=== PATIENT | female | born 1970 | race Caucasian/White ===

== ENCOUNTER 2020-01-12 15:40 | Emergency (ER) | payer OTHER, SELFPAY ==
[2020-01-12 16:07] VITALS: BP 153/89; PULSE 74; RESP 18; TEMP 36.3; O2SAT 100
[2020-01-12 16:27] LABS: Basophils Absolute Auto 0.1 K/mm3 (0.0-0.1); Basophils Percent Auto 1.4 % (0.2-1.2); Eosinophils Absolute Auto 0.5 K/mm3 (0-0.3); Eosinophils Percent Auto 4.9 % (0-4.4); Hematocrit 37.2 % (37.0-47.0); Hemoglobin 12.1 g/dL (12.0-15.0); Immature Granulocyte Absolute 0.04 K/mm3 (0.00-0.031); Immature Granulocyte Percent A 0.4 % (0-0.5); Lymphocytes Absolute Auto 3.27 K/mm3 (0.9-3.2); Lymphocytes Percent Auto 34.7 % (18.3-44.2); Mean Corpuscular HGB Conc 32.5 g/dl (32-36); Mean Corpuscular Hemoglobin 27.5 pg (26-34); Mean Corpuscular Volume 84.5 fl (80-100); Mean Platelet Volume 10.9 fl (7.4-10.4); Monocytes Absolute Auto 0.6 K/mm3 (0.1-0.6); Monocytes Percent Auto 6.3 % (2.6-8.5); Neutrophils Absolute Auto 4.9 K/mm3 (1.3-6.7); Neutrophils Percent Auto 52.3 % (45.5-73.1); Platelet Count Result 289 k/mm3 (150-375); Red Cell Distribution Width 15.3 % (11.5-14.5); White Blood Count 9.4 K/mm3 (4.5-10.0)
[2020-01-12 16:36] LABS: Add Urine Microscopic? YES; Appearance Urine Clear (Clear); Bacteria Urine Trace /hpf; Bilirubin Urine Negative (Negative); Blood Urine 1+ (Negative); Color Urine Yellow (Yellow); Glucose Urine UA Negative (Negative); Ketones Urine Negative (Negative); Leukocyte Esterase Ur 1+ LEU/UL (Negative); Mucus Urine Rare /lpf; Nitrate Urine Negative (Negative); Protein Urine Negative (Negative); RBC Urine 0-2 /hpf (0-2); Specific Grav Ur 1.027 (1.001-1.035); Squamous Epithelial Cell Urine Many /hpf (Few)
[2020-01-12 16:42] LABS: Alanine Aminotransferase 47 U/L (4-35); Alkaline Phosphatase 129 U/L (38-126); Anion Gap 11.8 mmol/L (7-16); Aspartate Amino Transferase 33 U/L (14-36); Bilirubin,Total 0.3 mg/dL (0.2-1.3); Blood Urea Nitrogen 20 mg/dL (7-17); Calcium 9.1 mg/dL (8.4-10.2); Carbon Dioxide 26 mmol/L (22-30); Chloride 105 mmol/L (98-107); Estimated CRCL calculation 125 ml/min; Estimated Glomerular Filt Rate > 60; Glucose 109 mg/dL (65-105); Lipase 78 U/L (23-300); Potassium 3.8 mmol/L (3.4-5.0); Sodium 139 mmol/L (137-145)
--- NOTE | 2020-01-12 17:42 | ED.ABDPAIN ---
HPI - Abdominal Pain General Chief Complaint: Abdominal Pain Stated Complaint: ABD Pain x 1 month Time Seen by Provider: 01/12/20 17:00 Source: patient Mode of arrival: ambulatory Limitations: no limitations History of Present Illness HPI narrative: 49-year-old female Complains of upper abdominal pain for little over a month For about 2 weeks it has been a little bit worse She feels like she can feel a swelling inside in her left upper quadrant She has some nausea and one episode of diarrhea today but those have not been present for most of the time No urinary symptoms She has an appointment for an ultrasound of something in her abdomen here next week she is not sure exactly what the study entails She previously had a cholecystectomy MD elicited complaint: abdominal pain Onset (ago): week(s) Pain Consistency: intermittent Quality: fullness Radiation: LUQ and epigastric Exacerbating factors: nothing Relieving factors: nothing Related Data Home Medications Medication Instructions Recorded Confirmed duloxetine 60 mg PO BID 05/13/19 05/13/19 ergocalciferol (vitamin D2) 50,000 unit PO WEEKLY 05/13/19 05/13/19 [Vitamin D2] famotidine 20 mg PO BID 05/13/19 05/13/19 hydroxyzine HCl 50 mg BYMOUTH TID PRN 05/13/19 05/13/19 metformin 500 mg BYMOUTH BID 05/13/19 05/13/19 Allergies Allergy/AdvReac Type Severity Reaction Status Date / Time No Known Allergies Allergy Verified 01/12/20 16:58 Review of Systems Review of Systems: All systems reviewed & are unremarkable except as noted in HPI and below Constitutional: Constitutional: Denies chills and Denies fever(s) ENT: Denies dysphagia and Denies epistaxis Cardiovascular: Cardiovascular: Denies chest pain Respiratory: Respiratory: Denies cough Gastrointestinal: Gastrointestinal: Reports abdominal pain, Reports diarrhea, Reports nausea and Reports vomiting Musculoskeletal: Musculoskeletal: Reports no additional musculoskeletal complaints Integumentary/Breasts: Skin/Breast: Reports system reviewed and no additional complaints, except as docu PMFSH Past Medical History Medical History Anxiety Back pain Depression Diabetes Diabetic neuropathy DM2 (diabetes mellitus, type 2) Endometriosis GERD (gastroesophageal reflux disease) Hip pain, left History of HPV infection HLD (hyperlipidemia) HTN (hypertension) Kidney stone Knee pain, left Numbness in both hands Ovarian cyst Bilateral Surgical History Surgical History History of cholecystectomy History of loop electrical excision procedure (LEEP) Family History Family History Mother Family history of kidney disease Family history of diabetes mellitus in first degree relative Sibling Family history of diabetes mellitus in first degree relative Patient's brother is in good health Other Cerebrovascular accident Family history of allergic disorder Family history of cardiovascular disease Hypertension Social History Social History (Updated 05/13/19 @ 18:14 by Eva Vásquez NP) Social History: The patient is single. She does not have a durable power food processor. She does need to have to be a full code. She has no children. She works in the bakery at [employer] Smoking status: Never smoker Alcohol intake: never Substance use: never Additional occupation/education comments: Bakery at [employer] Gender identity (if verbalized by the patient): Female Spiritual care concerns: No Agree to blood products: Yes Exam Const: General: no acute distress and well developed Nutritional Appearance: obese Orientation/consciousness: patient oriented x3 (alert) and Other orientation findings (Alert) HENMT: Head: normocephalic and atraumatic General nose exam: No nasal discharge present and no epistaxis F
[2020-01-12] MEDS: BELLADONNA ALK/PHENOB ELIX 10 ML, MAG HYDROX/ALUMINUM HYD/SIMETH 30 ML, LIDOCAINE HCL 2... PO (17:54)
--- NOTE | 2020-01-12 18:48 | PC.NURSE ---
pt reports no change in abd pain after gi cocktail
[2020-01-12 19:17] VITALS: BP 148/83; PULSE 71; RESP 16; O2SAT 100
== END 2020-01-12 19:19 | disposition home or self-care (01) ==
PROVIDERS: Emergency Medicine; Emergency Provider Emergency Medicine; PCP Family Medicine
DX: R10.13 Epigastric pain (principal); G89.29 Other chronic pain; K21.9 Gastro-esophageal reflux disease without esophagitis; E11.40 Type 2 diabetes mellitus with diabetic neuropathy, unspecified; Z79.84 Long term (current) use of oral hypoglycemic drugs; E78.5 Hyperlipidemia, unspecified; I10 Essential (primary) hypertension; Z87.442 Personal history of urinary calculi; F41.9 Anxiety disorder, unspecified; F32.9 Major depressive disorder, single episode, unspecified; N80.9 Endometriosis, unspecified
CPT/HCPCS: 36415; 80053; 81001; 81025; 83690; 85025; 99283; A9270

== ENCOUNTER 2020-01-18 08:57 | Outpatient (CLI) | payer OTHER, SELFPAY ==
--- NOTE | ~2020-01-18 | US_ITS ---
EXAMINATION: US abdomen complete EXAM DATE: 01/18/2020 09:52 INDICATION: Abdominal pain. TECHNIQUE: Multiple grayscale and Doppler images of the complete abdomen were obtained (by a technolo gist who performed the scan) and subsequently reviewed. Comparison is made to prior examination from 04/20/2014. FINDINGS: The abdominal aorta is normal in caliber. Visualized portion IVC is patent. The pancreatic head a nd body are normal in appearance. The pancreatic tail is not visualized. There is echogenic liver parenchyma, hepatic steatosis. There are no focal liver lesions identified. There is no evidence of intrahepatic biliary duct dilation. Portal venous flow was seen in the he patopedal, normal direction and has normal Doppler waveform. Common bile duct measures 5 mm, which is normal. The gallbladder fossa is unremarkable. Right kidney: There is normal contour and echogenicity. It measures 10.1 x 4.6 x 5.2 centimeters. There are no focal renal lesions identified. There is no hydronephrosis. Left kidney: There is normal contour and echogenicity. It measures 10.8 x 4.5 x 6.0 centimeters. T here are no focal renal lesions identified. There is no hydronephrosis. The spleen measures 10.5 x 5.4 centimeters and is morphologically normal. IMPRESSION: 1. Hepatic steatosis. Reviewed, dictated and finalized at location A. IMPRESSION: 1. Hepatic steatosis.
== END 2020-01-18 08:58 | disposition home or self-care (01) ==
LOC: ANHIMG 09:01
PROVIDERS: PCP Family Medicine; Visit Provider Family Medicine
DX: K76.0 Fatty (change of) liver, not elsewhere classified (principal)
CPT/HCPCS: 76700

== ENCOUNTER 2021-09-13 09:28 | Emergency (ER) | payer BC, MEDICAID, SELFPAY ==
[2021-09-13] VITALS (14 sets, daily range): BP systolic 112–147; BP diastolic 71–114; PULSE 72–167; RESP 13–33; TEMP 36.6; O2SAT 96–100
--- NOTE | 2021-09-13 09:35 | ECG_ITS ---
Measurements Intervals [place] Rate: 169 P: WV: 0 QRS: -9 QRSD: 96 T: 31 QT: 269 QTc: 452 Interpretive Statements SUPRAVENTRICULAR TACHYCARDIA CANNOT RULE OUT SEPTAL MYOCARDIAL INFARCTION , OLD [40+ ms Q WAVE IN V1/V2] COMPARED TO ECG 05/13/2019 12:45:31 SVT REPLACES SINUS RHYTHM Electronically Signed On 09-16-2021 16:59:04 CDT by Eric Parks M.D.
--- NOTE | 2021-09-13 09:45 | PC.NURSE ---
Pt given 6mg adenosine per verbal order by Dr. Car who was at bedside. Pt tolerated well and hr converted to SR 90s and is resting comfortably at this time. Normal saline 1L bolus started per verbal order as well.
[2021-09-13 09:53] LABS: Basophils Absolute Auto 0.2 K/mm3 (0.0-0.1); Basophils Percent Auto 1.5 % (0.2-1.2); Eosinophils Absolute Auto 0.8 K/mm3 (0-0.3); Eosinophils Percent Auto 6.3 % (0-4.4); Hematocrit 46.3 % (37.0-47.0); Immature Granulocyte Absolute 0.03 K/mm3 (0.00-0.031); Immature Granulocyte Percent A 0.2 % (0-0.5); Lymphocytes Absolute Auto 5.06 K/mm3 (0.9-3.2); Lymphocytes Percent Auto 39.1 % (18.3-44.2); Mean Corpuscular HGB Conc 32.4 g/dl (32-36); Mean Corpuscular Hemoglobin 27.4 pg (26-34); Mean Corpuscular Volume 84.6 fl (80-100); Mean Platelet Volume 11.1 fl (7.4-10.4); Monocytes Absolute Auto 0.7 K/mm3 (0.1-0.6); Neutrophils Absolute Auto 6.2 K/mm3 (1.3-6.7); Neutrophils Percent Auto 47.9 % (45.5-73.1); Platelet Count Result 341 k/mm3 (150-375); Red Blood Count 5.47 M/mm3 (4.2-5.4); Red Cell Distribution Width 14.3 % (11.5-14.5); White Blood Count 12.9 K/mm3 (4.5-10.0)
--- NOTE | 2021-09-13 09:55 | ED.ARRPALP ---
HPI - Arrhythmia/Palpitations General Chief Complaint: Arrhythmia/Palpitations Stated Complaint: arrhythmia, SOB Time Seen by Provider: 09/13/21 09:34 Source: patient History of Present Illness HPI narrative: 50-year-old female history of paroxysmal SVT presents to the emergency department for evaluation of tachycardia that started at approximately 9 AM today. Patient states she has previously have paroxysmal SVT and has required cardioversion with Adenocard previously. Patient was supposed to be on daily metoprolol but states that she has stopped this due to her prescription not being refilled. Patient states she was unable to get a refill from her primary care physician and has been off of the medication Related Data Home Medications Medication Instructions Recorded Confirmed duloxetine 60 mg PO BID 05/13/19 05/13/19 ergocalciferol (vitamin D2) 50,000 unit PO WEEKLY 05/13/19 05/13/19 [Vitamin D2] famotidine 20 mg PO BID 05/13/19 05/13/19 hydroxyzine HCl 50 mg BYMOUTH TID PRN 05/13/19 05/13/19 metformin 500 mg BYMOUTH BID 05/13/19 05/13/19 Allergies Allergy/AdvReac Type Severity Reaction Status Date / Time No Known Allergies Allergy Verified 01/12/20 16:58 Review of Systems Review of Systems: CONSTITUTIONAL: Denies fever, chills, or sweats. EYES: Denies visual changes, redness, or discharge. ENT: Denies rhinorrhea, congestion, sore throat, or otalgia. CARDIOVASCULAR: Heart palpitations with some chest pain RESPIRATORY: Denies cough or dyspnea. GASTROINTESTINAL: Denies abdominal pain, nausea, vomiting, or diarrhea. GENITOURINARY: Denies dysuria or hematuria. SKIN: Denies rash or itching. MUSCULOSKELETAL: Denies back pain, joint pain, or myalgia. NEUROLOGIC: Denies headache, numbness, or weakness. All systems reviewed & are unremarkable except as noted in HPI and below PMFSH Past Medical History Medical History (Updated 09/13/21 @ 12:04 by Weston Car MD) Anxiety Back pain Depression Diabetes Diabetic neuropathy DM2 (diabetes mellitus, type 2) Endometriosis GERD (gastroesophageal reflux disease) Hip pain, left History of HPV infection HLD (hyperlipidemia) HTN (hypertension) Kidney stone Knee pain, left Numbness in both hands Ovarian cyst Bilateral Surgical History Surgical History History of cholecystectomy History of loop electrical excision procedure (LEEP) Family History Family History Mother Family history of kidney disease Family history of diabetes mellitus in first degree relative Sibling Family history of diabetes mellitus in first degree relative Patient's brother is in good health Other Cerebrovascular accident Family history of allergic disorder Family history of cardiovascular disease Hypertension Social History Social History (Updated 05/13/19 @ 18:14 by Eva Vásquez NP) Social History: The patient is single. She does not have a durable power research attorney. She does need to have to be a full code. She has no children. 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 HEAD: normocephalic, atraumatic. EYES: PERRLA/EOMI, conjunctivae clear. NOSE: Normal no drainage EARS:TMS clear with good light reflex. THROAT: Pharynx clear, no exudate. NECK: Supple. No adenopathy, no masses. RESPIRATORY: Airway patent, respirations nonlabored. Clear to auscultation bilaterally, no rales, rhonchi, wheezing. CARDIOVASCULAR: Patient was in SVT but after Adenocard did convert back to normal sinus rhythm. ABDOMINAL: Soft, n
[2021-09-13 10:03] LABS: Alanine Aminotransferase 40 U/L (4-35); Albumin Level 4.7 g/dL (3.5-5.1); Alkaline Phosphatase 145 U/L (38-126); Anion Gap 9 mmol/L (8-16); Aspartate Amino Transferase 42 U/L (14-36); Bilirubin,Total 0.3 mg/dL (0.2-1.3); Blood Urea Nitrogen 21 mg/dL (7-17); Calcium 8.8 mg/dL (8.4-10.2); Carbon Dioxide 27 mmol/L (22-30); Chloride 104 mmol/L (98-107); Estimated CRCL calculation 73 ml/min; Estimated Glomerular Filt Rate > 60; Glucose 196 mg/dL (65-110); Potassium 3.6 mmol/L (3.4-5.0); Sodium 140 mmol/L (137-145)
[2021-09-13] MEDS: METOPROLOL SUCCINATE EXT REL 25 MG TABCR PO (10:12)
== END 2021-09-13 12:20 | disposition home or self-care (01) ==
PROVIDERS: Emergency Provider Emergency Medicine; PCP Family Medicine
DX: I47.1 Supraventricular tachycardia (principal); E11.40 Type 2 diabetes mellitus with diabetic neuropathy, unspecified; E78.5 Hyperlipidemia, unspecified; I10 Essential (primary) hypertension; K21.9 Gastro-esophageal reflux disease without esophagitis; Z87.442 Personal history of urinary calculi; Z79.84 Long term (current) use of oral hypoglycemic drugs; Z79.82 Long term (current) use of aspirin; R94.31 Abnormal electrocardiogram [ECG] [EKG]
CPT/HCPCS: 36415; 80053; 85025; 93005; 96374; 99283; 99284; A9270; J0153; J7030

== ENCOUNTER 2021-09-19 09:24 | Outpatient (CLI) | payer BC, MEDICAID, SELFPAY ==
--- NOTE | ~2021-09-19 | MR_ITS ---
EXAMINATION: MR lumbar spine wo con DATE: 09/19/2021 10:11 INDICATION: Low back pain, unspecified. TECHNIQUE: Magnetic resonance imaging (MRI) of the lumbar spine was performed without intravenous con trast. Sequences included sagittal T2-weighted FSE, sagittal T2-weighted FS FSE, sagittal T1-weighted FSE, and axial T2-weighted FSE. COMPARISON: None FINDINGS: There is 5 degrees dextrocurvature of thoracolumbar spine. L5 is sacralized. Vertebral body heights are normal. There is a hemangioma in L1 vertebral body. Intervertebral disc heights are norm al. The distal spinal cord signal intensity is normal. The conus medullaris is at T12. The following disc levels are specifically discussed: L1-L2: The disc does not extend beyond the endplate margin. There is mild bilateral facet joint osteo arthritis. There is no neural foraminal stenosis. There is no central canal stenosis. L2-L3: The disc does not extend beyond the endplate margin. There is mild bilateral facet joint osteo arthritis. There is no neural foraminal stenosis. There is no central canal stenosis. L3-L4: There is a left foraminal protrusion. There is mild bilateral facet joint osteoarthritis. Ther e is mild left neural foraminal stenosis. There is no central canal stenosis. L4-L5: There is a central protrusion. There is severe right and moderate left facet joint osteoarthri tis. There is mild bilateral neural foraminal stenosis. There is mild central canal stenosis. L5-S1: The disc does not extend beyond the endplate margin. There is no facet joint osteoarthritis. T here is no neural foraminal stenosis. There is no central canal stenosis. IMPRESSION: 1. Mild lumbar spondylosis. Reviewed, dictated and finalized at location A. IMPRESSION: 1. Mild lumbar spondylosis.
== END 2021-09-19 09:25 | disposition home or self-care (01) ==
PROVIDERS: PCP Family Medicine; Visit Provider Nurse Practitioner Adult Health
DX: M47.896 Other spondylosis, lumbar region (principal)
CPT/HCPCS: 72148

== ENCOUNTER 2021-11-14 13:25 | Outpatient (CLI) | payer BC, MEDICAID, SELFPAY ==
--- NOTE | ~2021-11-14 | MR_ITS ---
EXAMINATION: MR thoracic spine wo con DATE: 11/14/2021 14:17 INDICATION: Thoracic back pain. TECHNIQUE: Magnetic resonance imaging (MRI) of the thoracic spine was performed without intravenous c ontrast. Sagittal localizer T1-weighted FSE of the cervical spine was obtained. Thoracic spine sequen eliot included sagittal T2-weighted FSE, sagittal T1-weighted FSE, sagittal STIR FSE, and axial T2-weig hted FSE. COMPARISON: None FINDINGS: There is 4 degrees dextrocurvature of thoracic spine. There is mild chronic height loss of T8 vertebral body. There is mildly decreased disc height at T8-T9 with endplate remodeling. At T8-T9, there is a central extrusion with mild central canal stenosis. There is multilevel mild facet joint osteoarthritis. No neural foraminal stenosis. There is indentation of the posterior aspect of the spi nal cord at T5, consistent with an arachnoid cyst. The conus medullaris is at T12. IMPRESSION: 1. Mild thoracic spondylosis. 2. Indentation of the posterior aspect of the spinal cord at T5, consistent with an arachnoid cyst. Reviewed, dictated and finalized at location A. IMPRESSION: 1. Mild thoracic spondylosis. 2. Indentation of the posterior aspect of the spinal cord at T5, consistent wit h an arachnoid cyst.
== END 2021-11-14 13:26 | disposition home or self-care (01) ==
LOC: ANHIMG 13:27
PROVIDERS: PCP Family Medicine; Visit Provider Nurse Practitioner Adult Health
DX: M54.6 Pain in thoracic spine (principal); M47.814 Spondylosis without myelopathy or radiculopathy, thoracic region
CPT/HCPCS: 72146

== ENCOUNTER 2022-04-09 09:16 | Outpatient (CLI) | payer BC, MEDICAID, SELFPAY ==
--- NOTE | ~2022-04-09 | XR_ITS ---
EXAMINATION: XR chest 2V DATE: 04/09/2022 09:48 INDICATION: Type 2 diabetes TECHNIQUE: PA and lateral views of the chest are obtained. COMPARISON: 05/13/2019 FINDINGS: The lungs are free of acute opacities. No pleural effusion or pneumothorax. The cardiomedia stinal silhouette is normal. There is mild thoracic spondylosis. Surgical clips in the right upper qu adrant are likely from prior cholecystectomy. IMPRESSION: 1. No acute cardiopulmonary abnormality. Reviewed, dictated and finalized at location B.
--- NOTE | 2022-04-09 09:25 | ECG_ITS ---
Measurements Intervals [place] Rate: 74 P: -7 VA: 149 QRS: 5 QRSD: 88 T: 4 QT: 409 QTc: 455 Interpretive Statements SINUS RHYTHM NONSPECIFIC T-WAVE ABNORMALITY ABNORMAL ECG COMPARED TO ECG 09/13/2021 09:35:34 SINUS RHYTHM NOW PRESENT Electronically Signed On 04-09-2022 14:56:46 CDT by Juliocesar Corral M.D.
[2022-04-09 09:49] LABS: Basophils Absolute Auto 0.1 K/mm3 (0.0-0.1); Basophils Percent Auto 1.4 % (0.2-1.2); Eosinophils Absolute Auto 0.2 K/mm3 (0-0.3); Eosinophils Percent Auto 3.1 % (0-4.4); Hematocrit 42.4 % (37.0-47.0); Hemoglobin 13.6 g/dL (12.0-15.0); Immature Granulocyte Absolute 0.03 K/mm3 (0.00-0.031); Immature Granulocyte Percent A 0.4 % (0-0.5); Lymphocytes Absolute Auto 2.63 K/mm3 (0.9-3.2); Lymphocytes Percent Auto 33.9 % (18.3-44.2); Mean Corpuscular HGB Conc 32.1 g/dl (32-36); Mean Corpuscular Hemoglobin 27.5 pg (26-34); Mean Corpuscular Volume 85.8 fl (80-100); Mean Platelet Volume 10.9 fl (7.4-10.4); Monocytes Absolute Auto 0.3 K/mm3 (0.1-0.6); Monocytes Percent Auto 3.9 % (2.6-8.5); Neutrophils Absolute Auto 4.5 K/mm3 (1.3-6.7); Neutrophils Percent Auto 57.3 % (45.5-73.1); Platelet Count Result 298 k/mm3 (150-375); Red Blood Count 4.94 M/mm3 (4.2-5.4); Red Cell Distribution Width 13.9 % (11.5-14.5); White Blood Count 7.8 K/mm3 (4.5-10.0)
[2022-04-09 09:53] LABS: Add Urine Microscopic? YES; Appearance Urine Cloudy (Clear); Bilirubin Urine Negative (Negative); Blood Urine Negative (Negative); Color Urine Yellow (Yellow); Glucose Urine UA Negative (Negative); Ketones Urine Negative (Negative); Leukocyte Esterase Ur Negative LEU/UL (NEGATIVE); Mucus Urine Rare /lpf; Nitrate Urine Negative (Negative); Protein Urine Negative (Negative); Specific Grav Ur 1.018 (1.001-1.035); Squamous Epithelial Cell Urine Occasional /hpf (Few); Urobilinogen Urine Negative mg/dL (<2.0); WBC Urine 0-3 /hpf (0-3)
[2022-04-09 10:00] LABS: Anion Gap 10 mmol/L (8-16); Blood Urea Nitrogen 13 mg/dL (7-17); Calcium 8.9 mg/dL (8.4-10.2); Carbon Dioxide 29 mmol/L (22-30); Chloride 102 mmol/L (98-107); Estimated Glomerular Filt Rate > 60; Glucose 212 mg/dL (65-110); Potassium 4.2 mmol/L (3.4-5.0); Sodium 141 mmol/L (137-145)
[2022-04-09 10:03] LABS: Prothrombin Time 13.2 Seconds (11.1-14.7)
[2022-04-09 10:04] LABS: Partial Thromboplastin Time 30.7 SECONDS (22.3-36.8)
== END 2022-04-09 09:17 | disposition home or self-care (01) ==
LOC: ANHSURGERY 09:20
PROVIDERS: PCP Family Medicine; Visit Provider Neurological Surgery
DX: E11.40 Type 2 diabetes mellitus with diabetic neuropathy, unspecified (principal); Z01.818 Encounter for other preprocedural examination; R94.31 Abnormal electrocardiogram [ECG] [EKG]
CPT/HCPCS: 36415; 71046; 80048; 81001; 85025; 85610; 85730; 86850; 86900; 86901; 87086; 87088; 93005

== ENCOUNTER 2022-04-14 01:39 | Day surgery (SDC) | payer BC, MEDICAID, SELFPAY ==
[2022-04-07 11:09] VITALS: BMI 40.4
--- NOTE | 2022-04-07 11:17 | PC.NURSE ---
Report to the Outpatient Waiting Room, entrance under the green pavilion located off [facility], at time 6:00 on date 04/14/22. Planned Procedure Time: 7:30. Time changes happen often and if your time is changed the preop area will call you the afternoon before. - You and your visitor will be asked to self-screen and do not enter if you have any COVID symptoms. - We encourage only one visitor and NO visitors under age 16 are allowed at this time. Your visitor will receive communication by the phone number that is given day of service. - The patient visitor is requested to social distance or may leave the building when not with patient due to restrictions. - A mask is required within the hospital. Patients may have clear liquids (water, carbonated beverages, clear teas, apple juice) until 3 hours prior to surgery (4:30) with a maximum of 20 ounces. - No food from midnight until time of surgery Take the following medications with a SIP of water the morning of surgery: BUSPIRONE, DULOXETINE, HYDROXYZINE IF NEEDED, METOPROLOL, PREGABALIN Medications to discontinue per physician: VITAMINS/SUPPLEMENTS Date to take last dose: 04/10/22 Please no make-up, nail austrian, hairspray, perfume, deodorant, or body powder the day of surgery. No jewelry (including any body piercings) or valuables the day of surgery, leave them at home. Please take a shower or bath the night before, or the morning of, surgery with an antibacterial soap. Wear comfortable, loose fitting clothing. - Jewelry must be removed prior to entering the operating room. Rings and piercings that are not removed may be cut off. - The hospital will not accept responsibility for valuables. - Please leave all valuables, including medications, at home the day of surgery. If you are going home after surgery, a licensed motor pool driver must drive you home. - NO public transportation without another adult. - We recommend that an adult stay with you for 24 hours following discharge. - We also recommend that you do not drive, make important decision, drink alcoholic beverages, or take any drugs that were not prescribed by your health care provider for at least 24 hours after your discharge time. Follow any additional instructions given to you from your surgeon. If you or anyone in your household have experienced Covid symptoms in the past week, please notify your surgeon or the nurse liaison at the phone number below for possible testing. Telephone instructions given to AGUSTÍN MILLER and asked if any additional questions and then verbalized understanding. Patient advised to call surgeon office or pre surgery nurse liaison [phone] if any additional questions.
--- NOTE | 2022-04-13 14:53 | WPDANESEPPF ---
Anes - Initial Pre Proc Eval Procedure: Operation Date: 04/14/22 07:30 Proposed Procedures p Thoracic Laminotomy For Implantation of Spinal Cord Stimulator and Pulse Generator - Boni Bethea MD Date/Time: 04/13/22 14:53 Surgeon: Boni Bethea MD Pre Op Diagnosis: Diabetic Neuropathy Patient Data Age: 51 Gender: F Height: 1.71 m Weight: 118.84 kg Allergies Allergy/AdvReac Type Severity Reaction Status Date / Time No Known Allergies Allergy Verified 04/14/22 07:19 Home Medications Medication Instructions Recorded Confirmed Type duloxetine 60 mg capsule,delayed 60 mg PO BID 05/13/19 04/14/22 History release sprinkle ergocalciferol (vitamin D2) 1,250 50,000 unit PO WEEKLY 05/13/19 04/14/22 History mcg (50,000 unit) capsule (Vitamin D2) famotidine 20 mg tablet 20 mg PO BID PRN Acid Reflux 05/13/19 04/14/22 History hydroxyzine HCl 50 mg BYMOUTH TID PRN Anxiety 05/13/19 04/14/22 History metformin 500 mg BYMOUTH BID 05/13/19 04/14/22 History metoprolol succinate 25 mg 25 mg PO DAILY #14 tabs 09/13/21 04/14/22 Rx tablet,extended release 24 hr buspirone 15 mg tablet 15 mg PO BID 04/07/22 04/14/22 History magnesium 250 mg tablet 250 mg PO DAILY 04/07/22 04/14/22 History pregabalin 150 mg capsule 150 mg PO BID 04/07/22 04/14/22 History Patient hx anesthesia problems: none Family hx anesthesia problems: none Results Review: All pre-operative results and documents have been reviewed as part of the pre-operative evaluation. [facility] Past Medical History Medical History (Updated 01/16/22 @ 14:08 by Nayla Dow MD) Anxiety Back pain Depression Diabetes Diabetic neuropathy DM2 (diabetes mellitus, type 2) Endometriosis GERD (gastroesophageal reflux disease) Hip pain, left History of HPV infection HLD (hyperlipidemia) HTN (hypertension) Kidney stone Knee pain, left Numbness in both hands Ovarian cyst Bilateral Surgical History Surgical History History of cholecystectomy History of loop electrical excision procedure (LEEP) Family History Family History Mother Family history of kidney disease Family history of diabetes mellitus in first degree relative Sibling Family history of diabetes mellitus in first degree relative Patient's brother is in good health Other Cerebrovascular accident Family history of allergic disorder Family history of cardiovascular disease Hypertension Social History Social History Social History: The patient is single. She does not have a durable power ip technology transactions attorney. She does need to have to be a full code. She has no children. She works in the [employer] at [employer] Smoking status: Never smoker Alcohol intake: never Substance use: never Substance use type: does not use Living arrangements: alone Additional occupation/education comments: [employer] Gender identity (if verbalized by the patient): Female Spiritual care concerns: No Agree to blood products: Yes Anes - Eval Final PreProcedure Day of Procedure 04/13/22 14:53 Patient weight: morbidly obese Heart: regular rate and rhythm Lungs: clear to auscultation Airway: Mallampati scale class III Neurological: alert and oriented Last oral intake: >/= 8 hours ASA classification: III Emergent: no Anesthetic plan: proceed Anesthesia type and monitoring: general ETT and standard monitoring Results Review: All pre-operative results and documents have been reviewed as part of the pre-operative evaluation. Informed Consent: The patient's anesthetic plan and its attendant risks and benefits were discussed with the patient/family/POA. Questions were solicited and answers provided to the satisfaction of the patient/family/POA.
[2022-04-14] VITALS (12 sets, daily range): BP systolic 120–153; BP diastolic 62–83; PULSE 67–80; RESP 12–22; TEMP 35.9–36.3; O2SAT 95–100
--- NOTE | ~2022-04-14 | XR_ITS ---
XR fluoroscopy no charge Procedure: Thoracic laminotomy for spinal cord stimulator implantation TECHNIQUE: Fluoroscopy used during thoracic laminotomy for spinal cord stimulator implantation perfo rmed by [Boni Bethea MD] on 04/14/2022. 17 seconds of fluoroscopy with 6 fluoroscopic images captured. ] FINDINGS: Correlate with procedure note. IMPRESSION: Fluoroscopy used during thoracic laminotomy procedure. Reviewed, dictated and finalized at location B.
[2022-04-14] MEDS: LACTATED RINGERS 1,000 ML 30 ML IV CONT ×2 (07:00→10:54)
--- NOTE | 2022-04-14 07:05 | P.HP_ITS ---
H&P: HPI History of Present Illness Date/Time: 04/14/22 07:05 Chief Complaint: painful diabetic neuropathy Narrative: neuropathy in feet. had for a few years getting worse more recently. had Nevro trial with 65% improvement. [facility] Past Medical History Medical History (Updated 01/16/22 @ 14:08 by Nayla Dow MD) Anxiety Back pain Depression Diabetes Diabetic neuropathy DM2 (diabetes mellitus, type 2) Endometriosis GERD (gastroesophageal reflux disease) Hip pain, left History of HPV infection HLD (hyperlipidemia) HTN (hypertension) Kidney stone Knee pain, left Numbness in both hands Ovarian cyst Bilateral Surgical History Surgical History History of cholecystectomy History of loop electrical excision procedure (LEEP) Family History Family History Mother Family history of kidney disease Family history of diabetes mellitus in first degree relative Sibling Family history of diabetes mellitus in first degree relative Patient's brother is in good health Other Cerebrovascular accident Family history of allergic disorder Family history of cardiovascular disease Hypertension Social History Social History Social History: The patient is single. She does not have a durable power oncology rep specialist. She does need to have to be a full code. She has no children. 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 status: Never smoker Alcohol intake: never Substance use: never Substance use type: does not use Living arrangements: alone Additional occupation/education comments: Bakery at [employer] Gender identity (if verbalized by the patient): Female Spiritual care concerns: No Agree to blood products: Yes Meds Home Medications and Allergies Home Medications Medication Instructions Recorded Confirmed Type duloxetine 60 mg capsule,delayed 60 mg PO BID 05/13/19 04/07/22 History release sprinkle ergocalciferol (vitamin D2) 1,250 50,000 unit PO WEEKLY 05/13/19 04/07/22 History mcg (50,000 unit) capsule (Vitamin D2) famotidine 20 mg tablet 20 mg PO BID PRN Acid Reflux 05/13/19 04/07/22 History hydroxyzine HCl 50 mg BYMOUTH TID PRN Anxiety 05/13/19 04/07/22 History metformin 500 mg BYMOUTH BID 05/13/19 04/07/22 History metoprolol succinate 25 mg 25 mg PO DAILY #14 tabs 09/13/21 04/07/22 Rx tablet,extended release 24 hr buspirone 15 mg tablet 15 mg PO BID 04/07/22 04/07/22 History magnesium 250 mg tablet 250 mg PO DAILY 04/07/22 04/07/22 History pregabalin 150 mg capsule 150 mg PO BID 04/07/22 04/07/22 History Allergies Allergy/AdvReac Type Severity Reaction Status Date / Time No Known Allergies Allergy Verified 04/07/22 11:06 Assessment and Plan Assessment and plan (1) Diabetic neuropathy: Code(s): E11.40 - Type 2 diabetes mellitus with diabetic neuropathy, unspecified Status: Chronic Plan for Nevro thoracic paddle spinal cord stimulator implantation
[2022-04-14 07:08] LABS: Glucose Point of Care 147 mg/dl (65-105)
--- NOTE | 2022-04-14 07:13 | WPDHPUPDATE1 ---
History and Physical Update Update Date/Time: 04/14/22 07:13 History and Physical has been reviewed, including an updated exam of the patient. There are NO changes in the patient's condition. Risks, benefits, and alternatives have been discussed and questions answered. Patient agrees to proceed with procedure.
--- NOTE | 2022-04-14 07:28 | WPDHPUPDATE1 ---
History and Physical Update Update Date/Time: 04/14/22 07:28 History and Physical has been reviewed, including an updated exam of the patient. There are NO changes in the patient's condition. Risks, benefits, and alternatives have been discussed and questions answered. Patient agrees to proceed with procedure.
--- NOTE | 2022-04-14 07:30 | WPDHPUPDATE1 ---
History and Physical Update Update Date/Time: 04/14/22 07:30 History and Physical has been reviewed, including an updated exam of the patient. There are NO changes in the patient's condition. Plan is for thoracic laminotomy for implantation of Nevro paddle spinal cord stimulator electrode with implantation of the implantable pulse generator to the right subcutaneous buttock. Risks, benefits, and alternatives have been discussed and questions answered. Patient agrees to proceed with procedure.
[2022-04-14] MEDS: ceFAZolin 2 GM/D5W 50 ML 2 GM/50 ML BAG IVPB (07:34)
[2022-04-14] MEDS: ceFAZolin SODIUM 1 GM VIAL (08:24)
[2022-04-14] MEDS: BUPIVACAINE/EPINEPHRINE 0.25% 50 ML VIAL INFILTRATE (08:25)
--- NOTE | 2022-04-14 10:31 | W.PM.PROC2 ---
Procedure Note - Detailed Date of Procedure 04/14/22 Pre-op Diagnosis Diabetic Neuropathy Post-op Diagnosis Same Procedure Performed Thoracic laminotomy for implantation of spinal cord stimulator lead (Nevro) Implantation of IPG in right subcutaneous buttock (Nevro, rechargeable multiple-array) Surgeon Boni Bethea MD [employer] Oper[employer] Supervisor MINNIE Pettit Anesthesia General Indications This is a 51-year-old morbidly obese woman with painful diabetic neuropathy characterized by pain in the feet the Certas numbness became painful over the last few years. She had a successful Nevro trial performed 2 months ago. Review here for the permanent implantation with the paddle lead. The nature of the procedure as well as risks and postoperative expectations were discussed with the patient prior to proceeding. Description of Procedure Patient was identified in preop and marked and consent was obtained. She was then transferred to the operating room and placed under general anesthetic and intubated transferred in prone onto a Noel frame. X-ray was used to mike levels and planned incisions. She was then prepped and draped in sterile fashion. IV antibiotic as well as local anesthetic was applied prior to starting. A time-out was performed. Skin knife to open the midline thoracic incision. We did have to make a long incision as she was very large. Dissected through of very thick layer of subcutaneous fat and identified the spinous process. A Otf was used to confirm level which was identified just below the T10 pedicle. We then dissected and exposed the lamina. After placing Chahal retractors and maintaining hemostasis a laminotomy was performed. There was a generous layer of epidural fat. As well as some scarring from percutaneous implant I presume. With laminotomy performed we were able to place the 2 x 8 paddle without resistance into the epidural space. An x-ray was taken. I did feel it was a little high with only the lower electrodes spanning T9-T10. For this reason I exposed lower down and performed along the laminotomy level below while leaving a bridge of bone. once this laminotomy was performed I passed the paddle without resistance into the epidural space. An x-ray was performed and demonstrated adequate positioning. The leads were then anchored down to the spinous process of the level below. We then fashioned a subcutaneous pocket in the right buttock for the battery. We then tunneled the leads to the pocket. An attached it to the IPG. Impedance check was performed and was adequate. The leads were torqued down tight. And the battery was placed and sutured into the pocket. We decided to close. Thorough irrigation followed by hemostasis. The fascia was closed with 0 Vicryl as followed by 2-0 Vicryl skin subcutaneous fat and 2-0 inverted Vicryl in the dermal layer. The pocket was closed with 2-0 Vicryl in the deep layers followed by 3-0 Vicryl dermal and 4-0 Monocryl subcuticular was used to close both skin incisions. All counts were correct. No complications were encountered. Implants Nevro 2x8 paddle lead, Nevro Senza IPG Estimated Blood Loss 150 (150cc) Drains No Packing No Pathology None sent Complications No immediate complications Condition Stable Disposition Same day
[2022-04-14 11:15] LABS: Glucose Point of Care 158 mg/dl (65-105)
[2022-04-14] MEDS: fentaNYL CITRATE INJ (*CRX) 100 MCG/2 ML VIAL 25 MCG IV PUSH ×6 (11:19→11:42)
[2022-04-14] MEDS: HYDROmorphone HCL INJ (*CRX) 1 MG/ML SYR 0.5 MG IV PUSH ×4 (11:59→12:21)
[2022-04-14] MEDS: oxyCODONE HCL (*CRX) 5 MG TAB IR PO (13:03)
== END 2022-04-14 13:34 | disposition home or self-care (01) ==
PROVIDERS: PCP Family Medicine; Visit Provider Neurological Surgery
PROC: (CPT 63685; principal; 2022-04-14 07:30)
DX: E11.42 Type 2 diabetes mellitus with diabetic polyneuropathy (principal); I10 Essential (primary) hypertension; E78.5 Hyperlipidemia, unspecified; K21.9 Gastro-esophageal reflux disease without esophagitis; F32.A Depression, unspecified; F41.9 Anxiety disorder, unspecified; E66.01 Morbid (severe) obesity due to excess calories; Z68.39 Body mass index [BMI] 39.0-39.9, adult; Z79.84 Long term (current) use of oral hypoglycemic drugs
CPT/HCPCS: 63685; 63655; 36415; 71046; 80048; 81001; 82948; 85025; 85610; 85730; 86850; 86900; 86901; 87086; 87088; 93005; 99199; A9270; J0690; J1100; J1170; J2250; J2405; J2704; J3010; J3370; J7120

== ENCOUNTER 2022-10-29 08:36 | Outpatient (CLI) | payer BC, MEDICAID, SELFPAY ==
--- NOTE | ~2022-10-29 | US_ITS ---
US arterial ankle brachial ind INDICATION: Polyneuropathy TECHNIQUE: Segmental pressures and plethysmographic and Doppler waveforms of the brachial and lower e xtremity arteries were obtained. COMPARISON: 09/29/2015 FINDINGS: Right and left brachial artery pressures of 141 mm Hg and 128 mm Hg, respectively, are concordant (no rmal difference <= 30 mmHg). The right ankle-brachial index (ARABELLA) is 1.13 (normal >= 0.9-1.0). The right great toe-brachial index (TBI) is 0.51 (normal >= 0.60). The left ARABELLA is 1.03. The left TBI is 0.59. IMPRESSION: 1. Diminished bilateral toe brachial indices, consistent with mild peripheral arterial disease. Reviewed, dictated and finalized at location L. IMPRESSION: 1. Diminished bilateral toe brachial indices, consistent with mild peripheral a rterial disease.
== END 2022-10-29 08:37 | disposition home or self-care (01) ==
PROVIDERS: PCP Family Medicine; Visit Provider Nurse Practitioner Adult Health
DX: I73.9 Peripheral vascular disease, unspecified (principal)
CPT/HCPCS: 93922

== ENCOUNTER 2022-12-29 09:22 | Outpatient (CLI) | payer BC, MEDICAID, SELFPAY ==
--- NOTE | ~2022-12-29 | MM_ITS ---
EXAMINATION: MM screening jeni BI w guillermo HISTORY: Screening mammogram TECHNIQUE: Craniocaudal and mediolateral oblique 3-D tomosynthesis images were obtained and synthetic 2-D images were generated. CAD analysis was submitted and interpreted. COMPARISON: 02/07/2018 bilateral screening mammogram BREAST PARENCHYMAL COMPOSITION: There are scattered areas of fibroglandular density. FINDINGS: There is no evidence of suspicious mass, calcification, or architectural distortion to sugg est malignancy in either breast. There has been no suspicious interval change. IMPRESSION: 1. No mammographic evidence of malignancy. 2. Recommend routine screening mammography in one year. BI-RADS Category 1: Negative Reviewed, dictated and finalized at location A.
== END 2022-12-29 09:23 | disposition home or self-care (01) ==
PROVIDERS: PCP Family Medicine; Visit Provider Obstetrics & Gynecology Gynecology
DX: Z12.31 Encounter for screening mammogram for malignant neoplasm of breast (principal)
CPT/HCPCS: 77063; 77067

== ENCOUNTER 2023-03-31 09:31 | Outpatient (CLI) | payer BC, MEDICAID, SELFPAY | END 2023-03-31 09:32 | disposition home or self-care (01) | PROVIDERS: PCP Family Medicine; Visit Provider Nurse Practitioner Adult Health | DX: M71.22 Synovial cyst of popliteal space [Baker], left knee (principal) | CPT/HCPCS: 73564 ==

== ENCOUNTER 2023-06-16 00:32 | Day surgery (SDC) | payer BC, MEDICAID, SELFPAY ==
[2023-05-26 09:45] VITALS: BMI 34.5
--- NOTE | 2023-06-15 11:21 | SUR.PREOP ---
Patient called regarding upcoming procedure. Reviewed preop instructions, appointment times, and procedure prep.
--- NOTE | 2023-06-15 13:15 | PM.HPGS ---
History of Present Illness History of Present Illness Consent: Risks, benefits, and alternatives have been discussed and questions answered. Patient agrees to proceed with procedure. Chief complaint: neoplasm screening Narrative: Apryl Pham is a 52 year old female was referred for colon cancer screening. Review of Systems Review of Systems: All systems reviewed & are unremarkable except as noted in HPI and below PMFSH Past Medical History Medical History Anxiety Back pain Depression Diabetes Diabetic neuropathy DM2 (diabetes mellitus, type 2) Endometriosis GERD (gastroesophageal reflux disease) Hip pain, left History of HPV infection HLD (hyperlipidemia) HTN (hypertension) Kidney stone Knee pain, left Numbness in both hands Ovarian cyst Bilateral Surgical History Surgical History History of cholecystectomy History of loop electrical excision procedure (LEEP) Family History Family History Mother Family history of kidney disease Family history of diabetes mellitus in first degree relative Sibling Family history of diabetes mellitus in first degree relative Patient's brother is in good health Other Cerebrovascular accident Family history of allergic disorder Family history of cardiovascular disease Hypertension Social History Social History Social History: The patient is single. She does not have a durable power environmental attorney. She does need to have to be a full code. She has no children. She works in the bakery at [employer] Smoking status: Never smoker Alcohol intake: never Substance use: never Substance use type: does not use Living arrangements: alone Occupation/Education: occupation Additional occupation/education comments: Bakery at [employer] Gender identity (if verbalized by the patient): Female Spiritual care concerns: No Agree to blood products: Yes Meds Home Medications and Allergies Home Medications Medication Instructions Recorded Confirmed Type duloxetine 60 mg capsule,delayed 60 mg PO BID 05/13/19 06/16/23 History release sprinkle ergocalciferol (vitamin D2) 1,250 50,000 unit PO WEEKLY 05/13/19 06/16/23 History mcg (50,000 unit) capsule (Vitamin D2) famotidine 20 mg tablet 20 mg PO BID PRN Acid Reflux 05/13/19 06/16/23 History hydroxyzine HCl 50 mg BYMOUTH TID PRN Anxiety 05/13/19 06/16/23 History metoprolol succinate 25 mg 25 mg PO DAILY #14 tabs 09/13/21 06/16/23 Rx tablet,extended release 24 hr buspirone 15 mg tablet 15 mg PO BID 04/07/22 06/16/23 History pregabalin 150 mg capsule 150 mg PO BID 04/07/22 06/16/23 History cilostazol 100 mg tablet 100 mg PO BID 05/26/23 06/16/23 History dulaglutide 1.5 mg/0.5 mL 1.5 mg subcut WEEKLY 05/26/23 06/16/23 History subcutaneous pen injector (Trulicity) hydrochlorothiazide 25 mg tablet 25 mg PO DAILY 05/26/23 06/16/23 History ibuprofen 400 mg tablet 400 mg PO Q6H PRN Pain 05/26/23 06/16/23 History metformin 500 mg tablet 500 mg PO BID 05/26/23 06/16/23 History rosuvastatin 5 mg tablet 5 mg PO DAILY 05/26/23 06/16/23 History Allergies Allergy/AdvReac Type Severity Reaction Status Date / Time No Known Allergies Allergy Verified 06/16/23 07:42 Exam Const: General: alert Orientation/consciousness: patient oriented x3 Resp: Auscultation: clear to auscultation bilaterally Cardio: Rhythm: regular rhythm GI: GI Palp: Yes Soft to palpation and No Tenderness to palpation present (GI) Neuro: General: patient oriented x3 Assessment and Plan Assessment and plan (1) Colon cancer screening: Code(s): Z12.11 - Encounter for screening for malignant neoplasm of colon Status: Acute Assessment and Plan: Colonoscopy with possible biopsy o
[2023-06-16 07:43] VITALS: BP 135/77; PULSE 62; RESP 18; TEMP 36.3; O2SAT 99; BMI 35.2
[2023-06-16] MEDS: LACTATED RINGERS 1,000 ML 150 ML IV CONT (07:52)
[2023-06-16 07:57] LABS: Glucose Point of Care 83 mg/dl (65-105)
--- NOTE | 2023-06-16 07:59 | WPDANESEPPF ---
Anes - Initial Pre Proc Eval Procedure: Operation Date: 06/16/23 09:00 Proposed Procedures p Screening Colonoscopy - Colton Viramontes MD Date/Time: 06/16/23 07:59 Surgeon: Colton Viramontes MD Pre Op Diagnosis: neoplasm screening Patient Data Age: 52 Gender: F Height: 1.7 m Weight: 102.1 kg Last Vital Signs Temp 97.3 F L 06/16/23 07:43 Pulse 62 06/16/23 07:43 Resp 18 06/16/23 07:43 BP 135/77 06/16/23 07:43 Pulse Ox 99 06/16/23 07:43 O2 Del Method Room Air 06/16/23 07:43 Allergies Allergy/AdvReac Type Severity Reaction Status Date / Time No Known Allergies Allergy Verified 06/16/23 07:42 Home Medications Medication Instructions Recorded Confirmed Type duloxetine 60 mg capsule,delayed 60 mg PO BID 05/13/19 06/16/23 History release sprinkle ergocalciferol (vitamin D2) 1,250 50,000 unit PO WEEKLY 05/13/19 06/16/23 History mcg (50,000 unit) capsule (Vitamin D2) famotidine 20 mg tablet 20 mg PO BID PRN Acid Reflux 05/13/19 06/16/23 History hydroxyzine HCl 50 mg BYMOUTH TID PRN Anxiety 05/13/19 06/16/23 History metoprolol succinate 25 mg 25 mg PO DAILY #14 tabs 09/13/21 06/16/23 Rx tablet,extended release 24 hr buspirone 15 mg tablet 15 mg PO BID 04/07/22 06/16/23 History pregabalin 150 mg capsule 150 mg PO BID 04/07/22 06/16/23 History cilostazol 100 mg tablet 100 mg PO BID 05/26/23 06/16/23 History dulaglutide 1.5 mg/0.5 mL 1.5 mg subcut WEEKLY 05/26/23 06/16/23 History subcutaneous pen injector (Trulicity) hydrochlorothiazide 25 mg tablet 25 mg PO DAILY 05/26/23 06/16/23 History ibuprofen 400 mg tablet 400 mg PO Q6H PRN Pain 05/26/23 06/16/23 History metformin 500 mg tablet 500 mg PO BID 05/26/23 06/16/23 History rosuvastatin 5 mg tablet 5 mg PO DAILY 05/26/23 06/16/23 History Laboratory Tests 06/16/23 07:54 POC Capillary Glucose 83 mg/dl (65-105) Patient hx anesthesia problems: none Family hx anesthesia problems: none Results Review: All pre-operative results and documents have been reviewed as part of the pre-operative evaluation. [facility], [facility] Past Medical History Medical History (Updated 06/15/23 @ 13:15 by Colton Viramontes MD) Anxiety Back pain Depression Diabetes Diabetic neuropathy DM2 (diabetes mellitus, type 2) Endometriosis GERD (gastroesophageal reflux disease) Hip pain, left History of HPV infection HLD (hyperlipidemia) HTN (hypertension) Kidney stone Knee pain, left Numbness in both hands Ovarian cyst Bilateral Surgical History Surgical History History of cholecystectomy History of loop electrical excision procedure (LEEP) Family History Family History Mother Family history of kidney disease Family history of diabetes mellitus in first degree relative Sibling Family history of diabetes mellitus in first degree relative Patient's brother is in good health Other Cerebrovascular accident Family history of allergic disorder Family history of cardiovascular disease Hypertension Social History Social History Social History: The patient is single. She does not have a durable power senior attorney. She does need to have to be a full code. She has no children. 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
[2023-06-16 09:10] VITALS: BP 134/87; PULSE 93; RESP 20; O2SAT 90
[2023-06-16 09:20] VITALS: BP 133/74; PULSE 66; RESP 18; O2SAT 95
[2023-06-16 09:30] VITALS: BP 135/75; PULSE 60; RESP 22; O2SAT 98
== END 2023-06-16 09:37 | disposition home or self-care (01) ==
PROVIDERS: PCP Family Medicine; Visit Provider Internal Medicine Gastroenterology
PROC: 0DJD8ZZ Inspection of Lower Intestinal Tract, Via Natural or Artificial Opening Endoscopic (ICD-10-PCS; CPT 45378; principal; 2023-06-16 09:00)
DX: Z12.11 Encounter for screening for malignant neoplasm of colon (principal); I10 Essential (primary) hypertension; E78.5 Hyperlipidemia, unspecified; F41.9 Anxiety disorder, unspecified; F32.A Depression, unspecified; E11.40 Type 2 diabetes mellitus with diabetic neuropathy, unspecified; N80.9 Endometriosis, unspecified; K21.9 Gastro-esophageal reflux disease without esophagitis; E66.9 Obesity, unspecified; Z68.35 Body mass index [BMI] 35.0-35.9, adult; Z79.85 Long-term (current) use of injectable non-insulin antidiabetic drugs; Z79.84 Long term (current) use of oral hypoglycemic drugs; Z98.890 Other specified postprocedural states; Z90.49 Acquired absence of other specified parts of digestive tract; Z82.49 Family history of ischemic heart disease and other diseases of the circulatory system
CPT/HCPCS: 45378; 82948; J2704; J7120

== ENCOUNTER 2023-11-19 07:02 | Outpatient (CLI) | payer BC, SELFPAY ==
--- NOTE | ~2023-11-19 | CT_ITS ---
Non-contrast CT scan of the Abdomen and Pelvis Clinical indication: Abdominal pain Technique: 2.5 mm axial scans were obtained through the abdomen and pelvis without intravenous or or al contrast. Dose reduction technique was used on this scan by utilizing automated exposure control a nd iterative reconstruction technique. The dose-length product (DLP) was 1400.77 mGy-cm. Findings: Images through the lung bases reveal no abnormalities. There is no evidence of renal or ureteral calculi. The kidneys and the ureters are nondilated. The liver, spleen, pancreas, and adrenals appear normal. Cholecystectomy clips are present. There is no aortic aneurysm. There is no evidence of bowel obstruction. Moderate fat-containing umbilical hernia present. Images through the pelvis were performed. There is no evidence of ascites or lymphadenopathy. Urinary bladder unremarkable. No adnexal mass seen. Impression: Moderate fat-containing umbilical hernia. No other significant findings. Reviewed, dictated and finalized at [facility]. Impression: Moderate fat-containing umbilical hernia. No other significant findings.
== END 2023-11-19 07:03 | disposition home or self-care (01) ==
PROVIDERS: PCP Family Medicine
DX: K42.9 Umbilical hernia without obstruction or gangrene (principal); R10.9 Unspecified abdominal pain
CPT/HCPCS: 74176

== ENCOUNTER 2023-12-14 12:11 | Outpatient (CLI) | payer BC, SELFPAY ==
--- NOTE | 2023-12-14 12:27 | ECG_ITS ---
Test Date: 2023-12-14 12:40:35 Measurements Intervals [place] Rate: 78 P: 7 ND: 156 QRS: -8 QRSD: 93 T: -5 QT: 391 QTc: 447 Interpretive Statements SINUS RHYTHM WARNING: DATA QUALITY MAY AFFECT INTERPRETATION No previous ECG available for comparison Electronically Signed On 12-14-2023 13:41:26 CDT by Jakob Rivera M.D.
[2023-12-14 13:04] LABS: Anion Gap 9 mmol/L (4-12); Blood Urea Nitrogen 15 mg/dL (7-17); Calcium 9.2 mg/dL (8.4-10.2); Carbon Dioxide 32 mmol/L (22-30); Chloride 101 mmol/L (98-107); Estimated Glomerular Filt Rate > 60; Glucose 169 mg/dL (65-110); Potassium 2.9 mmol/L (3.4-5.0); Sodium 142 mmol/L (137-145)
== END 2023-12-14 12:12 | disposition home or self-care (01) ==
LOC: ANHSURGERY 12:16
PROVIDERS: Anesthesiology; PCP Family Medicine; Visit Provider Surgery
DX: E11.9 Type 2 diabetes mellitus without complications (principal)
CPT/HCPCS: 36415; 80048; 93005

== ENCOUNTER 2023-12-20 02:46 | Day surgery (SDC) | payer BC, SELFPAY ==
[2023-12-10 12:27] VITALS: BMI 34.5
--- NOTE | 2023-12-10 12:36 | PC.NURSE ---
Report to the Outpatient Waiting Room, entrance under the green pavilion located off [facility], at time _0930_ on date _12/20/23_. Planned Procedure Time: _1130_. Time changes happen often and if your time is changed the preop area will call you the afternoon before. - You and your visitor will be asked to self-screen and do not enter if you have any COVID symptoms. - A mask is optional within the hospital at this time. Patients may have clear liquids (water, carbonated beverages, clear teas, apple juice) until 3 hours prior to surgery with a maximum of 20 ounces. - No food from midnight until time of surgery - Infants may have breast milk until 4 hours before surgery, infant formula 6 hours prior to surgery. - Children will be allowed to drink immediately following surgery. If applicable, please bring a bottle or sippy cup to assist with drinking. Juice, water, soda, and popsicles are readily available. For infants on formula, please bring formula the day of surgery. Pacifiers are allowed. Take the following medications with a SIP of water the morning of surgery: BUSPIRONE, DULOXETINE, PREGABALINE DO NOT STOP ANY OF YOUR OTHER PRESCRIPTION MEDICATIONS PRIOR TO SURGERY ?EXCEPT THE FOLLOWING Medications to discontinue per physician PT TO ASK PHYSICIAN ABOUT STOPPING CILOSTAZOL, STATES WAS TOLD ASPISRIN 81MG WAS OK TO CONTINUE. STOP IBUPROFEN 12/17/23 Date to take last dose Please no make-up, nail sao tomean, hairspray, perfume, deodorant, or body powder the day of surgery. No jewelry (including any body piercings) or valuables the day of surgery, leave them at home. Please take a shower or bath the night before, or the morning of, surgery with HIBICLENS antibacterial soap. Wear comfortable, loose fitting clothing. Children are encouraged to wear pajamas. - Jewelry must be removed prior to entering the operating room. Rings and piercings that are not removed may be cut off. - The hospital will not accept responsibility for valuables. - Please leave all valuables, including medications, at home the day of surgery. If you are going home after surgery, a licensed belly dump driver must drive you home. - NO public transportation without another adult if you receive anesthesia. - We recommend that an adult stay with you for 24 hours following discharge. - We also recommend that you do not drive, make important decision, drink alcoholic beverages, or take any drugs that were not prescribed by your health care provider for at least 24 hours after your discharge time. For Pediatric surgeries, we recommend two adults accompany the child home. Follow any additional instructions given to you from your surgeon. If you or anyone in your household have experienced Covid symptoms in the past week, please notify your surgeon or the nurse liaison at the phone number below for possible testing. Telephone instructions given to _CARLYN _and asked if any additional questions and then verbalized understanding. Patient advised to call surgeon office or pre surgery nurse liaison [phone] if any additional questions.
[2023-12-20 10:31] VITALS: BP 128/68; PULSE 61; RESP 16; TEMP 36.3; O2SAT 100
[2023-12-20 10:35] VITALS: BMI 33.6
[2023-12-20] MEDS: KETOROLAC 15 MG/ML VIAL (*BKC) IV PUSH (12:02)
[2023-12-20 12:10] LABS: Potassium 2.9 mmol/L (3.4-5.0)
[2023-12-20 12:11] LABS: Glucose Point of Care 77 mg/dl (65-105)
--- NOTE | 2023-12-20 12:15 | SUR.PREOP ---
1215- Notified Dr. Hardy patient's potassium 2.9 [address] lab draw[address] Dr. Hardy aware and in to bedside to speak with patient.
--- NOTE | 2023-12-20 12:55 | SUR.PREOP ---
1225- Dr. Hardy notified Dr. Matos of patient's 2.[address] Hardy and Dr. Matos patient's surgery canceled due to low potassium level. 1230- Patient aware surgery canceled, need to follow up with PCP and to reschedule surgery with Dr. Matos's office. 1255- Patient discharged home with discharge instructions. All questions and concerns answered.
== END 2023-12-20 12:55 | disposition home or self-care (01) ==
PROVIDERS: Anesthesiology; PCP Family Medicine; Visit Provider Surgery
DX: K42.9 Umbilical hernia without obstruction or gangrene (principal); E87.6 Hypokalemia; Z53.09 Procedure and treatment not carried out because of other contraindication
CPT/HCPCS: 36415; 82948; 84132; 99214; G0463; J1885

== ENCOUNTER 2024-01-03 00:46 | Day surgery (SDC) | payer BC, SELFPAY ==
[2023-12-24 11:48] VITALS: BMI 35.1
--- NOTE | 2023-12-24 11:53 | PC.NURSE ---
Report to the Outpatient Waiting Room, entrance under the green pavilion located off [facility], at time _0830_ on date _[id number]_. Planned Procedure Time: _1030_. Time changes happen often and if your time is changed the preop area will call you the afternoon before. - You and your visitor will be asked to self-screen and do not enter if you have any COVID symptoms. - A mask is optional within the hospital at this time. Patients may have clear liquids (water, carbonated beverages, clear teas, apple juice) until 3 hours prior to surgery with a maximum of 20 ounces. - No food from midnight until time of surgery Take the following medications with a SIP of water the morning of surgery: ___Buspirone and Duloxetine DO NOT STOP ANY OF YOUR OTHER PRESCRIPTION MEDICATIONS PRIOR TO SURGERY ?EXCEPT THE FOLLOWING Medications to discontinue per physician Patient is planning to stop Cilostazol and Ibuprofen 4 days before surgery. Please no make-up, nail cambodian, hairspray, perfume, deodorant, or body powder the day of surgery. No jewelry (including any body piercings) or valuables the day of surgery, leave them at home. Please take a shower or bath the night before, or the morning of, surgery with an antibacterial soap. Wear comfortable, loose fitting clothing. - Jewelry must be removed prior to entering the operating room. Rings and piercings that are not removed may be cut off. - The hospital will not accept responsibility for valuables. - Please leave all valuables, including medications, at home the day of surgery. If you are going home after surgery, a licensed medical delivery driver must drive you home. - NO public transportation without another adult if you receive anesthesia. - We recommend that an adult stay with you for 24 hours following discharge. - We also recommend that you do not drive, make important decision, drink alcoholic beverages, or take any drugs that were not prescribed by your health care provider for at least 24 hours after your discharge time. Follow any additional instructions given to you from your surgeon. If you or anyone in your household have experienced Covid symptoms in the past week, please notify your surgeon or the nurse liaison at the phone number below for possible testing. Telephone instructions given to __Apryl___and asked if any additional questions and then verbalized understanding. Patient advised to call surgeon office or pre surgery nurse liaison [phone] if any additional questions.
[2024-01-03] VITALS (10 sets, daily range): BP systolic 122–151; BP diastolic 59–70; PULSE 71–86; RESP 14–20; TEMP 36.2–36.3; O2SAT 92–100; BMI 35.2
[2024-01-03] MEDS: LACTATED RINGERS 1,000 ML 30 ML IV CONT ×2 (08:51→14:43)
[2024-01-03] MEDS: KETOROLAC 15 MG/ML VIAL (*BKC) IV PUSH ×2 (08:57→13:09)
[2024-01-03 09:14] LABS: Glucose Point of Care 98 mg/dl (65-105)
--- NOTE | 2024-01-03 11:15 | WPDANESEPPF ---
Anes - Initial Pre Proc Eval Procedure: Operation Date: 01/03/24 10:30 Proposed Procedures p Open Umbilical Hernia Repair - Shaun Matos MD Date/Time: 01/03/24 11:15 Surgeon: Shaun Matso MD Pre Op Diagnosis: umbilical hernia Patient Data Age: 53 Gender: F Height: 1.7 m Weight: 102.2 kg Last Vital Signs Temp 97.2 F L 01/03/24 09:20 Pulse 72 01/03/24 09:20 Resp 16 01/03/24 09:20 BP 127/68 01/03/24 09:20 Pulse Ox 100 01/03/24 09:20 O2 Del Method Room Air 01/03/24 09:20 Allergies Allergy/AdvReac Type Severity Reaction Status Date / Time mold Allergy Itching, Verified 12/24/23 11:45 WATERY EYES pollen extracts Allergy Itching, Verified 12/24/23 11:45 WATERY EYES Home Medications Medication Instructions Recorded Confirmed Type duloxetine 60 mg capsule,delayed 60 mg PO BID 05/13/19 12/24/23 History release sprinkle ergocalciferol (vitamin D2) 1,250 50,000 unit PO WEEKLY 05/13/19 01/03/24 History mcg (50,000 unit) capsule (Vitamin D2) famotidine 20 mg tablet 20 mg PO BID PRN Acid Reflux 05/13/19 12/24/23 History hydroxyzine HCl 50 mg BYMOUTH TID PRN Anxiety 05/13/19 12/24/23 History buspirone 15 mg tablet 15 mg PO BID 04/07/22 12/24/23 History pregabalin 150 mg capsule 200 mg PO TID 04/07/22 12/24/23 History cilostazol 100 mg tablet 100 mg PO BID 05/26/23 12/24/23 History dulaglutide 1.5 mg/0.5 mL 1.5 mg subcut WEEKLY 05/26/23 01/03/24 History subcutaneous pen injector (Trulicity) hydrochlorothiazide 25 mg tablet 25 mg PO DAILY 05/26/23 12/24/23 History ibuprofen 400 mg tablet 400 mg PO Q6H PRN Pain 05/26/23 12/24/23 History metformin 500 mg tablet 500 mg PO BID 05/26/23 12/24/23 History rosuvastatin 5 mg tablet 5 mg PO DAILY 05/26/23 12/24/23 History potassium chloride 20 mEq 20 meq PO DAILY 12/24/23 12/24/23 History tablet,extended release Laboratory Tests 01/03/24 09:11 POC Capillary Glucose 98 mg/dl (65-105) Patient hx anesthesia problems: none Family hx anesthesia problems: none Results Review: All pre-operative results and documents have been reviewed as part of the pre-operative evaluation. [facility] Past Medical History Medical History Anxiety Back pain Depression Diabetes Diabetic neuropathy DM2 (diabetes mellitus, type 2) Endometriosis GERD (gastroesophageal reflux disease) Hip pain, left History of HPV infection HLD (hyperlipidemia) HTN (hypertension) Kidney stone Knee pain, left Numbness in both hands Ovarian cyst Bilateral Surgical History Surgical History History of cholecystectomy History of loop electrical excision procedure (LEEP) Family History Family History Mother Family history of kidney disease Family history of diabetes mellitus in first degree relative Sibling Family history of diabetes mellitus in first degree relative Patient's brother is in good health Other Cerebrovascular accident Family history of allergic disorder Family history of cardiovascular disease Hypertension Social History Social History Social History: The patient is single. She does not have a durable power criminal attorney. She does need to have to be a full code. She has no children. She works in the bakery at [employer] Smoking status: Never smoker Alcohol intake: former Alcohol use details: DOES NOT DRINK NOW Substance use: former Substance use type: marijuana Other substance usage details: LAST USE 2 YRS AGO Do You Feel Safe in your Home?: Yes Lack of Transportation: No Lack of Food: Sometimes True Current Housing: I Have Housing Concerned About Future Housing: No Difficulty Paying Gas/Electric Bills: No Difficulty Paying for Meds
--- NOTE | 2024-01-03 12:02 | WPDHPUPDATE1 ---
History and Physical Update Update Date/Time: 01/03/24 12:02 History and Physical has been reviewed, including an updated exam of the patient. There are NO changes in the patient's condition. Risks, benefits, and alternatives have been discussed and questions answered. Patient agrees to proceed with procedure.
[2024-01-03] MEDS: ACETAMINOPHEN ELIXIR 325 MG/10.15 ML UDC 1000 MG PO (12:13)
[2024-01-03] MEDS: ceFAZolin 2 GM/D5W 50 ML 2 GM/50 ML BAG IVPB (12:20)
[2024-01-03] MEDS: BUPivacaine HCL 0.5% 10 ML AMP 30 ML INFILTRATE (12:41)
[2024-01-03] MEDS: LIDO 1%/EPINEPHRINE 1:100,000 50 ML VIAL 30 ML INFILTRATE (12:43)
--- NOTE | 2024-01-03 13:40 | W.PM.PROC2 ---
Procedure Note - Detailed Date of Procedure 01/03/24 Pre-op Diagnosis Umbilical hernia Post-op Diagnosis Other (Reducible periumbilical incisional hernia) Procedure Performed Open periumbilical reducible incisional hernia repair (defect 2 cm) with Bard Ventralex ST mesh (6.4cm lower [place]). Surgeon Shaun Matos MD Anesthesia General Indications Patient is a 53-year-old female who previously had a laparoscopic cholecystectomy the port site in the periumbilical region. With the port site was located in the periumbilical region she has developed a Girard enlarging periumbilical reducible incisional hernia. Imaging shows only fatty tissue within the hernia sac which is likely omentum. She presents now for elective open periumbilical incisional hernia repair with mesh. Findings The defect was actually about 2 to 3 cm cephalad of the umbilicus. The defect measured 2 x 1.5 cm. Within the hernia sac was viable omentum which was easily reducible. This was repaired with a piece of Bard Ventralex ST mesh measuring 6.4cm in diameter and circular configuration. Description of Procedure After informed consent was obtained patient brought to the operating room she was placed supine position and general endotracheal anesthesia was administered. The abdomen is then prepped and draped usual sterile fashion. A time-out was then performed correctly identifying the patient as well as procedure to be performed. She was given perioperative IV antibiotics. I started by making a small transverse incision just above the umbilicus with a scalpel dissecting down through the dermis skin of the scalp. Once into the subcutaneous tissues I dissected down to the hernia sac which was from the surrounding subcutaneous tissue electrocautery. I then opened the hernia sac to identify viable omentum within the hernia sac. It was reducible. I then resected the hernia sac down to the fascial level and sent this hernia sac to pathology for examination. I then placed my finger through the defect which measured 2x1.5cm. I swept underneath the anterior abdominal wall and there were no adhesions of the bowel or omentum for several cm around the defect. I then chose to repair the hernia with placement of a piece of Bard Ventralex ST mesh measuring 6.4cm in diameter and circular configuration. With the omentum reduced I then placed the mesh through the defect into the abdomen and then pulled it up underneath the anterior abdominal wall flush with traction on the mesh straps. I then placed my finger into the pocket of the mesh to make sure that did not appear to be any incarcerated intra-abdominal contents between the mesh and the undersurface of the anterior abdominal wall. I then circumferentially fixated the mesh to the anterior abdominal wall placement of transfascial 0 Ethibond sutures to approximate the prosthetic surface of the mesh to the undersurface of the anterior abdominal wall. The barrier surface the mesh was placed in the intra-abdominal viscera. The mesh laid very nicely with centered on the defect. I then irrigated out the mesh and incision with sterile saline solution hemostasis was good. I then placed a pursestring suture in the superficial tissues just above the fascial level. The mesh was then covered with this generous layer of subcutaneous tissue. I then further closed subcutaneous tissue with interrupted layers with 2-0 Vicryl suture and 3-0 Vicryl sutures. The skin edges were then approximated utilizing a running subcuticular 4 Monocryl suture. The incision was then cleaned and then skin glue was used to dress the incision. Abdominal binder was placed as well. The patient tolerated the procedure well no complications. All sponges, needles, and instrument counts were correct at the end procedure. EBL was _10__cc. The patient was awakened and taken to recovery in stable and satisfactory condition. Implants Bard Ventralex ST mesh 6.4cm diameter lower [place]. Mesh was christian
[2024-01-03 13:54] LABS: Glucose Point of Care 120 mg/dl (65-105)
[2024-01-03] MEDS: fentaNYL CITRATE INJ (*CRX) 100 MCG/2 ML VIAL 25 MCG IV PUSH ×4 (14:19→14:50)
[2024-01-03] MEDS: oxyCODONE HCL (*CRX) 5 MG TAB IR PO (15:18)
== END 2024-01-03 16:24 | disposition home or self-care (01) ==
PROVIDERS: PCP Family Medicine; Visit Provider Surgery
PROC: (CPT 49591; principal; 2024-01-03 10:30)
DX: K43.2 Incisional hernia without obstruction or gangrene (principal); E11.40 Type 2 diabetes mellitus with diabetic neuropathy, unspecified; I10 Essential (primary) hypertension; E78.5 Hyperlipidemia, unspecified; K21.9 Gastro-esophageal reflux disease without esophagitis; F41.9 Anxiety disorder, unspecified; F32.A Depression, unspecified; Z79.85 Long-term (current) use of injectable non-insulin antidiabetic drugs; Z79.84 Long term (current) use of oral hypoglycemic drugs; E66.9 Obesity, unspecified; Z68.35 Body mass index [BMI] 35.0-35.9, adult
CPT/HCPCS: 49591; 82948; 88302; A9270; C1781; J0330; J0690; J1100; J1885; J2250; J2405; J2704; J3010; J7120

== ENCOUNTER 2024-08-17 02:56 | Day surgery (SDC) | payer BC, SELFPAY ==
[2024-08-09 15:04] VITALS: BMI 36.3
--- NOTE | 2024-08-09 15:20 | PC.NURSE ---
Spoke with PATIENT regarding medication CILOSTAZOL. PATIENT verbalizes understanding that the last dose is to be taken on 08/12/2024 and the Endoscopist will instruct them when to restart after the procedure.
--- OUTSIDE RECORDS SUMMARY | 2024-08-17 02:59 | XMS_ITS | Referral Summary ---
Author Organization [facility] Address [address] [place] [address] Care Team Providers Care Label Stitcher Name Role Phone Cassie Larson PA-C Primary Care Provider [phone]- [phone] Source Comments [facility],non-owned Affiliates and Associated Physician Practices is amultiple site organization consisting of ambulatory clinics and hospital sitesin [place], [place], [place] and [place]. This disclosure is being madepursuant to the Care Everywhere program and may not contain all information available regarding this patient. Last updated 18.[facility] Allergies No known active allergies Medications * Be aware that medications may not be up to date on this document. Alwaysverify current medications with the patient. Medication Sig Dispensed Refills Start Date End Date Status atorvastatin (LIPITOR) 10 MG tablet 02/16/2017 Active norethindrone-ethin yl estradiol (MICROGESTIN) 1.5-30 MG-MCG tablet 02/24/2017 Active QUEtiapine (SEROQUEL) 100 MG tablet 03/10/2017 Active hydrOXYzine pamoate (VISTARIL) 25 MG capsule 02/17/2017 Active gabapentin (NEURONTIN) 300 MG capsule 02/16/2017 Active citalopram (CELEXA) 40 MG tablet 03/04/2017 Active blood glucose (TRUE METRIX BLOOD GLUCOSE TEST) test strip 02/18/2017 Active meloxicam (MOBIC) 15 MG tablet Take 15 mg by mouth DAILY. 30 tablet 3 03/12/2017 Active lancets 02/18/2017 Active GNP ALCOHOL SWABS 70 % 01/20/2017 Active traZODone (DESYREL) 100 MG tablet 02/17/2017 Active venlafaxine XR 24hr (EFFEXOR XR) 150 MG capsule 02/17/2017 Active metFORMIN (GLUCOPHAGE) 500 MG tablet 02/16/2017 Active furosemide (LASIX) 40 MG tablet 02/22/2017 Active lisinopril (PRINIVIL; ZESTRIL) 10 MG tablet 02/16/2017 Active diclofenac sodium EC (VOLTAREN) 75 MG tablet diclofenac sodium 75 mg tablet,delayed release Active DULoxetine (CYMBALTA) 60 MG capsule duloxetine 60 mg capsule,delayed release Active Social History Tobacco Use Types Packs/Day Years Used Date Smoking Tobacco: Never Smokeless Tobacco: Never Sex and Gender Information Value Date Recorded Sex Assigned at Not on file Gender Identity Not on file Sexual Orientation Not on file Last Filed Vital Signs Vital Sign Reading Time Taken Comments Blood Pressure - - Pulse - - Temperature - - Respiratory Rate - - Oxygen Saturation - - Inhaled Oxygen Concentration - - Weight 116.6 kg (257 lb) 2018 1:32 PM CDT Height 170.2 cm (5' 7 ) 2018 1:32 PM CDT Body Mass Index 40.25 2018 1:32 PM CDT Plan of Treatment Not on file Care Teams Label Stitcher Relationship Specialty Start Date End Date Cassie Larson PA-C PCP - General 02/16/17
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
--- OUTSIDE RECORDS SUMMARY | 2024-08-17 02:59 | XMS_ITS | Clinical Summary ---
Author Organization [facility] Address [address] [place] [address] Care Team Providers Care Strategy Consultant Name Role Phone Cassie Larson PA-C Primary Care Provider [phone] Source Comments [facility],non-owned Affiliates and Associated Physician Practices is amultiple site organization consisting of ambulatory clinics and hospital sitesin [place], [place], [place] and [place]. This disclosure is being madepursuant to the Care Everywhere program and may not contain all information available regarding this patient. Last updated 18.[facility] Allergies No known active allergies Medications * [...] 2018 1:32 PM CDT Plan of Treatment Health Maintenance Due Date Last Done Comments COLOGUARD (AGES 45-75) - COL ON CA SCREENING 1972 COLON MONITORING 1972 COLONOSCOPY - COLON CA SCREENING 1972 CT COLONOGRAPHY - COLON CA SCREENING 1972 Colorectal Cancer Screening 1972 FIT - COLON CA SCREENING 1972 FLEX SIG - COLON CA SCREENING 1972 MAMMOGRAM 1972 PAP SMEAR 1972 HIV SCREENING 11/12/1987 HEPATITIS C SCREENING 11/07/1990 DTAP/TDAP/TD VACCINES (1 - Tdap) 11/12/1991 HEPATITIS B VACCINE (1 of 3 - 19+ 3-dose series) 11/12/1991 SCREENING FOR DIABETES 2018 PNEUMOCOCCAL VACCINE 50+ (1 of 1 - PCV) 2022 ZOSTER VACCINE (1 of 2) 2022 COVID-19 VACCINE (1 - 2023-2 5 season) 2024 INFLUENZA VACCINE (#1) 2024 04/22/2017 DEPRESSION SCREENING 06/21/2024 HIB VACCINE Aged Out No longer eligi ble based on patient's age to complete this topic HPV VACCINE Aged Out No longer eligi ble based on patient's age to complete this topic MENINGOCOCCAL (Group B) VACCINE Aged Out No longer eligible based on patient's age to complete this topic MENINGOCOCCAL VACCINE Aged Out No ivette luz eligible based on patient's age to complete this topic PNEUMOCOCCAL VACCINE Aged Out No long er eligible based on patient's age to complete this topic Care Teams Strategy Consultant Relationship Specialty Start Date End Date Cassie Larson PA-C PCP - General 02/16/17
--- OUTSIDE RECORDS SUMMARY | 2024-08-17 02:59 | XMS_ITS | Patient Health Summary ---
Author Organization [facility] Address [address] [place] [address] Care Team Providers Care Outside Sales Representative Name Role Phone Cassie Larson PA-C Primary Care Provider [phone]- [phone] Note from [facility],non-owned Affiliates and Associated Physician Practices is amultiple site organization consisting of ambulatory clinics and hospital sitesin [place], [place], [place] and [place]. This disclosure is being madepursuant to the Care Everywhere program and may not contain all information available regarding this patient. Last updated 18.[facility] [employer] Allergies No known active allergies Medications * Be aware that medications may not be up to date on this document. Alwaysverify current medications with the patient. * atorvastatin (LIPITOR) 10 MG tablet(Started 02/16/2017) * norethindrone-ethinyl estradiol (MICROGESTIN) 1.5-30 MG-MCG tablet(Started 02/24/2017) * QUEtiapine (SEROQUEL) 100 MG tablet(Started 03/10/2017) * hydrOXYzine pamoate (VISTARIL) 25 MG capsule(Started 02/17/2017) * gabapentin (NEURONTIN) 300 MG capsule(Started 02/16/2017) * citalopram (CELEXA) 40 MG tablet(Started 03/04/2017) * blood glucose (TRUE METRIX BLOOD GLUCOSE TEST) test strip(Started 02/18/2017) * meloxicam (MOBIC) 15 MG tablet(Started 03/12/2017) Take 15 mg by mouth DAILY. 3 refills left * lancets(Started 02/18/2017) * GNP ALCOHOL SWABS 70 %(Started 01/20/2017) * traZODone (DESYREL) 100 MG tablet(Started 02/17/2017) * venlafaxine XR 24hr (EFFEXOR XR) 150 MG capsule(Started 02/17/2017) * metFORMIN (GLUCOPHAGE) 500 MG tablet(Started 02/16/2017) * furosemide (LASIX) 40 MG tablet(Started 02/22/2017) * lisinopril (PRINIVIL; ZESTRIL) 10 MG tablet(Started 02/16/2017) * diclofenac sodium EC (VOLTAREN) 75 MG tablet diclofenac sodium 75 mg tablet,delayed release * DULoxetine (CYMBALTA) 60 MG capsule duloxetine 60 mg capsule,delayed release Social History Tobacco Use Types Packs/Day Years [...] Mass Index 40.25 2018 1:32 PM CDT Procedures * XR PELVIS W LEFT HIP 2VW(Performed 2018) Performed for Arthralgia of hip, unspecified laterality * XR HIP LEFT 2VW OR MORE(Performed 03/12/2017) * XR PELVIS W LEFT HIP 2VW(Performed 03/12/2017) Results * XR PELVIS W LEFT HIP 2VW (2018 1:17 PM CDT) Only the most recent of2 resultswithin the time period is included. Anatomical Region Laterality Modality Radiographic Clarita ging 2018 1:26 PM CDT Impressions 2018 1:28 PM CDT IMPRESSION: Normal left hip. This report was electronically signed by HARMAN CAMARGO MD on 2018 1:28 PM . Narrative 2018 1:28 PM CDT Exam: XR PELVIS W LEFT HIP 2VW History: left hip pain Comparison: 03/12/2017. Findings: No acute left hip fracture or dislocation is present. The joint space is normal. No erosions are seen. The pelvic radiograph is normal. Procedure Note Harman Camargo MD - 2018 Exam: XR PELVIS W LEFT HIP 2VW History: left hip pain Comparison: 03/12/2017. Findings: No acute left hip fracture or dislocation is present. The joint space is normal. No erosions are seen. The pelvic radiograph is normal. IMPRESSION: Normal left hip. This report was electronically signed by HARMAN CAMARGO MD on2018 1:28 PM . Mirella Meneses MD DIAGNOSTIC IMAGING O RDERABLES * XR HIP LEFT 2VW OR MORE (03/12/2017 12:59 PM CDT) Anatomical Region Laterality Modality Pelvis, Lower Extremity Other Impressions 03/12/2017 2:16 PM CDT IMPRESSION: Normal. This report was electronically signed by HARMAN CAMARGO MD on 03/12/2017 2:16 PM . Narrative 03/12/2017 2:16 PM CDT Left hip 3 views including erect weightbearing, supine 45 degree, and 90 degree Lopes 03/12/2017 at 12:51 PM HISTORY: Pain COMPARISON: Left hip radiographs dated 03/12/2017 at 11:45 AM FINDINGS: No fracture or dislocation is present. The joint space is normal. No erosions are seen. The femoral head is normal in contour. Procedure Note Harman Camargo MD - 09/17/2017 Left hip 3 views including erect weightbearing, supine 45 degree, and 90degree Lopes 03/12/2017 at 12:51 PM HISTORY: Pain COMPARISON: Left hip radiographs dated 03/12/2017 at 11:45 AM FINDINGS: No fracture or dislocation is present. The joint space isnormal. No erosions are seen. The femoral head is normal in contour. IMPRESSION IMPRESSION: Normal. This report was electronically signed by HARMAN CAMARGO MD on 03/12/20172:16 PM . Lata Espinoza PA-C DIAGNOSTIC IMAG ING ORDERABLES Care Teams Outside Sales Representative Relationship Specialty Start Date End Date Cassie Larson PA-C [facility] - General 02/16/17
--- OUTSIDE RECORDS SUMMARY | 2024-08-17 02:59 | XMS_ITS | Data Portability ---
[facility] Address [address] [place] [address] Care Team Providers Care Restaurant Hostess Name Role Phone ENEIDA MOE Head Of Global Strategic Partnerships [phone] MARYCHUY BHATT Orthopedic Surgeon CARLI CHAUDHRY Psychiatrist ANA CRISTINA PEPPER Primary Care Provider Assessment Encounter Date Assessment Date Assessment LastModified by Organization Details LastModified Time 01/03/2020 01/03/2020 LUQ pain, nausea, discomfort, present for 3 weeks. pt has GB out, no periods any more, and no change in symptoms with urination. Slight improvement with defecation. [email or web address] Not available 01/10/2020 23:01:22 07/05/2020 07/05/2020 generalized arthritis, worst in the feet. [email or web address] Not available 07/05/2020 12:33:10 Plan of Treatment Reminders Order Date Submit Date Provider Last Modified By Organization Details Last Modified Time Details Appointments None recorded. Lab HbA1c (hemoglobi n A1c), blood 2021 022 [facility], [address], [place], [address], 08:21:37 lipid panel, serum 2021 022 [facility], [address], [place], [address], 08:21:37 CBC w/ auto diff 2020 021 [facility], [address], [place], [address], 1 08:25:08 CMP, serum or plasma 2020 [facility], [address], [place], [address], 1 08:25:09 lipid panel, serum 2020 021 [facility], [address], [place], [address], 1 08:25:11 TSH + free T4, serum 2020 [facility], [address], [place], [address], 1 08:25:07 HbA1c (hemoglobi n A1c), blood 2020 021 [facility], [address], [place], [address], 1 08:25:12 inflammati on panel, serum or plasma 2020 021 [facility], [address], [place], [address], 1 12:41:19 uric acid, serum or plasma 2020 021 [facility], [address], [place], [address], 1 12:41:19 CBC 2019 020 ED [facility], [address], [address], [place], [address], 0 14:11:12 CMP, serum or plasma 2019 020 ED [facility], [address] [facility], [address], [place], [address], 0 14:11:11 amylase + lipase, serum 2019 020 [facility], [address] [facility], [address], [place], [address], 0 14:11:13 ca 125, serum 2019 020 [facility], [address] [facility], [address], [place], [address], 0 14:11:[address] referral 2020 021 [email or web address] Petey Diaz MD, [address] [facility], [facility] [address], [place], [address], 1 15:32:32 roll table operator referral 2020 021 [email or web address] Not available 1 10:50:01 Procedures None recorded. Surgeries None recorded. Imaging US, abdomen, complete 2019 020 [facility] ([facility] [address] [place], [address], 0 11:22:34 Medication Orders metoprolol succinate ER 25 mg tablet,ext ended release 24 hr 2021 022 [facility] [id number] In [facility], [address] [place] [address], [place], [address], 2 14:51:19 duloxetine 60 mg capsule,de layed release 2020 021 [facility] [id number] In [facility], [address] [facility], [place], [address], 1 12:00:13 buspirone 15 mg tablet 2020 021 [email or web address] [id number] In [facility], [address], [place], [address], 16:05:48 tramadol 50 mg tablet 2020 021 [facility] [address], [address] [place], [address], 15:15:05 hydroxyzin e pamoate 50 mg capsule 2020 021 [facility] [address], [address] [place], [address], 12:41:24 Patient TargetsNo targets recorded. 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 Referring Physician: Rula Goff, Family Medicine, Encounter Date: 07/05/2020 Psychiatrist Referral for Mi xed anxiety and depressive disorder Referring Physician: Ana Cristina Pepper Family [facility], Encounter Date: 05/01/2021 Results Created Date Observation Date Name Description Value Unit Range Abnormal Flag Note LastModifiedBy Organization Detail LastModifiedTime 01/08/2001/09/2020 CMP, serum or plasm a glucose 122 mg/dL 65-99 above high normal Not Available [facility] ([facility]) [address] [facility], [place], [address], 01/09/2020 14:11:11 01/08/2001/09/2020 CMP, serum or plasm a BUN 13 mg/dL 6-24 Not Available [facility] ([facility]) [address] [facility], [place], [address], 01/09/2020 14:11:11 01/08/2007 0101/09/2020 CMP, serum or plasm a creatinine 0.76 mg/dL 0.57-1 .00 Not Available [facility] ([facility]) [address] [place], [address], 01/09/2020 14:11:11 01/08/20 20 01/09/2020 CMP, serum or plasm a eGFR if nonafricn AM 94 mL/mi n/1.7 3 >59 Not Available [facility] ([facility]) [address] [place], [address], 01/09/2020 14:11:11 01/08/20 20 01/09/2020 CMP, serum or plasm a eGFR if africn AM 108 mL/mi n/1.7 3 >59 Not Available [facility] ([facility]) [address] [place], [address], 01/09/2020 14:11:11 01/08/20 20 01/09/2020 CMP, serum or plasm a BUN/creatini ne ratio 17 9-23 Not Available [facility] ([facility]) [address] [place], [address], 01/09/2020 14:11:11 01/08/20 20 01/09/2020 CMP, serum or plasm a sodium 141 mmol/ L 134-14 4 Not Available [facility] ([facility]) [address] [place], [address], 01/09/2020 14:11:11 01/08/20 20 01/09/2020 CMP, serum or plasm a potassium 4.4 mmol/ L 3.5-5. 2 Not Available [facility] ([facility]) [address] [place], [address], 01/09/2020 14:11:11 01/08/20 20 01/09/2020 CMP, serum or plasm a chloride 103 mmol/ L 96-106 Not Available [facility] ([facility]) [address] [place], [address], 01/09/2020 14:11:11 01/08/20 20 01/09/2020 CMP, serum or plasm a carbon dioxide, total 24 mmol/ L 20 Not Available [facility] ([facility]) [address] [facility], [place], [address], 01/09/2020 14:11:11 01/08/20 20 01/09/2020 CMP, serum or plasm a calcium 9.0 mg/dL 8.7-10 .2 Not Available [facility] ([facility]) [address] [place], [address], 01/09/2020 14:11:11 01/08/20 20 01/09/2020 CMP, serum or plasm a protein, total 7.1 g/dL 6.0-8. 5 Not Available [facility] ([facility]) [address] [place], [address], 01/09/2020 14:11:11 01/08/20 20 01/09/2020 CMP, serum or plasm a albumin 4.1 g/dL 3.8-4. 8 Not Available [facility] ([facility]) [address] [facility], [place], [address], 01/09/2020 14:11:11 01/08/20 20 01/09/2020 CMP, serum or plasm a globulin, total 3.0 g/dL 1.5-4. 5 Not Available [facility] ([facility]) [address] [place], [address], 01/09/2020 14:11:11 01/08/20 20 01/09/2020 CMP, serum or plasm a A/G ratio 1.4 1.2-2. 2 Not Available [facility] ([facility]) [address] [place], [address], 01/09/2020 14:11:11 01/08/20 20 01/09/2020 CMP, serum or plasm a bilirubin, total 0.2 mg/dL 0.0-1. 2 Not Available [facility] ([facility]) [address] [facility] [place], [address], 01/09/2020 14:11:11 01/08/20 20 01/09/2020 CMP, serum or plasm a alkaline phosphatase 127 IU/L 39-117 above high normal Not Available [facility] ([facility]) [address] [facility] [place], [address], 01/09/2020 14:11:11 01/08/20 20 01/09/2020 CMP, serum or plasm a AST (SGOT) 26 IU/L 0-40 Not Available [facility] ([facility]) [address] [facility] [place], [address], 01/09/2020 14:11:11 01/08/20 20 01/09/2020 CMP, serum or plasm a ALT (SGPT) 43 IU/L 0-32 above high normal Not Available [facility] ([facility]) [address] [facility] [place], [address], 01/09/2020 14:11:11 01/08/20 20 01/09/2020 CBC WBC 11.3 x10e3 /uL 3.4-10 .8 above high normal Not Available [facility] ([facility]) [address] [facility] [place], [address], 01/09/2020 14:11:12 01/08/20 20 01/09/2020 CBC RBC 4.48 x10e6 /uL 3.77-5 .28 Not Available [facility] ([facility]) [address] [facility] [place], [address], 01/09/2020 14:11:12 01/08/20 20 01/09/2020 CBC hemoglobin 12.3 g/dL 11.1-1 5.9 Not Available [facility] ([facility]) [address] [facility] [place], [address], 01/09/2020 14:11:12 01/08/20 20 01/09/2020 CBC hematocrit 38.4 % 34.0-4 6.6 Not Available [facility] ([facility]) [address] [facility], [place], [address], 01/09/2020 14:11:12 01/08/20 20 01/09/2020 CBC MCV 86 fL 79-97 Not Available [facility] ([facility]) [address] [facility], [place], [address], 01/09/2020 14:11:12 01/08/20 20 01/09/2020 CBC MCH 27.5 pg 26.6-3 3.0 Not Available [facility] ([facility]) [address] [facility], [place], [address], 01/09/2020 14:11:12 01/08/20 20 01/09/2020 CBC MCHC 32.0 g/dL 31.5-3 5.7 Not Available [facility] ([facility]) [address] [facility], [place], [address], 01/09/2020 14:11:12 01/08/20 20 01/09/2020 CBC RDW 15.0 % 11.7-1 5.4 Not Available [facility] ([facility]) [address] [facility], [place], [address], 01/09/2020 14:11:12 01/08/20 20 01/09/2020 CBC platelets 336 x10e3 /uL 150-45 0 Not Available [facility] ([facility]) [address] [place], [address], 01/09/2020 14:11:12 01/08/20 20 01/09/2020 CBC NRBC ADOLESCENT SPECIALIST Not Available [facility] ([facility]) [address] [place], [address], 01/09/2020 14:11:12 01/08/20 20 01/09/2020 amyla se + lipas e, serum amylase 73 U/L 31-110 Not Available [facility] ([facility]) [address] [facility], [place], [address], 01/09/2020 14:11:13 01/08/20 20 01/09/2020 amyla se + lipas e, serum lipase 41 U/L 14-72 Not Available [facility] ([facility]) [address] [facility], [place], [address], 01/09/2020 14:11:13 01/08/20 20 01/09/2020 ca 125, serum cancer antigen (Ca) 125 10.7 U/mL 0.0-38 .1 Mariano Diagn ostic s Elect mariano milum inesc ence Immun oassa y (ECLI A) Value s obtai nicolasa with diffe rent assay metho ds or kits canno t be used [facility] . Resul ts canno t be inter prete d as absol [place] evide nce of the prese nce or [facility] o[facility] se. Not Available [facility] ([facility]) [address] [facility], [place], [address], 01/09/2020 14:11:13 01/15/20 20 01/16/2020 amyla se + lipas e, serum amylase 60 U/L 31-110 Not Available [facility] ([facility]) [address] [place], [address], 01/16/2020 09:13:47 01/15/20 20 01/16/2020 amyla se + lipas e, serum lipase 28 U/L 14-72 Not Available [facility] ([facility]) [address] [facility], [place], [address], 01/16/2020 09:13:47 01/15/20 20 01/16/2020 hepat itis C Ab, signa l-to- cutof f, serum or plasm a hep C virus Ab <0.1 s/co_ ratio 0.0-0. 9 Negat heriberto: < 0.8 Indet ermin ate: 0.8 - 0.9 Posit heriberto: > 0.9 The CDC recom mends that a posit heriberto HCV antib allyssa resul t be follo wed up with a HCV Nucle ic Acid Ampli ficat ion test (5507 [id number]). Not Available [facility] ([facility]) [address] [place], [address], 01/16/2020 09:13:48 01/15/2001/16/2020 Hepat itis B virus core Ab, qual immun oassa y, serum or plasm a hep B core Ab, tot NEGATI VE negati ve Not Available [facility] ([facility]) [address] [place], [address], 01/16/2020 09:13:49 05/07/2005/08/2021 TSH+F REE T4 TSH 2.980 uIU/m L 0.450- 4.500 Not Available [facility] ([facility]) [address] [place], [address], 05/08/2021 08:25:07 05/07/2005/08/2021 TSH+F REE T4 T4,free(dire ct) 0.91 NG/dL 0.82-1 .77 Not Available [facility] ([facility]) [address] [place], [address], 05/08/2021 08:25:07 05/07/2005/08/2021 CBC WITH DIFFE RENTI AL/PL ATELE T WBC 13.1 x10e3 /uL 3.4-10 .8 above high normal Not Available [facility] ([facility]) [address] [place], [address], 05/08/2021 08:25:08 05/07/20 21 05/08/2021 CBC WITH DIFFE RENTI AL/PL ATELE T RBC 5.06 x10e6 /uL 3.77-5 .28 Not Available [facility] ([facility]) [address] [facility], [address], 05/08/2021 08:25:08 05/07/20 21 05/08/2021 CBC WITH DIFFE RENTI AL/PL ATELE T hemoglobin 14.1 g/dL 11.1-1 5.9 Not Available [facility] ([facility]) [address] [place], [address], 05/08/2021 08:25:08 05/07/20 21 05/08/2021 CBC WITH DIFFE RENTI AL/PL ATELE T hematocrit 42.4 % 34.0-4 6.6 Not Available [facility] ([facility]) [address] [place], [address], 05/08/2021 08:25:08 05/07/20 21 05/08/2021 CBC WITH DIFFE RENTI AL/PL ATELE T MCV 84 fL 79-97 Not Available [facility] ([facility]) [address] [place], [address], 05/08/2021 08:25:08 05/07/20 21 05/08/2021 CBC WITH DIFFE RENTI AL/PL ATELE T MCH 27.9 pg 26.6-3 3.0 Not Available [facility] ([facility]) [address] [place], [address], 05/08/2021 08:25:08 05/07/20 21 05/08/2021 CBC WITH DIFFE RENTI AL/PL ATELE T MCHC 33.3 g/dL 31.5-3 5.7 Not Available [facility] ([facility]) [address] [place], [address], 05/08/2021 08:25:08 05/07/20 21 05/08/2021 CBC WITH DIFFE RENTI AL/PL ATELE T RDW 14.2 % 11.7-1 5.4 Not Available [facility] ([facility]) [address] [place], [address], 05/08/2021 08:25:08 05/07/20 21 05/08/2021 CBC WITH DIFFE RENTI AL/PL ATELE T platelets 335 x10e3 /uL 150-45 0 Not Available [facility] ([facility]) [address] [facility], [place], [address], 05/08/2021 08:25:08 05/07/20 21 05/08/2021 CBC WITH DIFFE RENTI AL/PL ATELE T neutrophils 56 % not estab. Not Available [facility] ([facility]) [address] [facility], [place], [address], 05/08/2021 08:25:08 05/07/20 21 05/08/2021 CBC WITH DIFFE RENTI AL/PL ATELE T lymphs 35 % not estab. Not Available [facility] ([facility]) [address] [facility], [place], [address], 05/08/2021 08:25:08 05/07/20 21 05/08/2021 CBC WITH DIFFE RENTI AL/PL ATELE T monocytes 5 % not estab. Not Available [facility] ([facility]) [address] [facility], [place], [address], 05/08/2021 08:25:08 05/07/20 21 05/08/2021 CBC WITH DIFFE RENTI AL/PL ATELE T eos 3 % not estab. Not Available [facility] ([facility]) [address] [facility], [place], [address], 05/08/2021 08:25:08 05/07/20 21 05/08/2021 CBC WITH DIFFE RENTI AL/PL ATELE T basos 1 % not estab. Not Available [facility] ([facility]) [address] [facility], [place], [address], 05/08/2021 08:25:08 05/07/20 21 05/08/2021 CBC WITH DIFFE RENTI AL/PL ATELE T immature cells ADOLESCENT SPECIALIST Not Available [facility] ([facility]) [address] [place], [address], 05/08/2021 08:25:08 05/07/20 21 05/08/2021 CBC WITH DIFFE RENTI AL/PL ATELE T neutrophils (absolute) 7.2 x10e3 /uL 1.4-7. 0 above high normal Not Available [facility] ([facility]) [address] [place], [address], 05/08/2021 08:25:08 05/07/2005/08/2021 CBC WITH DIFFE RENTI AL/PL ATELE T lymphs (absolute) 4.6 x10e3 /uL 0.7-3. 1 above high normal Not Available [facility] ([facility]) [address] [place], [address], 05/08/2021 08:25:08 05/07/20 21 05/08/2021 CBC WITH DIFFE RENTI AL/PL ATELE T monocytes(ab solute) 0.7 x10e3 /uL 0.1-0. 9 Not Available [facility] ([facility]) [address] [place], [address], 05/08/2021 08:25:08 05/07/20 21 05/08/2021 CBC WITH DIFFE RENTI AL/PL ATELE T eos (absolute) 0.4 x10e3 /uL 0.0-0. 4 Not Available [facility] ([facility]) [address] [place], [address], 05/08/2021 08:25:08 05/07/20 21 05/08/2021 CBC WITH DIFFE RENTI AL/PL ATELE T baso (absolute) 0.2 x10e3 /uL 0.0-0. 2 Not Available [facility] ([facility]) [address] [place], [address], 05/08/2021 08:25:08 05/07/20 21 05/08/2021 CBC WITH DIFFE RENTI AL/PL ATELE T immature granulocytes 0 % not estab. Not Available [facility] ([facility]) [address] [facility], [place], [address], 05/08/2021 08:25:08 05/07/20 21 05/08/2021 CBC WITH DIFFE RENTI AL/PL ATELE T immature grans (abs) 0.0 x10e3 /uL 0.0-0. 1 Not Available [facility] ([facility]) [address] [facility], [place], [address], 05/08/2021 08:25:08 05/07/20 21 05/08/2021 CBC WITH DIFFE RENTI AL/PL ATELE T NRBC ADOLESCENT SPECIALIST Not Available [facility] ([facility]) [address] [facility], [place], [address], 05/08/2021 08:25:08 05/07/20 21 05/08/2021 CBC WITH DIFFE RENTI AL/PL ATELE T hematology comments: ADOLESCENT SPECIALIST Not Available [facility] ([facility]) [address] [facility], [place], [address], 05/08/2021 08:25:08 05/07/20 21 05/08/2021 COMP. METAB OLIC PANEL (14) glucose 97 mg/dL 65-99 Not Available [facility] ([facility]) [address] [facility], [place], [address], 05/08/2021 08:25:09 05/07/20 21 05/08/2021 COMP. METAB OLIC PANEL (14) BUN 18 mg/dL 6-24 Not Available [facility] ([facility]) [address] [place], [address], 05/08/2021 08:25:09 05/07/20 21 05/08/2021 COMP. METAB OLIC PANEL (14) creatinine 1.20 mg/dL 0.57-1 .00 above high normal Not Available [facility] ([facility]) [address] [facility], [place], [address], 05/08/2021 08:25:09 05/07/20 21 05/08/2021 COMP. METAB OLIC PANEL (14) eGFR if nonafricn AM 54 mL/mi n/1.7 3 >59 below low normal Not Available [facility] ([facility]) [address] [facility], [place], [address], 05/08/2021 08:25:09 05/07/20 21 05/08/2021 COMP. METAB OLIC PANEL (14) eGFR if africn AM 62 mL/mi n/1.7 3 >59 In accor dance with recom menda tions from the NKF-A SN Task force , [facility] is in the proce ss of updat ing its eGFR calcu latio n to the 2020 CKD-E PI creat inine equat ion that estim ates kidne y funct ion witho ut a race varia ble. Not Available [facility] ([facility]) [address] [facility], [place], [address], 05/08/2021 08:25:09 05/07/20 21 05/08/2021 COMP. METAB OLIC PANEL (14) BUN/creatini ne ratio 15 9-23 Not Available [facility] ([facility]) [address] [place], [address], 05/08/2021 08:25:09 05/07/20 21 05/08/2021 COMP. METAB OLIC PANEL (14) sodium 139 mmol/ L 134-14 4 Not Available [facility] ([facility]) [address] [place], [address], 05/08/2021 08:25:09 05/07/20 21 05/08/2021 COMP. METAB OLIC PANEL (14) potassium 4.3 mmol/ L 3.5-5. 2 Not Available [facility] ([facility]) [address] [place], [address], 05/08/2021 08:25:09 05/07/20 21 05/08/2021 COMP. METAB OLIC PANEL (14) chloride 100 mmol/ L 96-106 Not Available [facility] ([facility]) [address] [place], [address], 05/08/2021 08:25:09 05/07/20 21 05/08/2021 COMP. METAB OLIC PANEL (14) carbon dioxide, total 23 mmol/ L 20-29 Not Available [facility] ([facility]) [address] [place], [address], 05/08/2021 08:25:09 05/07/20 21 05/08/2021 COMP. METAB OLIC PANEL (14) calcium 9.4 mg/dL 8.7-10 .2 Not Available [facility] ([facility]) [address] [place], [address], 05/08/2021 08:25:09 05/07/20 21 05/08/2021 COMP. METAB OLIC PANEL (14) protein, total 7.4 g/dL 6.0-8. 5 Not Available [facility] ([facility] [address] [place], [address], 05/08/2021 08:25:09 05/07/20 21 05/08/2021 COMP. METAB OLIC PANEL (14) albumin 4.3 g/dL 3.8-4. 8 Not Available [facility] ([facility]) [address] [facility] [place], [address], 05/08/2021 08:25:09 05/07/20 21 05/08/2021 COMP. METAB OLIC PANEL (14) globulin, total 3.1 g/dL 1.5-4. 5 Not Available [facility] ([facility]) [address] [facility], [place], [address], 05/08/2021 08:25:09 05/07/20 21 05/08/2021 COMP. METAB OLIC PANEL (14) A/G ratio 1.4 1.2-2. 2 Not Available [facility] ([facility]) [address] [facility], [place], [address], 05/08/2021 08:25:09 05/07/20 21 05/08/2021 COMP. METAB OLIC PANEL (14) bilirubin, total <0.2 mg/dL 0.0-1. 2 Not Available [facility] ([facility]) [address] [facility] [place], [address], 05/08/2021 08:25:09 05/07/20 21 05/08/2021 COMP. METAB OLIC PANEL (14) alkaline phosphatase 126 IU/L 44-121 above high normal Ple ase note refer ence inter romie gustafson e Not Available [facility] ([facility]) [address] [facility], [place], [address], 05/08/2021 08:25:09 05/07/20 21 05/08/2021 COMP. METAB OLIC PANEL (14) AST (SGOT) 29 IU/L 0-40 Not Available [facility] ([facility]) [address] [facility] [place], [address], 05/08/2021 08:25:09 05/07/20 21 05/08/2021 COMP. METAB OLIC PANEL (14) ALT (SGPT) 37 IU/L 0-32 above high normal Not Available [facility] ([facility]) [address] [facility] [place], [address], 05/08/2021 08:25:09 05/07/20 21 05/08/2021 LIPID PANEL W/ CHOL/ HDL RATIO cholesterol, total 225 mg/dL 100-19 9 above high normal Not Available [facility] ([facility]) [address] [facility], [place], [address], 05/08/2021 08:25:11 05/07/20 21 05/08/2021 LIPID PANEL W/ CHOL/ HDL RATIO triglyceride s 356 mg/dL 0-149 above high normal Not Available [facility] ([facility]) [address] [place], [address], 05/08/2021 08:25:11 05/07/20 21 05/08/2021 LIPID PANEL W/ CHOL/ HDL RATIO HDL cholesterol 43 mg/dL >39 Not Available [facility] ([facility]) [address] [place], [address], 05/08/2021 08:25:11 05/07/20 21 05/08/2021 LIPID PANEL W/ CHOL/ HDL RATIO VLDL cholesterol michelle 62 mg/dL 5-40 above high normal Not Available [facility] ([facility]) [address] [place], [address], 05/08/2021 08:25:11 05/07/20 21 05/08/2021 LIPID PANEL W/ CHOL/ HDL RATIO LDL chol calc ([facility]) 120 mg/dL 0-99 above high normal Not Available [facility] ([facility]) [address] [place], [address], 05/08/2021 08:25:11 05/07/20 21 05/08/2021 LIPID PANEL W/ CHOL/ HDL RATIO comment: ADOLESCENT SPECIALIST Not Available [facility] ([facility]) [address] [place], [address], 05/08/2021 08:25:11 05/07/20 21 05/08/2021 LIPID PANEL W/ CHOL/ HDL RATIO T. chol/HDL ratio 5.2 ratio 0.0-4. 4 above high normal T. Chol/ HDL Ratio Men Women 1/2 Avg.R isk 3.4 3.3 Avg.R isk 5.0 4.4 2X Avg.R isk 9.6 7.1 3X Avg.R isk 23.4 11.0 Not Available [facility] ([facility]) [address] [place], [address], 05/08/2021 08:25:11 05/07/20 21 05/08/2021 HEMOG LOBIN A1C hemoglobin A1C 6.6 % 4.8-5. 6 above high normal Predi abete s: 5.7 - 6.4 Diabe twan: >6.4 Glyce talia contr ol for adult s with diabe twan: <7.0 Not Available [facility] ([facility]) [address] [place], [address], 05/08/2021 08:25:12 10/02/19 22 10/02/2021 LIPID PANEL W/ CHOL/ HDL RATIO cholesterol, total 211 mg/dL 100-19 9 above high normal Not Available [facility] ([facility]) [address] [place], [address], 10/02/2021 08:21:36 10/02/19 22 10/02/2021 LIPID PANEL W/ CHOL/ HDL RATIO triglyceride s 207 mg/dL 0-149 above high normal Not Available [facility] ([facility]) [address] [place], [address], 10/02/2021 08:21:36 10/02/19 22 10/02/2021 LIPID PANEL W/ CHOL/ HDL RATIO HDL cholesterol 41 mg/dL >39 Not Available [facility] ([facility] [address] [place], [address], 10/02/2021 08:21:36 10/02/19 22 10/02/2021 LIPID PANEL W/ CHOL/ HDL RATIO VLDL cholesterol michelle 37 mg/dL 5-40 Not Available [facility] ([facility]) [address] [place], [address], 10/02/2021 08:21:36 10/02/19 22 10/02/2021 LIPID PANEL W/ CHOL/ HDL RATIO LDL chol calc ([facility]) 133 mg/dL 0-99 above high normal Not Available [facility] ([facility]) [address] [facility], [place], [address], 10/02/2021 08:21:36 10/02/19 22 10/02/2021 LIPID PANEL W/ CHOL/ HDL RATIO comment: ADOLESCENT SPECIALIST Not Available [facility] ([facility]) [address] [facility], [place], [address], 10/02/2021 08:21:36 10/02/19 22 10/02/2021 LIPID PANEL W/ CHOL/ HDL RATIO T. chol/HDL ratio 5.1 ratio 0.0-4. 4 above high normal T. Chol/ HDL Ratio Men Women 1/2 Avg.R isk 3.4 3.3 Avg.R isk 5.0 4.4 2X Avg.R isk 9.6 7.1 3X Avg.R isk 23.4 11.0 Not Available [facility] ([facility]) [address] [facility], [place], [address], 10/02/2021 08:21:36 10/02/19 22 10/02/2021 HEMOG LOBIN A1C hemoglobin A1C 6.8 % 4.8-5. 6 above high normal Predi abete s: 5.7 - 6.4 Diabe twan: >6.4 Glyce talia contr ol for adult s with diabe twan: <7.0 Not Available [facility] ([facility]) [address] [facility], [place], [address], 10/02/2021 08:21:37 01/18/20 20 01/18/2020 US, abdom en, compl ete No observ ation record ed. [address] (Imaging) [address], [place], [address], 07/13/2020 22:43:55 09/20/19 22 09/19/2021 MRI, lumba r spine , w/o contr ast No observ ation record ed. [address], [place], [address], 09/22/2021 09:00:38 09/20/19 22 09/19/2021 MRI, lumba r spine , w/o contr ast No observ ation record ed. [place] [id number] [facility] [address], [place], [address], 09/22/2021 09:01:03 11/15/19 22 11/14/2021 MRI, thora cic spine , w/o contr ast No observ ation record ed. [place] [id number] [facility] [address], [place], [address], 11/18/2021 08:58:30 Result Notes None recorded. Problems Name Problem SNOMED Code Status Onset Date Resolution Date Notes Provider Name and Address Organization Details Recorded Time Body mass index 40+ - severely obese 389555460 Active 2017 Cassie Larson PA-C Attn: Accounting ,[address] [place], [address] , [place] - [facility] 8 10:29:42 Atypical squamous cells of undeterm ined signific ance on cervical Papanico laou smear 543196735 Active 2017 [facility] and HPV+ on 11/23/17 - followed by Dr. Eneida Larson PA-C Attn: Accounting ,[address] [place], [address] , [place] [facility] 8 10:39:49 [facility] hyperten kaila 64102306 Active 2020 UMER STUART Attn: Accounting ,[address] [place], [address] , [place] [facility] 1 16:11:17 Neuropat hy 843130571 Active 2020 UMER STUART Attn: Accounting ,[address] [place], [address] , [place] [facility] 1 16:13:07 Supraven tricular tachycar sheila 9145017 Active 2021 UMER STUART Attn: Accounting ,[address] [place], [place], [address] [place] [address] , [place] [facility] 2 14:36:15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
[2024-08-17 08:25] VITALS: BP 131/76; PULSE 69; RESP 16; TEMP 36.2; O2SAT 98
--- NOTE | 2024-08-17 08:29 | WPDANESEPPF ---
Anes - Initial Pre Proc Eval Procedure: Operation Date: 08/17/24 09:30 Proposed Procedures p Esophagogastroduodenoscopy - Tony Robertson MD Date/Time: 08/17/24 08:29 Surgeon: Tony Robertson MD Pre Op Diagnosis: GERD Patient Data Age: 53 Gender: F Height: 1.71 m Weight: 106.7 kg Last Vital Signs Temp 97.1 F L 08/17/24 08:25 Pulse 69 08/17/24 08:25 Resp 16 08/17/24 08:25 BP 131/76 08/17/24 08:25 Pulse Ox 98 08/17/24 08:25 O2 Del Method Room Air 08/17/24 08:25 Allergies Allergy/AdvReac Type Severity Reaction Status Date / Time mold Allergy Itching, Verified 08/17/24 08:24 WATERY EYES pollen extracts Allergy Itching, Verified 08/17/24 08:24 WATERY EYES Home Medications ?Medication ?Instructions ?Recorded ?Confirmed ?Type duloxetine 60 mg capsule,delayed 60 mg PO BID 05/13/19 08/17/24 History release sprinkle ergocalciferol (vitamin D2) 1,250 50,000 unit PO WEEKLY 05/13/19 08/17/24 History mcg (50,000 unit) capsule (Vitamin D2) famotidine 20 mg tablet 20 mg PO BID PRN Acid Reflux 05/13/19 08/17/24 History hydroxyzine HCl 50 mg BYMOUTH TID PRN Anxiety 05/13/19 08/17/24 History buspirone 15 mg tablet 15 mg PO BID 04/07/22 08/17/24 History pregabalin 150 mg capsule 200 mg PO TID 04/07/22 08/09/24 History cilostazol 100 mg tablet 100 mg PO BID 05/26/23 08/17/24 History dulaglutide 1.5 mg/0.5 mL 1.5 mg subcut WEEKLY 05/26/23 08/17/24 History subcutaneous pen injector (Trulicity) hydrochlorothiazide 25 mg tablet 25 mg PO DAILY 05/26/23 08/17/24 History ibuprofen 400 mg tablet 400 mg PO Q6H PRN Pain 05/26/23 08/09/24 History metformin 500 mg tablet 500 mg PO BID 05/26/23 08/17/24 History rosuvastatin 5 mg tablet 5 mg PO HS 05/26/23 08/17/24 History pregabalin 200 mg capsule 200 mg PO Q8H 08/09/24 08/17/24 History Patient hx anesthesia problems: none Family hx anesthesia problems: none Results Review: All pre-operative results and documents have been reviewed as part of the pre-operative evaluation. [facility] Past Medical History Medical History DM2 (diabetes mellitus, type 2) Diabetic neuropathy Depression Numbness in both hands Knee pain, left Hip pain, left Back pain Kidney stone Endometriosis History of HPV infection Ovarian cyst Bilateral GERD (gastroesophageal reflux disease) HTN (hypertension) HLD (hyperlipidemia) Anxiety Diabetes Surgical History Surgical History History of incisional hernia repair Open periumbilical reducible incisional hernia repair (defect 2 cm) with Bard Ventralex ST mesh (6.4cm [place]). on 01/03/24 History of loop electrical excision procedure (LEEP) History of cholecystectomy Family History Family History Mother Family history of kidney disease Family history of diabetes mellitus in first degree relative Sibling Family history of diabetes mellitus in first degree relative Patient's brother is in good health Other Cerebrovascular accident Family history of allergic disorder Family history of cardiovascular disease Hypertension Social History Social History Social History: The patient is single. She does not have a durable power commercial attorney. She does need to have to be a full code. She has no children. She works in the bakery at [employer] Smoking status: Never smoker Alcohol intake: current Alcohol use details: DOES NOT DRINK NOW Substance use: never Substance use type: does not use Other substance usage details: LAST USE 2 YRS AGO Do You Feel Safe in your Home?: Yes Lack of Transportation: No Lack of Food: Sometimes True Current Housing: I Have Housing Concerned About Future Housing: No Difficulty Paying Gas/Electric Bills: No Difficulty Paying for Meds: No Currently Unemployed: No Education: Associate Degree Difficulty w/ Childcare or Family Care: No Living arrangements: with family Occupation/Education: occupation Additional occupation/education comments: Bakery at [employer] Gender identity (if verbalized by the patient): Female Spiritual care concerns: No Agree to blood products: Yes Anes - Eval Final PreProcedure Day of Procedure 08/17/24 08:29 Patient weight: obese Lungs: normal air movement Airway: Mallampati scale and special considerations (Several missing teeth, poor condition, none loose. ) Neurological: alert and oriented Last oral intake: >/= 8 hours ASA classification: III Emergent: no Anesthetic plan: proceed Anesthesia type and monitoring: general GIVS and standard monitoring Results Review: All pre-operative results and documents have been reviewed as part of the pre-operative evaluation. HTN, hyperlipidemia, DM, GERD. Pt can walk 15 steps up, no cp or sob. Informed Consent: The patient's anesthetic plan and its attendant risks and benefits were discussed with the patient/family/POA. Questions were solicited and answers provided to the satisfaction of the patient/family/POA.
[2024-08-17] MEDS: LACTATED RINGERS 1,000 ML 150 ML IV CONT (08:38)
[2024-08-17 08:39] LABS: Glucose Point of Care 109 mg/dl (65-105)
--- NOTE | 2024-08-17 09:13 | PM.HPGS ---
History of Present Illness History of Present Illness Consent: Risks, benefits, and alternatives have been discussed and questions answered. Patient agrees to proceed with procedure. Chief complaint: GERD Narrative: Apryl Pham is a 53 year old female with symptomatic gerd on famotidine and pepto, never had egd Review of Systems Review of Systems: All systems reviewed & are unremarkable except as noted in HPI and below PMFSH Past Medical History Medical History DM2 (diabetes mellitus, type 2) Diabetic neuropathy Depression Numbness in both hands Knee pain, left Hip pain, left Back pain Kidney stone Endometriosis History of HPV infection Ovarian cyst Bilateral GERD (gastroesophageal reflux disease) HTN (hypertension) HLD (hyperlipidemia) Anxiety Diabetes Surgical History Surgical History History of incisional hernia repair Open periumbilical reducible incisional hernia repair (defect 2 cm) with Bard Ventralex ST mesh (6.4cm [place]). on 01/03/24 History of loop electrical excision procedure (LEEP) History of cholecystectomy Family History Family History Mother Family history of kidney disease Family history of diabetes mellitus in first degree relative Sibling Family history of diabetes mellitus in first degree relative Patient's brother is in good health Other Cerebrovascular accident Family history of allergic disorder Family history of cardiovascular disease Hypertension Social History Social History Social History: The patient is single. She does not have a durable power employee benefits attorney. She does need to have to be a full code. She has no children. She works in the bakery at [employer] Smoking status: Never smoker Alcohol intake: current Alcohol use details: DOES NOT DRINK NOW Substance use: never Substance use type: does not use Other substance usage details: LAST USE 2 YRS AGO Do You Feel Safe in your Home?: Yes Lack of Transportation: No Lack of Food: Sometimes True Current Housing: I Have Housing Concerned About Future Housing: No Difficulty Paying Gas/Electric Bills: No Difficulty Paying for Meds: No Currently Unemployed: No Education: Associate Degree Difficulty w/ Childcare or Family Care: No Living arrangements: with family Occupation/Education: occupation 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 Gender identity (if verbalized by the patient): Female Spiritual care concerns: No Agree to blood products: Yes Meds Home Medications and Allergies Home Medications ?Medication ?Instructions ?Recorded ?Confirmed ?Type duloxetine 60 mg capsule,delayed 60 mg PO BID 05/13/19 08/17/24 History release sprinkle ergocalciferol (vitamin D2) 1,250 50,000 unit PO WEEKLY 05/13/19 08/17/24 History mcg (50,000 unit) capsule (Vitamin D2) famotidine 20 mg tablet 20 mg PO BID PRN Acid Reflux 05/13/19 08/17/24 History hydroxyzine HCl 50 mg BYMOUTH TID PRN Anxiety 05/13/19 08/17/24 History buspirone 15 mg tablet 15 mg PO BID 04/07/22 08/17/24 History pregabalin 150 mg capsule 200 mg PO TID 04/07/22 08/09/24 History cilostazol 100 mg tablet 100 mg PO BID 05/26/23 08/17/24 History dulaglutide 1.5 mg/0.5 mL 1.5 mg subcut WEEKLY 05/26/23 08/17/24 History subcutaneous pen injector (Trulicity) hydrochlorothiazide 25 mg tablet 25 mg PO DAILY 05/26/23 08/17/24 History ibuprofen 400 mg tablet 400 mg PO Q6H PRN Pain 05/26/23 08/09/24 History metformin 500 mg tablet 500 mg PO BID 05/26/23 08/17/24 History rosuvastatin 5 mg tablet 5 mg PO HS 05/26/23 08/17/24 History pregabalin 200 mg capsule 200 mg PO Q8H 08/09/24 08/17/24 History Allergies Allergy/AdvReac Type Severity Reaction Status Date / Time mold Allergy Itching, Verified 08/17/24 08:24 WATERY EYES pollen extracts Allergy Itching, Verified 08/17/24 08:24 WATERY EYES Vital Signs Vital Signs - 24 hr 08/17/24 08:25 Temperature 97.1 F L Pulse Rate 69 Respiratory Rate 16 Blood Pressure 131/76 Pulse Oximetry 98 Oxygen Delivery Room Air Exam Const: General: comfortable and no acute distress HENMT: Face/Nose/Sinus: Normal nares present Eyes: General: appearance normal, both eyes and all related structures Neck: Neck: no JVD Resp: Auscultation: clear to auscultation bilaterally Cardio: Rate: regular rate Rhythm: regular rhythm GI: Inspection: non-distended GI Palp: Yes Soft to palpation Skin: General skin exam: normal color Neuro: General: gait normal Speech: normal speech Extrem: General: normal to inspection Psych: Mental Status: mental status grossly normal Assessment and Plan Assessment and plan (1) GERD (gastroesophageal reflux disease): Code(s): K21.9 - Gastro-esophageal reflux disease without esophagitis Status: Chronic Assessment and Plan: egd with bx
[2024-08-17] MEDS: BENZOCAINE (*SP) 60 ML SPRAY CAN (HURRICAINE) 1 SPRAY MUCOUS MEM (09:21)
[2024-08-17 09:29] VITALS: BP 139/83; PULSE 74; RESP 18; O2SAT 95
[2024-08-17 09:39] VITALS: BP 131/68; PULSE 76; RESP 20; O2SAT 96
[2024-08-17 09:49] VITALS: BP 133/69; PULSE 72; RESP 20; O2SAT 98
== END 2024-08-17 10:02 | disposition home or self-care (01) ==
PROVIDERS: PCP Family Medicine; Visit Provider Internal Medicine Gastroenterology
PROC: 0DJ08ZZ Inspection of Upper Intestinal Tract, Via Natural or Artificial Opening Endoscopic (ICD-10-PCS; CPT 43239; principal; 2024-08-17 09:30)
DX: K22.10 Ulcer of esophagus without bleeding (principal); K44.9 Diaphragmatic hernia without obstruction or gangrene; K29.70 Gastritis, unspecified, without bleeding; E11.9 Type 2 diabetes mellitus without complications; E66.9 Obesity, unspecified; Z68.36 Body mass index [BMI] 36.0-36.9, adult
CPT/HCPCS: 43239; 82948; 88305; J2003; J2704; J7120

== ENCOUNTER 2024-11-17 08:00 | Emergency (ER) | payer BC, SELFPAY ==
[2024-11-17 08:03] VITALS: PULSE 82; RESP 14; TEMP 36.9; O2SAT 98
--- OUTSIDE RECORDS SUMMARY | 2024-11-17 08:04 | XMS_ITS | Clinical Summary ---
Author Organization [facility] Address [address] [place] [address] Care Team Providers Care Heat Plant Specialist Name Role Phone Cassie Larson PA-C Primary Care Provider [phone] Source Comments [facility],non-owned Affiliates and Associated Physician Practices is amultiple site organization consisting of ambulatory clinics and hospital sitesin [place], [place], [place] and [place]. This disclosure is being madepursuant to the Care Everywhere program and may not contain all information available regarding this patient. Last updated 18.[facility] Allergies No known active allergies Medications * Be aware that medications may not be up to date on this document. Alwaysverify current medications with the patient. atorvastatin (LIPITOR) 10 MG tablet 7 Active norethindrone-e thinyl estradiol (MICROGESTIN) 1.5-30 MG-MCG tablet 7 Active QUEtiapine (SEROQUEL) 100 MG tablet 7 Active hydrOXYzine pamoate (VISTARIL) 25 MG capsule 7 Active gabapentin (NEURONTIN) 300 MG capsule 7 Active citalopram (CELEXA) 40 MG tablet 7 Active blood glucose (TRUE METRIX BLOOD GLUCOSE TEST) test strip 7 Active meloxicam (MOBIC) 15 MG tablet Take 15 mg by mouth DAILY. 30 tablet 3 7 Active lancets 7 Active GNP ALCOHOL SWABS 70 % 7 Active traZODone (DESYREL) 100 MG tablet 7 Active venlafaxine XR 24hr (EFFEXOR XR) 150 MG capsule 7 Active metFORMIN (GLUCOPHAGE) 500 MG tablet 7 Active furosemide (LASIX) 40 MG tablet 7 Active lisinopril (PRINIVIL; ZESTRIL) 10 MG tablet 7 Active diclofenac sodium EC (VOLTAREN) 75 MG tablet diclofenac sodium 75 mg tablet,delayed release Active DULoxetine (CYMBALTA) 60 MG capsule duloxetine 60 mg capsule,delayed release Active Social History Tobacco Use Types Packs/Day Years Used Date Smoking Tobacco: Never Smokeless Tobacco: Never Comments Unknown Sex and Gender Information Value Date Recorded Sex Assigned at Not on file 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 Gender Identity Not on file Sexual Orientation Not on file Last Filed Vital Signs Vital Sign Reading Time Taken Comments Blood Pressure - - Pulse - - Temperature - - Respiratory Rate - - Oxygen Saturation - - Inhaled Oxygen Concentration - - Weight 116.6 kg (257 lb) 2018 1:32 PM CDT Height 170.2 cm (5' 7) 2018 1:32 PM CDT Body Mass Index [...] VACCINE (1 - 2023-2 5 season) 2024 DEPRESSION SCREENING 06/21/2024 INFLUENZA VACCINE (Season Ended) 2025 04/22/20 17 HIB VACCINE Aged Out No longer eligi ble based on patient's age to complete this topic HPV VACCINE Aged Out No longer eligi ble based on patient's age to complete this topic MENINGOCOCCAL (Group B) VACC INE SHARED DECISION-MAKING Aged Out No longer eligibl e based on patient's age to complete this topic MENINGOCOCCAL GROUPS A/C/Y/W VACCINE Aged Out No longer eligible b ased on patient's age to complete this topic Insurance SELF PAY NO INSURANCE Member Subscriber Plan / Payer (Ef fective for All Dates) Name:Sam Miller Member ID:Not on file Relation to Subscriber:Not on file Name:SAM MILLER Subscriber ID:Not on file (Home) Address: [address] [place] [address] Payer ID:Not on file Group ID:Not on file Type:Self Pay Address: [place], [place] * Guarantor: SAM MILLER Account Type Relation to Patient Date of Phone Billing Address Personal/Family [address] [place] [address] SELF PAY NO INSURANCE Member Subscriber Plan / Payer (Ef fective for All Dates) Name:Sam Miller Member ID:Not on file Relation to Subscriber:Not on file Name:SAM MILLER Subscriber ID:Not on file Address: [address] [place] [address] Payer ID:Not on file Group ID:Not on file Type:Self Pay Address: [place], [place] * Guarantor: SAM MILLER Account Type Relation to Patient Date of Phone Billing Address Personal/Family [address] [place] [address] SELF PAY NO INSURANCE Member Subscriber Plan / Payer (Ef fective for All Dates) Name:Sam Miller Member ID:Not on file Relation to Subscriber:Not on file Name:SAM MILLER Subscriber ID:Not on file Address: [address] [place] [address] Payer ID:Not on file Group ID:Not on file Type:Self Pay Address: [place], [place] * Guarantor: SAM MILLER Account Type Relation to Patient Date of Phone Billing Address Personal/Family [address] [place] [address] SELF PAY NO INSURANCE Member Subscriber Plan / Payer (Ef fective for All Dates) Name:Sam Miller Member ID:Not on file Relation to Subscriber:Not on file Name:SAM MILLER Subscriber ID:Not on file Address: [address] [place] [address] Payer ID:Not on file Group ID:Not on file Type:Self Pay Address: [place], [place] Care Teams Heat Plant Specialist Relationship Specialty Start Date End Date Cassie Larson PA-C PCP - General 02/16/17
[2024-11-17 08:12] VITALS: BP 161/69; PULSE 74; RESP 14; TEMP 36.9; O2SAT 98
[2024-11-17] MEDS: TETANUS,DIPHTHERIA,AC PERTUSSIS ADULT (0.5 ML) BOOSTRIX IM (08:43)
--- OUTSIDE RECORDS SUMMARY | 2024-11-17 08:52 | XMS_ITS | Data Portability ---
Author Organization [place] [facility] OFF[facility] Address [address] [place] [address] Assessment No assessment recorded. Plan of Treatment [...] By Organization Details Last Modified Time 05/30/2019 [id number] Weight loss 20 pounds Exercise advised Low cholesterol diet advised Low sodium diet advised Not available 05/30/2019 14:53:13 Scribed by Angelica Lopez PA-C Not available 05/30/2019 14:53:38 07/11/2019 [id number] Weight loss 20 pounds Exercise advised Low cholesterol diet advised Low sodium diet advised Not available 07/11/2019 16:39:31 Scribed by Angelica Lopez PA-C Not available 07/11/2019 16:39:48 Reason for Referral None Reported. Results Created Date Observation Date Name Description Value Unit Range Abnormal Flag Note LastModifiedBy Organization Detail LastModifiedTime 06/13/20 19 05/30/2019 elect rocar diogr am No observ ation record ed. fhearn Not Available 2018 12:29:10 06/25/19 20 06/23/2019 , echoc paradise gram No observ ation record ed. [facility] [address] [place] [address] Dr Gutiérrez, [place], [address], 07/09/2019 12:54:59 06/26/19 20 06/23/2019 [place], echoc [...] Organization Details Recorded Time Supraventricul ar tachycardia 7998348 Active 2018 Halandre Landeros null, [place] - [facility] 9 04:34:05 Essential hypertension 60535281 Active 2018 Hala Tigre [place] [facility] 9 04:34:19 Gastroesophage al reflux disease 496918232 Active 2018 Hala Tig[place] [facility] 9 04:34:25 Type 2 diabetes mellitus 92638618 Active 2018 Hala [place] [facility] 9 04:34:37 Anxiety 91503603 Active 2018 Hala Tigre [place] [facility] 9 04:34:47 Chronic back pain 843527665 Active 2018 Hala Tig[place] [facility] 9 04:34:58 Hyperlipidemia 70800245 Active 2018 Hala [place] [facility] 9 04:35:07 Kidney stone 35318540 Active 2018 Hala [place] [facility] 9 04:35:19 Cyst of ovary 99762773 Active 2018 Hala Tig[place] [facility] 9 04:35:41 Numbness of hand 109887681 Active 2018 Hala Tigre [place] [facility] 9 04:36:05 Endocarditis 13846251 Active 2018 Yoselin Zhang [place], [place] [facility] 9 13:10:37 Diabetes mellitus 92218024 Active 2018 Yoselin Zhang [place], [place] - [facility] 9 13:11:02 Sleep pattern disturbance 36280249 Active 2019 Yoselin Zhang [facility] 0 15:48:07 Problem Notes None recorded. Medical Equipment None Reported. [...] Updated DateTime 0 170.18 cm 37.9 kg/m2 547089. 35 g 76 /min 98 % 98 % 110 mm[Hg] 70 mm[Hg] [facility] 0 16:16:08 Date Recorded Body height Body mass index (BMI) Body weight Heart rate Oxygen saturation Oxygen saturation in Arterial blood by Pulse oximetry Systolic blood pressure Diastolic blood pressure Provider Name and Address Organization Details Last Updated DateTime 9 170.18 cm 39.2 kg/m2 765636. 09 g 76 /min 99 % 99 % 130 mm[Hg] 82 mm[Hg] [facility] 9 14:14:44 Social History Question Answer Notes LastModified by [employer] Details LastModified Time Tobacco Smoking Status Never Smoker Not Available [facility] 04/23/2020 03:30:40 Which Illicit Or Recreational Drugs Have You Used? None [id number] Information not available 04/23/2020 How Much Tobacco Do You Smoke? No [id number] Information not available 04/23/2020 How Many Years Have You Smoked Tobacco? 0 [id number] Information not available 04/23/2020 Sex: Unknown Functional Status Question Answer Note LastModified by [employer] Details LastModified Time What is your level of alcohol consumption? None [id number] Information not available 04/23/2020 Do you or have you ever used smokeless tobacco? Never used smokeless tobacco [id number] Information not available 04/23/2020 Do you or have you ever used e-cigarettes or vape? Never used electronic cigarettes [id number] Information not available 04/23/2020 Mental Status None recorded. Family History Relationship [...] available 2018 13:13:22 Medical History Condition Response Diabetes Y Hyperlipidemia Y Arrhythmia Y Hypertension Y GERD/Reflux Y Gynecological HistoryNo gynecological history recorded. Obstetrics History GPAL:G 0 P 0 0 0 0 Past Encounters Encounter ID Performer Location Encounter Start Date Encounter Closed Date Diagnosis/Indication Diagnosis SNOMED-CT Code Diagnosis ICD10 Code Diagnosis Note [id number] Lencho Canseco MD [place] OFF[facility] [address] [place] [address] 05/30/2019 14:03:57 06/03/2019 10:11:15 Edema of lower extremity 467243101 R60.0 Cr is 0.88 05/23/19. She may resume Lasix 40mg daily. Will order echo to evaluate for structural disease. Swelling is R>L; will order venous reflux study if echo is normal. Dyspnea on exertion 6084 5006 R06.09 Echo to evaluate for structural disease. Supraventr icular tachycardia 9038358 I47.1 Recent diagnosis, hospital admission 05/13/2019 . Episodes of palpitatio ns over past 2 weeks, last seconds. Symptoms are not limiting, fairly well controlled on Metoprolol . Treadmill Myoview Stress test, to evaluate exercise induced symptoms. Continue Metoprolol . Continue reduced caffeine intake. Consider mobile telemetry, and possible ablation if symptoms persist or worsen. Essential hypertension 21420668 I10 Controlled . Continue medication s. Hyperlipidemia 47975133 E78.5 Needs to keep LDL less than 100, and HDL more than 40 Will get fasting lipids for follow up Acute inju ry of kidney 6020751272 2445200 N17.9 05/23/2019 Cr 0.88. [id number] Lencho Canseco MD [place] OFF[facility] [address] [place] [address] 07/11/2019 15:54:25 07/11/2019 17:28:42 Essential hypertension 09599432 I10 Controlled . Continue medication s. Sleep tyesha obie disturbance 91777470 G47.9 Will order sleep study to evaluate for KEVIN. Supraventr icular tachycardia 2545872 I47.1 Recent diagnosis, hospital admission 05/13/2019 . Now on Metoprolol with fair control, reports 2-3 episodes of palpitatio ns lasting 30 min. She may take extra Metoprolol with symptoms. Also educated pt on vagal maneuvers Continue Metoprolol . Continue reduced caffeine intake. Consider mobile telemetry, and possible ablation if symptoms persist or worsen. Type 2 sheila betes mellitus without complication 509731460 E11.9 Treatment and evaluation by primary care doctor. Discussed importance of adequate glycemic control to minimize cardiovasc ular disease progressio n. A1C goal of < 7% for type 2 DM Health Concerns Section Related Observation LastModified by Organization Detai ls LastModified Time None Recorded Concern Status LastModified by Organization Details LastModified Time None Recorded Advance Directives Directive None Recorded Payers Insurance Date Sequence Insurance Name Policy Number Policy Black Covered Member ID Black Member ID Guarantor Name 05/17/2020 1 [facility] PRIOR TO 12/19/2020 (MEDICAID REPLACEMENT - HMO) Apryl Pham [id number] Apryl Pham Notes Date Note Type Note Provider Name and Address Organization Details Recorded Time 05/30/2019 text/html 05/30/19 CC : palpitations 48 years-old Female with h/o Hypertension, Hyperlipidemia and Type 2 Diabetes mellitus is here for hospital follow up . She was in [facility] in 05/13/19 because of Subraventricular tachycardia . [...] (age 70s) and uncle (age 50s) with NV Results from this visit, or from the [...] , CR 0.88 , Lencho Canseco MD [address] [place], [address], [place] [facility] 06/03/2019 10:11:13 07/11/2019 text/html 07/11/19 CC : palpitations 48 years-old Female with h/o Hypertension, Hyperlipidemia and Type 2 Diabetes mellitus is here for hospital follow up . She was in [facility] in 05/13/19 because of Supraventricular tachycardia . [...] (age 70s) and uncle (age 50s) with NV *Had negative myocardial perfusion study done in [...] Attachment available electrocardiogram 05-30-2019 EKG, 05/30/19: Anteroseptal NV, age undetermined, mu unknownelectrocardiogr am 05-30-2019 Guilherme brunner [place] - [facility] 07/11/2019 17:28:40 OBGyn Episode No OBEpisode recorded.
--- OUTSIDE RECORDS SUMMARY | 2024-11-17 08:52 | XMS_ITS | Data Portability ---
Author Organization [facility] Address [address] [place] [address] Care Team Providers Care Loan Specialist Name Role Phone ENEIDA MOE Documentation Supervisor [phone] MARYCHUY PERRY Orthopedic Surgeon CARLI CHAUDHRY Psychiatrist ANA CRISTINA PEPPER Primary Care Provider Assessment Encounter Date Assessment Date Assessment LastModified by Organization Details LastModified Time 01/03/2020 01/03/2020 LUQ pain, nausea, discomfort, present for 3 weeks. pt has GB out, no periods any more, and no change in symptoms with urination. Slight improvement with defecation. Not available 01/10/2020 23:01:22 07/05/2020 07/05/2020 generalized arthritis, worst in the feet. Not available 07/05/2020 12:33:10 Plan of Treatment Reminders Order Date Submit Date Provider Last Modified By Organization Details Last Modified Time Details Appointments None recorded. Lab HbA1c (hemoglobi n A1c), blood 2021 022 [facility], [address], [place], [address], 08:21:37 lipid panel, serum 2021 022 [facility], [address], [place], [address], 08:21:37 CBC w/ auto diff 2020 021 [facility], [address], [place], [address], 1 08:25:08 CMP, serum or plasma 2020 [facility], [address], [place], [address], 1 08:25:09 lipid panel, serum 2020 021 [facility], [address], [place], [address], 1 08:25:11 TSH + free T4, serum 2020 [facility], [address], [place], [address], 1 08:25:07 HbA1c (hemoglobi n A1c), blood 2020 021 [facility], [address], [place], [address], 1 08:25:12 inflammati on panel, serum or plasma 2020 021 [facility], [address], [place], [address], 1 12:41:19 uric acid, serum or plasma 2020 021 [facility], [address], [place], [address], 1 12:41:19 CBC 2019 020 [facility], [address], [address], [place], [address], 0 14:11:12 CMP, serum or plasma 2019 020 [facility], [address], [address], [place], [address], 0 14:11:11 amylase + lipase, serum 2019 020 [facility], [address], [address], [place], [address], 0 14:11:13 ca 125, serum 2019 020 [facility], [address], [address], [place], [address], 0 14:11:[address] referral 2020 021 [email or web address] Petey Diaz MD, [address] [facility], [facility] [address], [place], [address], 1 15:32:32 sales/marketing referral 2020 021 [email or web address] Not available 1 10:50:01 Procedures None recorded. Surgeries None recorded. Imaging US, abdomen, complete 2019 020 [facility] ([facility]), [address] [place], [address], 0 11:22:34 Medication Orders metoprolol succinate ER 25 mg tablet,ext ended release 24 hr 2021 022 [facility] [id number] [facility], [address] [place] [address], [place], [address], 2 14:51:19 duloxetine 60 mg capsule,de layed release 2020 021 [facility] [address] [facility], [address] [facility], [place], [address], 1 12:00:13 buspirone 15 mg tablet 2020 021 [email or web address] [address] In [facility], [address], [place], [address], 16:05:48 tramadol 50 mg tablet 2020 021 [facility] [address], [address] [place], [address], 15:15:05 hydroxyzin e pamoate 50 mg capsule 2020 021 [facility] [address], [address] [place], [address], 12:41:24 Patient TargetsNo targets recorded. 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 Referring [...] 65-99 above high normal Not Available [facility] ([facility]) [address] [facility], [place], [address], 01/09/2020 14:11:11 01/08/2001/09/2020 CMP, serum or plasm a BUN 13 mg/dL 6-24 Not Available [facility] ([facility]) [address] [facility], [place], [address], 01/09/2020 14:11:11 01/08/2007 0101/09/2020 CMP, serum or plasm a creatinine 0.76 mg/dL 0.57-1 .00 Not Available [facility] ([facility]) [address] [place], [address], 01/09/2020 14:11:11 01/08/20 20 01/09/2020 CMP, serum or plasm a eGFR if nonafricn AM 94 mL/mi n/1.7 3 >59 Not Available [facility] ([facility]) [address] [place], [address], 01/09/2020 14:11:11 01/08/20 20 01/09/2020 CMP, serum or plasm a eGFR if africn AM 108 mL/mi n/1.7 3 >59 Not Available [facility] ([facility]) [address] [place], [address], 01/09/2020 14:11:11 01/08/20 20 01/09/2020 CMP, serum or plasm a BUN/creatini ne ratio 17 9-23 Not Available [facility] ([facility]) [address] [place], [address], 01/09/2020 14:11:11 01/08/20 20 01/09/2020 CMP, serum or plasm a sodium 141 mmol/ L 134-14 4 Not Available [facility] ([facility]) [address] [place], [address], 01/09/2020 14:11:11 01/08/20 20 01/09/2020 CMP, serum or plasm a potassium 4.4 mmol/ L 3.5-5. 2 Not Available [facility] ([facility]) [address] [place], [address], 01/09/2020 14:11:11 01/08/20 20 01/09/2020 CMP, serum or plasm a chloride 103 mmol/ L 96-106 Not Available [facility] ([facility]) [address] [place], [address], 01/09/2020 14:11:11 01/08/20 20 01/09/2020 CMP, serum or plasm a carbon dioxide, total 24 mmol/ L 20 Not Available [facility] ([facility]) [address] [facility], [place], [address], 01/09/2020 14:11:11 01/08/20 20 01/09/2020 CMP, serum or plasm a calcium 9.0 mg/dL 8.7-10 .2 Not Available [facility] ([facility]) [address] [place], [address], 01/09/2020 14:11:11 01/08/20 20 01/09/2020 CMP, serum or plasm a protein, total 7.1 g/dL 6.0-8. 5 Not Available [facility] ([facility]) [address] [place], [address], 01/09/2020 14:11:11 01/08/20 20 01/09/2020 CMP, serum or plasm a albumin 4.1 g/dL 3.8-4. 8 Not Available [facility] ([facility]) [address] [facility], [place], [address], 01/09/2020 14:11:11 01/08/20 20 01/09/2020 CMP, serum or plasm a globulin, total 3.0 g/dL 1.5-4. 5 Not Available [facility] ([facility]) [address] [place], [address], 01/09/2020 14:11:11 01/08/20 20 01/09/2020 CMP, serum or plasm a A/G ratio 1.4 1.2-2. 2 Not Available [facility] ([facility]) [address] [place], [address], 01/09/2020 14:11:11 01/08/20 20 01/09/2020 CMP, serum or plasm a bilirubin, total 0.2 mg/dL 0.0-1. 2 Not Available [facility] ([facility]) [address] [facility] [place], [address], 01/09/2020 14:11:11 01/08/20 20 01/09/2020 CMP, serum or plasm a alkaline phosphatase 127 IU/L 39-117 above high normal Not Available [facility] ([facility]) [address] [facility] [place], [address], 01/09/2020 14:11:11 01/08/20 20 01/09/2020 CMP, serum or plasm a AST (SGOT) 26 IU/L 0-40 Not Available [facility] ([facility]) [address] [facility] [place], [address], 01/09/2020 14:11:11 01/08/20 20 01/09/2020 CMP, serum or plasm a ALT (SGPT) 43 IU/L 0-32 above high normal Not Available [facility] ([facility]) [address] [facility] [place], [address], 01/09/2020 14:11:11 01/08/20 20 01/09/2020 CBC WBC 11.3 x10e3 /uL 3.4-10 .8 above high normal Not Available [facility] ([facility]) [address] [facility] [place], [address], 01/09/2020 14:11:12 01/08/20 20 01/09/2020 CBC RBC 4.48 x10e6 /uL 3.77-5 .28 Not Available [facility] ([facility]) [address] [facility] [place], [address], 01/09/2020 14:11:12 01/08/20 20 01/09/2020 CBC hemoglobin 12.3 g/dL 11.1-1 5.9 Not Available [facility] ([facility]) [address] [facility] [place], [address], 01/09/2020 14:11:12 01/08/20 20 01/09/2020 CBC hematocrit 38.4 % 34.0-4 6.6 Not Available [facility] ([facility]) [address] [facility], [place], [address], 01/09/2020 14:11:12 01/08/20 20 01/09/2020 CBC MCV 86 fL 79-97 Not Available [facility] ([facility]) [address] [facility], [place], [address], 01/09/2020 14:11:12 01/08/20 20 01/09/2020 CBC MCH 27.5 pg 26.6-3 3.0 Not Available [facility] ([facility]) [address] [facility], [place], [address], 01/09/2020 14:11:12 01/08/20 20 01/09/2020 CBC MCHC 32.0 g/dL 31.5-3 5.7 Not Available [facility] ([facility]) [address] [facility], [place], [address], 01/09/2020 14:11:12 01/08/20 20 01/09/2020 CBC RDW 15.0 % 11.7-1 5.4 Not Available [facility] ([facility]) [address] [facility], [place], [address], 01/09/2020 14:11:12 01/08/20 20 01/09/2020 CBC platelets 336 x10e3 /uL 150-45 0 Not Available [facility] ([facility]) [address] [place], [address], 01/09/2020 14:11:12 01/08/20 20 01/09/2020 CBC NRBC USER INTERFACE ENGINEER Not Available [facility] ([facility]) [address] [place], [address], 01/09/2020 14:11:12 01/08/20 20 01/09/2020 amyla se + lipas e, serum amylase 73 U/L 31-110 Not Available [facility] ([facility]) [address] [facility], [place], [address], 01/09/2020 14:11:13 01/08/20 20 01/09/2020 amyla se + lipas e, serum lipase 41 U/L 14-72 Not Available [facility] ([facility]) [address] [facility], [place], [address], 01/09/2020 14:11:13 01/08/20 20 01/09/2020 ca 125, serum cancer antigen (Ca) 125 10.7 U/mL 0.0-38 .1 Mariano Diagn ostic s Elect mariano milum inesc ence Immun oassa y (ECLI A) Value s obtai nicolasa with diffe rent assay metho ds or kits canno t be used [facility] . Resul ts canno t be inter prete d as absol [place] [facility] [place] evide nce of the prese nce or absen [facility] o[facility] se. Not Available [facility] ([facility]) [address] [facility], [place], [address], 01/09/2020 14:11:13 01/15/20 20 01/16/2020 amyla se + lipas e, serum amylase 60 U/L 31-110 Not Available [facility] ([facility]) [address] [place], [address], 01/16/2020 09:13:47 01/15/20 20 01/16/2020 amyla se + lipas e, serum lipase 28 U/L 14-72 Not Available [facility] ([facility]) [address] [facility], [place], [address], 01/16/2020 09:13:47 01/15/20 20 01/16/2020 hepat itis [...] ion test ([id number]). Not Available [facility] ([facility]) [address] [place], [address], 01/16/2020 09:13:48 01/15/2001/16/2020 Hepat itis B virus core Ab, qual immun oassa y, serum or plasm a hep B core Ab, tot NEGATI VE negati ve Not Available [facility] ([facility]) [address] [place], [address], 01/16/2020 09:13:49 05/07/2005/08/2021 TSH+F REE T4 TSH 2.980 uIU/m L 0.450- 4.500 Not Available [facility] ([facility]) [address] [place], [address], 05/08/2021 08:25:07 05/07/2005/08/2021 TSH+F REE T4 T4,free(dire ct) 0.91 NG/dL 0.82-1 .77 Not Available [facility] ([facility]) [address] [place], [address], 05/08/2021 08:25:07 05/07/2005/08/2021 CBC WITH DIFFE RENTI AL/PL ATELE T WBC 13.1 x10e3 /uL 3.4-10 .8 above high normal Not Available [facility] ([facility]) [address] [place], [address], 05/08/2021 08:25:08 05/07/20 21 05/08/2021 CBC WITH DIFFE RENTI AL/PL ATELE T RBC 5.06 x10e6 /uL 3.77-5 .28 Not Available [facility] ([facility]) [address] [place], [address], 05/08/2021 08:25:08 05/07/20 21 05/08/2021 CBC WITH DIFFE RENTI AL/PL ATELE T hemoglobin 14.1 g/dL 11.1-1 5.9 Not Available [facility] ([facility]) [address] [place], [address], 05/08/2021 08:25:08 05/07/20 21 05/08/2021 CBC WITH DIFFE RENTI AL/PL ATELE T hematocrit 42.4 % 34.0-4 6.6 Not Available [facility] ([facility]) [address] [place], [address], 05/08/2021 08:25:08 05/07/20 21 05/08/2021 CBC WITH DIFFE RENTI AL/PL ATELE T MCV 84 fL 79-97 Not Available [facility] ([facility]) [address] [place], [address], 05/08/2021 08:25:08 05/07/20 21 05/08/2021 CBC WITH DIFFE RENTI AL/PL ATELE T MCH 27.9 pg 26.6-3 3.0 Not Available [facility] ([facility]) [address] [place], [address], 05/08/2021 08:25:08 05/07/20 21 05/08/2021 CBC WITH DIFFE RENTI AL/PL ATELE T MCHC 33.3 g/dL 31.5-3 5.7 Not Available [facility] ([facility]) [address] [place], [address], 05/08/2021 08:25:08 05/07/20 21 05/08/2021 CBC WITH DIFFE RENTI AL/PL ATELE T RDW 14.2 % 11.7-1 5.4 Not Available [facility] ([facility]) [address] [place], [address], 05/08/2021 08:25:08 05/07/20 21 05/08/2021 CBC WITH DIFFE RENTI AL/PL ATELE T platelets 335 x10e3 /uL 150-45 0 Not Available [facility] ([facility]) [address] [facility], [place], [address], 05/08/2021 08:25:08 05/07/20 21 05/08/2021 CBC WITH DIFFE RENTI AL/PL ATELE T neutrophils 56 % not estab. Not Available [facility] ([facility]) [address] [facility], [place], [address], 05/08/2021 08:25:08 05/07/20 21 05/08/2021 CBC WITH DIFFE RENTI AL/PL ATELE T lymphs 35 % not estab. Not Available [facility] ([facility]) [address] [facility], [place], [address], 05/08/2021 08:25:08 05/07/20 21 05/08/2021 CBC WITH DIFFE RENTI AL/PL ATELE T monocytes 5 % not estab. Not Available [facility] ([facility]) [address] [facility], [place], [address], 05/08/2021 08:25:08 05/07/20 21 05/08/2021 CBC WITH DIFFE RENTI AL/PL ATELE T eos 3 % not estab. Not Available [facility] ([facility]) [address] [facility], [place], [address], 05/08/2021 08:25:08 05/07/20 21 05/08/2021 CBC WITH DIFFE RENTI AL/PL ATELE T basos 1 % not estab. Not Available [facility] ([facility]) [address] [facility], [place], [address], 05/08/2021 08:25:08 05/07/20 21 05/08/2021 CBC WITH DIFFE RENTI AL/PL ATELE T immature cells USER INTERFACE ENGINEER Not Available [facility] ([facility]) [address] [place], [address], 05/08/2021 08:25:08 05/07/20 21 05/08/2021 CBC WITH DIFFE RENTI AL/PL ATELE T neutrophils (absolute) 7.2 x10e3 /uL 1.4-7. 0 above high normal Not Available [facility] ([facility]) [address] [place], [address], 05/08/2021 08:25:08 05/07/2005/08/2021 CBC WITH DIFFE RENTI AL/PL ATELE T lymphs (absolute) 4.6 x10e3 /uL 0.7-3. 1 above high normal Not Available [facility] ([facility]) [address] [place], [address], 05/08/2021 08:25:08 05/07/20 21 05/08/2021 CBC WITH DIFFE RENTI AL/PL ATELE T monocytes(ab solute) 0.7 x10e3 /uL 0.1-0. 9 Not Available [facility] ([facility]) [address] [place], [address], 05/08/2021 08:25:08 05/07/20 21 05/08/2021 CBC WITH DIFFE RENTI AL/PL ATELE T eos (absolute) 0.4 x10e3 /uL 0.0-0. 4 Not Available [facility] ([facility]) [address] [place], [address], 05/08/2021 08:25:08 05/07/20 21 05/08/2021 CBC WITH DIFFE RENTI AL/PL ATELE T baso (absolute) 0.2 x10e3 /uL 0.0-0. 2 Not Available [facility] ([facility]) [address] [place], [address], 05/08/2021 08:25:08 05/07/20 21 05/08/2021 CBC WITH DIFFE RENTI AL/PL ATELE T immature granulocytes 0 % not estab. Not Available [facility] ([facility]) [address] [facility], [place], [address], 05/08/2021 08:25:08 05/07/20 21 05/08/2021 CBC WITH DIFFE RENTI AL/PL ATELE T immature grans (abs) 0.0 x10e3 /uL 0.0-0. 1 Not Available [facility] ([facility]) [address] [facility], [place], [address], 05/08/2021 08:25:08 05/07/20 21 05/08/2021 CBC WITH DIFFE RENTI AL/PL ATELE T NRBC USER INTERFACE ENGINEER Not Available [facility] ([facility]) [address] [facility], [place], [address], 05/08/2021 08:25:08 05/07/20 21 05/08/2021 CBC WITH DIFFE RENTI AL/PL ATELE T hematology comments: USER INTERFACE ENGINEER Not Available [facility] ([facility]) [address] [facility], [place], [address], 05/08/2021 08:25:08 05/07/20 21 05/08/2021 COMP. METAB OLIC PANEL (14) glucose 97 mg/dL 65-99 Not Available [facility] ([facility]) [address] [facility], [place], [address], 05/08/2021 08:25:09 05/07/20 21 05/08/2021 COMP. METAB OLIC PANEL (14) BUN 18 mg/dL 6-24 Not Available [facility] ([facility]) [address] [place], [address], 05/08/2021 08:25:09 05/07/20 21 05/08/2021 COMP. METAB OLIC PANEL (14) creatinine 1.20 mg/dL 0.57-1 .00 above high normal Not Available [facility] ([facility]) [address] [facility], [place], [address], 05/08/2021 08:25:09 05/07/20 21 05/08/2021 COMP. METAB OLIC PANEL (14) eGFR if nonafricn AM 54 mL/mi n/1.7 3 >59 below low normal Not Available [facility] ([facility]) [address] [facility], [place], [address], 05/08/2021 08:25:09 05/07/20 21 05/08/2021 COMP. METAB [...] a race varia ble. Not Available [facility] ([facility]) [address] [facility], [place], [address], 05/08/2021 08:25:09 05/07/20 21 05/08/2021 COMP. METAB OLIC PANEL (14) BUN/creatini ne ratio 15 9-23 Not Available [facility] ([facility]) [address] [place], [address], 05/08/2021 08:25:09 05/07/20 21 05/08/2021 COMP. METAB OLIC PANEL (14) sodium 139 mmol/ L 134-14 4 Not Available [facility] ([facility]) [address] [place], [address], 05/08/2021 08:25:09 05/07/20 21 05/08/2021 COMP. METAB OLIC PANEL (14) potassium 4.3 mmol/ L 3.5-5. 2 Not Available [facility] ([facility]) [address] [place], [address], 05/08/2021 08:25:09 05/07/20 21 05/08/2021 COMP. METAB OLIC PANEL (14) chloride 100 mmol/ L 96-106 Not Available [facility] ([facility]) [address] [place], [address], 05/08/2021 08:25:09 05/07/20 21 05/08/2021 COMP. METAB OLIC PANEL (14) carbon dioxide, total 23 mmol/ L 20-29 Not Available [facility] ([facility]) [address] [place], [address], 05/08/2021 08:25:09 05/07/20 21 05/08/2021 COMP. METAB OLIC PANEL (14) calcium 9.4 mg/dL 8.7-10 .2 Not Available [facility] ([facility]) [address] [place], [address], 05/08/2021 08:25:09 05/07/20 21 05/08/2021 COMP. METAB OLIC PANEL (14) protein, total 7.4 g/dL 6.0-8. 5 Not Available [facility] [address] [facility] [place], [address], 05/08/2021 08:25:09 05/07/20 21 05/08/2021 COMP. METAB OLIC PANEL (14) albumin 4.3 g/dL 3.8-4. 8 Not Available [facility] ([facility]) [address] [facility] [place], [address], 05/08/2021 08:25:09 05/07/20 21 05/08/2021 COMP. METAB OLIC PANEL (14) globulin, total 3.1 g/dL 1.5-4. 5 Not Available [facility] ([facility]) [address] [facility], [place], [address], 05/08/2021 08:25:09 05/07/20 21 05/08/2021 COMP. METAB OLIC PANEL (14) A/G ratio 1.4 1.2-2. 2 Not Available [facility] ([facility]) [address] [facility], [place], [address], 05/08/2021 08:25:09 05/07/20 21 05/08/2021 COMP. METAB OLIC PANEL (14) bilirubin, total <0.2 mg/dL 0.0-1. 2 Not Available [facility] ([facility]) [address] [facility] [place], [address], 05/08/2021 08:25:09 05/07/20 21 05/08/2021 COMP. METAB OLIC PANEL (14) alkaline phosphatase 126 IU/L 44-121 above high normal Ple ase note refer ence inter romie gustafson e Not Available [facility] ([facility]) [address] [facility], [place], [address], 05/08/2021 08:25:09 05/07/20 21 05/08/2021 COMP. METAB OLIC PANEL (14) AST (SGOT) 29 IU/L 0-40 Not Available [facility] ([facility]) [address] [facility] [place], [address], 05/08/2021 08:25:09 05/07/20 21 05/08/2021 COMP. METAB OLIC PANEL (14) ALT (SGPT) 37 IU/L 0-32 above high normal Not Available [facility] ([facility]) [address] [facility] [place], [address], 05/08/2021 08:25:09 05/07/20 21 05/08/2021 LIPID PANEL W/ CHOL/ HDL RATIO cholesterol, total 225 mg/dL 100-19 9 above high normal Not Available [facility] ([facility]) [address] [facility], [place], [address], 05/08/2021 08:25:11 05/07/20 21 05/08/2021 LIPID PANEL W/ CHOL/ HDL RATIO triglyceride s 356 mg/dL 0-149 above high normal Not Available [facility] ([facility]) [address] [place], [address], 05/08/2021 08:25:11 05/07/20 21 05/08/2021 LIPID PANEL W/ CHOL/ HDL RATIO HDL cholesterol 43 mg/dL >39 Not Available [facility] [address] [place], [address], 05/08/2021 08:25:11 05/07/20 21 05/08/2021 LIPID PANEL W/ CHOL/ HDL RATIO VLDL cholesterol michelle 62 mg/dL 5-40 above high normal Not Available [facility] ([facility]) [address] [place], [address], 05/08/2021 08:25:11 05/07/20 21 05/08/2021 LIPID PANEL W/ CHOL/ HDL RATIO LDL chol calc ([facility]) 120 mg/dL 0-99 above high normal Not Available [facility] ([facility]) [address] [place], [address], 05/08/2021 08:25:11 05/07/20 21 05/08/2021 LIPID PANEL W/ CHOL/ HDL RATIO comment: USER INTERFACE ENGINEER Not Available [facility] ([facility]) [address] [place], [address], 05/08/2021 08:25:11 05/07/20 21 05/08/2021 LIPID PANEL W/ CHOL/ HDL RATIO T. chol/HDL ratio 5.2 ratio 0.0-4. 4 above high normal T. Chol/ HDL Ratio Men Women 1/2 Avg.R isk 3.4 3.3 Avg.R isk 5.0 4.4 2X Avg.R isk 9.6 7.1 3X Avg.R isk 23.4 11.0 Not Available [facility] ([facility]) [address] [place], [address], 05/08/2021 08:25:11 05/07/20 21 05/08/2021 HEMOG LOBIN A1C hemoglobin A1C 6.6 % 4.8-5. 6 above high normal Predi abete s: 5.7 - 6.4 Diabe twan: >6.4 Glyce talia contr ol for adult s with diabe twan: <7.0 Not Available [facility] ([facility]) [address] [place], [address], 05/08/2021 08:25:12 10/02/19 22 10/02/2021 LIPID PANEL W/ CHOL/ HDL RATIO cholesterol, total 211 mg/dL 100-19 9 above high normal Not Available [facility] ([facility]) [address] [place], [address], 10/02/2021 08:21:36 10/02/19 22 10/02/2021 LIPID PANEL W/ CHOL/ HDL RATIO triglyceride s 207 mg/dL 0-149 above high normal Not Available [facility] ([facility]) [address] [place], [address], 10/02/2021 08:21:36 10/02/19 22 10/02/2021 LIPID PANEL W/ CHOL/ HDL RATIO HDL cholesterol 41 mg/dL >39 Not Available [facility] [address] [place], [address], 10/02/2021 08:21:36 10/02/19 22 10/02/2021 LIPID PANEL W/ CHOL/ HDL RATIO VLDL cholesterol michelle 37 mg/dL 5-40 Not Available [facility] [address] [place], [address], 10/02/2021 08:21:36 10/02/19 22 10/02/2021 LIPID PANEL W/ CHOL/ HDL RATIO LDL chol calc ([facility]) 133 mg/dL 0-99 above high normal Not Available [facility] ([facility]) [address] [facility], [place], [address], 10/02/2021 08:21:36 10/02/19 22 10/02/2021 LIPID PANEL W/ CHOL/ HDL RATIO comment: USER INTERFACE ENGINEER Not Available [facility] ([facility]) [address] [facility], [place], [address], 10/02/2021 08:21:36 10/02/19 22 10/02/2021 LIPID PANEL W/ CHOL/ HDL RATIO T. chol/HDL ratio 5.1 ratio 0.0-4. 4 above high normal T. Chol/ HDL Ratio Men Women 1/2 Avg.R isk 3.4 3.3 Avg.R isk 5.0 4.4 2X Avg.R isk 9.6 7.1 3X Avg.R isk 23.4 11.0 Not Available [facility] ([facility] [address] [facility], [place] [place], [address], 10/02/2021 08:21:36 10/02/19 22 10/02/2021 HEMOG LOBIN A1C hemoglobin A1C 6.8 % 4.8-5. 6 above high normal Predi abete s: 5.7 - 6.4 Diabe twan: >6.4 Glyce talia contr ol for adult s with diabe twan: <7.0 Not Available [facility] ([facility]) [address] [facility], [place], [address], 10/02/2021 08:21:37 01/18/20 20 01/18/2020 US, abdom en, compl ete No observ ation record ed. [address] (Imaging) [address], [place], [address], 07/13/2020 22:43:55 09/20/19 22 09/19/2021 MRI, lumba r spine , w/o contr ast No observ ation record ed. [address], [place], [address], 09/22/2021 09:00:38 09/20/19 22 09/19/2021 MRI, lumba r spine , w/o contr ast No observ ation record ed. [place] [id number] [facility] [address], [place], [address], 09/22/2021 09:01:03 11/15/19 22 11/14/2021 MRI, thora cic spine , w/o contr ast No observ ation record ed. [place] [id number] [facility] [address], [place], [address], 11/18/2021 08:58:30 Result Notes None recorded. Problems Name Problem SNOMED Code Status Onset Date Resolution Date Notes Provider Name and Address Organization Details Recorded Time Body mass index 40+ - severely obese 617626375 Active 2017 Cassie Larson PA-C Attn: Accounting ,[address] [place], [address] , [place] [facility] 8 10:29:42 Atypical squamous cells of undeterm ined signific ance on cervical Papanico laou smear 844339446 Active 2017 ASCUS and HPV+ on 11/23/17 - followed by Dr. Eneida Larson PA-C Attn: Accounting ,[address] [place], [address] , [place] [facility] 8 10:39:49 [facility] hyperten kaila 95518351 Active 2020 UMER STUART Attn: Accounting ,[address] [place], [address] , [place] [facility] 1 16:11:17 Neuropat hy 316371651 Active 2020 UMER STUART Attn: Accounting ,[address] [place], [address] , [place] [facility] 1 16:13:07 Supraven tricular tachycar sheila 7750544 Active 2021 UMER STUART Attn: Accounting ,[address], [place], [address] [place] [address] , [place] [facility] 2 14:36:15 Hyperlip idemia 40114769 Active 2021 UMER STUART Attn: Accounting ,[address], [place], [address] [place] [address] , [place] [facility] 2 15:21:39 HPV - Human papillom avirus test positive Active 2016 Followed by UMER Fleming Attn: Accounting ,[address], [place], [address] [place] [address] , [place] [facility] 2 14:00:08 Generali zed anxiety disorder 03467841 Active 2016 Cassie Larson PA-C Attn: Accounting ,[address], [place], [address] [place] [address] , [place] [facility] 7 15:59:30 Severe depressi on 795033962 Active 2016 UMER STUART Attn: Accounting ,[address], [place], [address] [place] [address] , [place] [facility] 2 14:00:02 Generali zed aches and pains 58446126 Active 2016 UMER STUART Attn: Accounting ,[address] [place], [address] , [place] [facility] 2 13:59:58 Toothach e 37959194 Completed 201605/01/2021 UMER STUART Attn: Accounting ,[address] [place], [address] , [place] [facility] 1 16:12:49 Edema of lower extremit y 126186101 Active 2016 Cassie Larson PA-C Attn: Accounting ,[address] [place], [address] , [place]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
--- OUTSIDE RECORDS SUMMARY | 2024-11-17 08:52 | XMS_ITS | Clinical Summary ---
Author Organization [facility] Address [address] [place] [address] Care Team Providers Care Deputy Director Of Nursing Name Role Phone Cassie Larson PA-C Primary Care Provider [phone] Source Comments [facility],non-owned Affiliates and Associated Physician Practices is amultiple site organization consisting of ambulatory clinics and hospital sitesin [place], [place], [place] and [place]. This disclosure is being madepursuant to the Care Everywhere program and may not contain all information available regarding this patient. 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 Gender Identity Not on file Sexual Orientation [...] file (Home) Address: [address] [place] [address] Payer ID:Not on file Group ID:Not on file Type:Self Pay Address: [place], [place] * Guarantor: SAM MILLER Account Type Relation to Patient Date of Phone Billing Address Personal/Family [address] [place] [address] SELF PAY NO INSURANCE Member Subscriber Plan / Payer (Ef fective for All Dates) Name:Sam Miller Member ID:Not on file Relation to Subscriber:Not on file Name:SAM MILLER Subscriber ID:Not on file Address: [address] [place] [address] Payer ID:Not on file Group ID:Not on file Type:Self Pay Address: [place], [place] * Guarantor: SAM MILLER Account Type Relation to Patient Date of Phone Billing Address Personal/Family [address] [place] [address] SELF PAY NO INSURANCE Member Subscriber Plan / Payer (Ef fective for All Dates) Name:Sam Miller Member ID:Not on file Relation to Subscriber:Not on file Name:SAM MILLER Subscriber ID:Not on file Address: [address] [place] [address] Payer ID:Not on file Group ID:Not on file Type:Self Pay Address: [place], [place] * Guarantor: SAM MILLER Account Type Relation to Patient Date of Phone Billing Address Personal/Family [address] [place] [address] SELF PAY NO INSURANCE Member Subscriber Plan / Payer (Ef fective for All Dates) Name:Sam Miller Member ID:Not on file Relation to Subscriber:Not on file Name:SAM MILLER Subscriber ID:Not on file Address: [address] [place] [address] Payer ID:Not on file Group ID:Not on file Type:Self Pay Address: [place], [place] Care Teams Deputy Director Of Nursing Relationship Specialty Start Date End Date Cassie Larson PA-C PCP - General 02/16/17
--- NOTE | 2024-11-17 08:56 | ED_ITS ---
HPI - General Adult General Chief complaint: Skin/Abscess/Foreign Body Stated complaint: lump on head Time Seen by Provider: 11/17/24 08:09 History of Present Illness HPI narrative: Patient is a 54-year-old female who presents ER with a lump on her head that she thinks is infected. She has had the lump for years but became more tender over last couple days. She tried open it with an Exacto knife but was unsuccessful. She now has some swelling of lymph nodes behind the left ear posterior neck. No difficulty breathing or swallowing. No fevers or chills. Unknown last tetanus shot. Related Data Home Medications ?Medication ?Instructions ?Recorded ?Confirmed ?Last Taken ?Type duloxetine 60 mg capsule,delayed 60 mg PO BID 05/13/19 08/17/24 08/17/24 History release sprinkle ergocalciferol (vitamin D2) 1,250 50,000 unit PO WEEKLY 05/13/19 08/17/24 08/16/24 History mcg (50,000 unit) capsule (Vitamin D2) famotidine 20 mg tablet 20 mg PO BID PRN Acid Reflux 05/13/19 08/17/24 08/16/24 History hydroxyzine HCl 50 mg BYMOUTH TID PRN Anxiety 05/13/19 08/17/24 08/16/24 History buspirone 15 mg tablet 15 mg PO BID 04/07/22 08/17/24 08/17/24 History pregabalin 150 mg capsule 200 mg PO TID 04/07/22 08/09/24 01/02/24 History cilostazol 100 mg tablet 100 mg PO BID 05/26/23 08/17/24 08/11/24 History dulaglutide 1.5 mg/0.5 mL 1.5 mg subcut WEEKLY 05/26/23 08/17/24 08/10/24 History subcutaneous pen injector (Trulicity) hydrochlorothiazide 25 mg tablet 25 mg PO DAILY 05/26/23 08/17/24 08/16/24 History ibuprofen 400 mg tablet 400 mg PO Q6H PRN Pain 05/26/23 08/09/24 2 Weeks Ago History ~12/20/23 metformin 500 mg tablet 500 mg PO BID 05/26/23 08/17/24 08/16/24 History rosuvastatin 5 mg tablet 5 mg PO HS 05/26/23 08/17/24 08/16/24 History pregabalin 200 mg capsule 200 mg PO Q8H 08/09/24 08/17/24 08/17/24 History Allergies Allergy/AdvReac Type Severity Reaction Status Date / Time mold Allergy Itching, Verified 08/17/24 08:24 WATERY EYES pollen extracts Allergy Itching, Verified 08/17/24 08:24 WATERY EYES Review of Systems Constitutional: Constitutional: Reports no additional constitutional complaints Integumentary/Breasts: Skin/Breast: Reports system reviewed and no additional complaints, except as docu [facility] Past Medical History Medical History DM2 (diabetes mellitus, type 2) Diabetic neuropathy Depression Numbness in both hands Knee pain, left Hip pain, left Back pain Kidney stone Endometriosis History of HPV infection Ovarian cyst Bilateral GERD (gastroesophageal reflux disease) HTN (hypertension) HLD (hyperlipidemia) Anxiety Diabetes Surgical History Surgical History History of incisional hernia repair Open periumbilical reducible incisional hernia repair (defect 2 cm) with Bard Ventralex ST mesh (6.4cm benton). on 01/03/24 History of loop electrical excision procedure (LEEP) History of cholecystectomy Family History Family History Mother Family history of kidney disease Family history of diabetes mellitus in first degree relative Sibling Family history of diabetes mellitus in first degree relative Patient's brother is in good health Other Cerebrovascular accident Family history of allergic disorder Family history of cardiovascular disease Hypertension Social History Social History Social History: The patient is single. She does not have a durable power collections attorney. She does need to have to be a full code. She has no children. She works in the bakery at [employer] 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 HEAD: Normocephalic. Subcutaneous cyst left parietal region with over lying erythema and scabbing. Fluctuant in the middle. ENT: Mucous membranes moist. NECK: Supple. Posterior cervical chain and posterior regular lymphadenopathy noted on left side. CHEST: Clear to auscultation. No respiratory distress. HEART: Regular rate and rhythm. Normal peripheral pulses. EXTREMITIES: Normal range of motion. No edema. NEURO: Alert and oriented x3. PSYCH: Normal mood and affect. Course Vital Signs Vital signs: Vital Signs Temperature 98.5 F 11/17/24 08:03 Pulse Rate 82 11/17/24 08:03 Respiratory Rate 14 11/17/24 08:03 Pulse Oximetry 98 11/17/24 08:03 Oxygen Delivery Room Air 11/17/24 08:03 Temperature 98.5 F 11/17/24 08:12 Pulse Rate 74 11/17/24 08:12 Respiratory Rate 14 11/17/24 08:12 Blood Pressure 161/69 H 11/17/24 08:12 Pulse Oximetry 98 11/17/24 08:12 Oxygen Delivery Room Air 11/17/24 08:03 Procedures Abscess I/D scalp: Date of Incision: 11/17/24 Time of Incision: 08:58 Side (if applicable): left Local Anesthetic: lidocaine 1% and with epi Amount of anesthesia used (mL): 3 Technique: incised with #11 blade Irrigation: No Packing used?: plain I&D Results: Pus Medical Decision Making Vital Signs Vital Signs: Vital Signs Temperature 98.5 F 11/17/24 08:03 Pulse Rate 82 11/17/24 08:03 Respiratory Rate 14 11/17/24 08:03 Pulse Oximetry 98 11/17/24 08:03 Oxygen Delivery Room Air 11/17/24 08:03 Temperature 98.5 F 11/17/24 08:12 Pulse Rate 74 11/17/24 08:12 Respiratory Rate 14 11/17/24 08:12 Blood Pressure 161/69 H 11/17/24 08:12 Pulse Oximetry 98 11/17/24 08:12 Oxygen Delivery Room Air 11/17/24 08:03 Discharge Plan Discharge Clinical Impression: Scalp cyst Patient Disposition: Home Condition: Stable Instructions: Antibiotic Form, Abscess (ED) Additional Instructions: You had an infected cyst on her scalp that has opened. Your tetanus shot was updated. Remove your packing in 2 days. Return to the ER if you have any additional concerns. Patient Language: S[place] Prescriptions: No Action hydroxyzine HCl 50 mg BYMOUTH TID PRN (Reason: Anxiety) famotidine 20 mg Tablet 20 mg PO BID PRN (Reason: Acid Reflux) ergocalciferol (vitamin D2) [Vitamin D2] 50,000 unit Capsule 50,000 unit PO WEEKLY Patient Comments: PT TAKES ON WEDNESDAY Rx Instructions: Fridays duloxetine 60 mg Capsule, Delayed Rel Sprinkle 60 mg PO BID buspirone 15 mg tablet 15 mg PO BID pregabalin 150 mg capsule 200 mg PO TID metformin 500 mg tablet 500 mg PO BID cilostazol 100 mg tablet 100 mg PO BID ibuprofen 400 mg Tablet 400 mg PO Q6H PRN (Reason: Pain) hydrochlorothiazide 25 mg tablet 25 mg PO DAILY rosuvastatin 5 mg tablet 5 mg PO HS Trulicity 1.5 mg/0.5 mL pen injector 1.5 mg SUBCUT WEEKLY Patient Comments: Wednesday's Rx Instructions: Mondays pregabalin 200 mg capsule 200 mg PO Q8H pantoprazole 40 mg tablet,delayed release (DR/EC) 40 mg PO QAM 30 Days Qty: 30 5RF Follow-up/Referrals: Harjit Devlin MD [Primary Care Provider] - 1 Week
== END 2024-11-17 09:44 | disposition home or self-care (01) ==
PROVIDERS: Emergency Provider Emergency Medicine; PCP Family Medicine
DX: L72.9 Follicular cyst of the skin and subcutaneous tissue, unspecified (principal); E11.40 Type 2 diabetes mellitus with diabetic neuropathy, unspecified; K21.9 Gastro-esophageal reflux disease without esophagitis; I10 Essential (primary) hypertension; E78.5 Hyperlipidemia, unspecified; Z23 Encounter for immunization
CPT/HCPCS: 10061; 90471; 90715; 99282

== ENCOUNTER 2024-12-27 02:06 | Day surgery (SDC) | payer BC, SELFPAY ==
[2024-12-06 14:35] VITALS: BMI 38.0
--- OUTSIDE RECORDS SUMMARY | 2024-12-27 02:09 | XMS_ITS | Data Portability ---
Author Organization [facility] CARMELITALarissa Address [address] [place] [address] Care Team Providers Care It Trainee Name Role Phone MOE MONIQUE Take Away Attendant [phone] MARYCHUY PERRY Orthopedic Surgeon CARLI CHAUDHRY Psychiatrist [...] 07/05/2020 generalized arthritis, worst in the feet. [email or web address] Not available 07/05/2020 12:33:10 Plan of Treatment Reminders Order Date Submit Date Provider Last Modified By Organization Details Last Modified Time Details Appointments None recorded. Lab HbA1c (hemoglobi n A1c), blood 2021 022 [place] [facility], [address], [place], [address], 08:21:37 lipid panel, serum 2021 022 [place] [facility], [address], [place], [address], 08:21:37 CBC w/ auto diff 2020 021 [facility], [address], [place], [address], 08:25:08 CMP, serum or plasma 2020 [facility], [address], [place], [address], 08:25:09 lipid panel, serum 2020 [facility], [address], [place], [address], 08:25:11 TSH + free T4, serum 2020 [facility], [address], [place], [address], 08:25:07 HbA1c (hemoglobi n A1c), blood 2020 [place] [facility], [address], [place], [address], 08:25:12 inflammati on panel, serum or plasma 2020 [facility], [address], [place], [address], 12:41:19 uric acid, serum or plasma 2020 [place] [facility], [address], [place], [address], 1 12:41:19 CBC 2019 [facility], [address], [address], [place], [address], 0 14:11:12 CMP, serum or plasma 2019 [place] [facility], [address] [facility], [address], [place], [address], 0 14:11:11 amylase + lipase, serum 2019 [facility], [address] [facility], [address], [place], [address], 0 14:11:13 ca 125, serum 2019 [place] [facility], [address] [facility], [address], [place], [address], 0 14:11:[address] referral 2020 021 [email or web address] Petey Diaz MD, [address] [facility], [facility] [address], [place], [address], 1 15:32:32 incident response analyst referral 2020 021 [email or web address] Not available 1 10:50:01 Procedures None recorded. Surgeries None recorded. Imaging US, abdomen, complete 2019 020 [facility] ([facility]), [address] [place], [address], 0 11:22:34 Medication Orders metoprolol succinate ER 25 mg tablet,ext ended release 24 hr 2021 022 [id number], [address] , [place], [address], 2 14:51:19 duloxetine 60 mg capsule,de layed release 2020 021 [place] [facility], [address], [place], [address], 1 12:00:13 buspirone 15 mg tablet 2020 021 [employer] [facility], [address], [place], [address], 16:05:48 [facility]adol 50 mg tablet 2020 [email or web address], [address] [place], [address], 15:15:05 hydroxyzin e pamoate 50 mg capsule 2020 021 [facility], [address] [place], [address], 12:41:24 Patient TargetsNo targets recorded. 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, [place], [address], 01/09/2020 14:11:11 01/08/20 20 01/09/2020 CMP, serum or plasm a BUN 13 mg/dL 6-24 Not Available [facility] [address] [facility], [place], [address], 01/09/2020 14:11:11 07/20/20 20 01/09/2020 CMP, serum or plasm a creatinine 0.76 mg/dL 0.57-1 .00 Not Available [facility] [address] [place], [address], 01/09/2020 14:11:11 01/08/20 20 01/09/2020 CMP, serum or plasm a eGFR if nonafricn AM 94 mL/mi n/1.7 3 >59 Not Available [facility] [address] [place], [address], 01/09/2020 14:11:11 01/08/20 20 01/09/2020 CMP, serum or plasm a eGFR if africn AM 108 mL/mi n/1.7 3 >59 Not Available [facility] [address] [place], [address], 01/09/2020 14:11:11 01/08/20 20 01/09/2020 CMP, serum or plasm a BUN/creatini ne ratio 17 9-23 Not Available [facility] [address] [place], [address], 01/09/2020 14:11:11 01/08/20 20 01/09/2020 CMP, serum or plasm a sodium 141 mmol/ L 134-14 4 Not Available [facility] [address] [place], [address], 01/09/2020 14:11:11 01/08/20 20 01/09/2020 CMP, serum or plasm a potassium 4.4 mmol/ L 3.5-5. 2 Not Available [facility] [address] [place], [address], 01/09/2020 14:11:11 01/08/20 20 01/09/2020 CMP, serum or plasm a chloride 103 mmol/ L 96-106 Not Available [facility] [address] [place], [address], 01/09/2020 14:11:11 01/08/20 20 01/09/2020 CMP, serum or plasm a carbon dioxide, total 24 mmol/ L Not Available [facility] [address] [facility], [place], [address], 01/09/2020 14:11:11 01/08/2001/09/2020 CMP, serum or plasm a calcium 9.0 mg/dL 8.7-10 .2 Not Available [facility] [address] [facility], [place], [address], 01/09/2020 14:11:11 01/08/20 20 01/09/2020 CMP, serum or plasm a protein, total 7.1 g/dL 6.0-8. 5 Not Available [facility] [address] [place], [address], 01/09/2020 14:11:11 01/08/20 20 01/09/2020 CMP, serum or plasm a albumin 4.1 g/dL 3.8-4. 8 Not Available [facility] [address] [facility], [place], [address], 01/09/2020 14:11:11 01/08/20 20 01/09/2020 CMP, serum or plasm a globulin, total 3.0 g/dL 1.5-4. 5 Not Available [facility] [address] [place], [address], 01/09/2020 14:11:11 01/08/20 20 01/09/2020 CMP, serum or plasm a A/G ratio 1.4 1.2-2. 2 Not Available [facility] [address] [place], [address], 01/09/2020 14:11:11 01/08/2001/09/2020 CMP, serum or plasm a bilirubin, total 0.2 mg/dL 0.0-1. 2 Not Available [facility] [address] [facility] [place], [address], 01/09/2020 14:11:11 01/08/20 20 01/09/2020 CMP, serum or plasm a alkaline phosphatase 127 IU/L 39-117 above high normal Not Available [facility] [address] [facility] [place], [address], 01/09/2020 14:11:11 01/08/20 20 01/09/2020 CMP, serum or plasm a AST (SGOT) 26 IU/L 0-40 Not Available [facility] [address] [facility] [place], [address], 01/09/2020 14:11:11 01/08/20 20 01/09/2020 CMP, serum or plasm a ALT (SGPT) 43 IU/L 0-32 above high normal Not Available [facility] [address] [facility] [place], [address], 01/09/2020 14:11:11 01/08/20 20 01/09/2020 CBC WBC 11.3 x10e3 /uL 3.4-10 .8 above high normal Not Available [facility] [address] [facility] [place], [address], 01/09/2020 14:11:12 01/08/20 20 01/09/2020 CBC RBC 4.48 x10e6 /uL 3.77-5 .28 Not Available [facility] [address] [facility] [place], [address], 01/09/2020 14:11:12 01/08/20 20 01/09/2020 CBC hemoglobin 12.3 g/dL 11.1-1 5.9 Not Available [facility] [address] [place], [address], 01/09/2020 14:11:12 01/08/20 20 01/09/2020 CBC hematocrit 38.4 % 34.0-4 6.6 Not Available [facility] [address] [place], [address], 01/09/2020 14:11:12 01/08/20 20 01/09/2020 CBC MCV 86 fL 79-97 Not Available [facility] [address] [place], [address], 01/09/2020 14:11:12 01/08/20 20 01/09/2020 CBC MCH 27.5 pg 26.6-3 3.0 Not Available [facility] [address] [place], [address], 01/09/2020 14:11:12 01/08/20 20 01/09/2020 CBC MCHC 32.0 g/dL 31.5-3 5.7 Not Available [facility] [address] [facility], [place], [address], 01/09/2020 14:11:12 01/08/20 20 01/09/2020 CBC RDW 15.0 % 11.7-1 5.4 Not Available [facility] [address] [place], [address], 01/09/2020 14:11:12 01/08/20 20 01/09/2020 CBC platelets 336 x10e3 /uL 150-45 0 Not Available [facility] [address] [place], [address], 01/09/2020 14:11:12 01/08/20 20 01/09/2020 CBC NRBC ASSURANCE SENIOR Not Available [facility] [address] [place], [address], 01/09/2020 14:11:12 01/08/20 20 01/09/2020 amyla se + lipas e, serum amylase 73 U/L 31-110 Not Available [facility] [address] [place], [address], 01/09/2020 14:11:13 01/08/20 20 01/09/2020 amyla se + lipas e, serum lipase 41 U/L 14-72 Not Available [facility] [address] [facility], [place], [address], 01/09/2020 14:11:13 01/08/20 20 01/09/2020 ca 125, serum cancer antigen (Ca) 125 10.7 U/mL 0.0-38 .1 Mariano Diagn ostic s Elect mariano milum inesc ence Immun oassa y (ECLI A) Value s obtai nicolasa with diffe rent assay metho ds or kits canno t be used inter gustafson devan . Resul ts canno t be inter prete d as absol leann evide nce of the prese nce or absen ce of jaleel oro se. Not Available [facility] [address] [facility], [place], [address], 01/09/2020 14:11:13 01/15/20 20 01/16/2020 amyla se + lipas e, serum amylase 60 U/L 31-110 Not Available [facility] [address] [facility], [place], [address], 01/16/2020 09:13:47 01/15/20 20 01/16/2020 amyla se + lipas e, serum lipase 28 U/L 14-72 Not Available [facility] [address] [place], [address], 01/16/2020 09:13:47 01/15/20 20 01/16/2020 hepat itis [...] ion test ([id number]). Not Available [facility] [address] [facility], [place], [address], 01/16/2020 09:13:48 01/15/20 20 01/16/2020 Hepat itis B virus core Ab, qual immun oassa y, serum or plasm a hep B core Ab, tot NEGATI VE negati ve Not Available [facility] [address] [place], [address], 01/16/2020 09:13:49 05/07/20 21 05/08/2021 TSH+F REE T4 TSH 2.980 uIU/m L 0.450- 4.500 Not Available [facility] [address] [place], [address], 05/08/2021 08:25:07 05/07/2005/08/2021 TSH+F REE T4 T4,free(dire ct) 0.91 NG/dL 0.82-1 .77 Not Available [facility] [address] [place], [address], 05/08/2021 08:25:07 05/07/2005/08/2021 CBC WITH DIFFE RENTI AL/PL ATELE T WBC 13.1 x10e3 /uL 3.4-10 .8 above high normal Not Available [facility] [address] [place], [address], 05/08/2021 08:25:08 05/07/20 21 05/08/2021 CBC WITH DIFFE RENTI AL/PL ATELE T RBC 5.06 x10e6 /uL 3.77-5 .28 Not Available [facility] [address] [facility], [place], [address], 05/08/2021 08:25:08 05/07/20 21 05/08/2021 CBC WITH DIFFE RENTI AL/PL ATELE T hemoglobin 14.1 g/dL 11.1-1 5.9 Not Available [facility] [address] [place], [address], 05/08/2021 08:25:08 05/07/20 21 05/08/2021 CBC WITH DIFFE RENTI AL/PL ATELE T hematocrit 42.4 % 34.0-4 6.6 Not Available [facility] [address] [place], [address], 05/08/2021 08:25:08 05/07/20 21 05/08/2021 CBC WITH DIFFE RENTI AL/PL ATELE T MCV 84 fL 79-97 Not Available [facility] [address] [place], [address], 05/08/2021 08:25:08 05/07/20 21 05/08/2021 CBC WITH DIFFE RENTI AL/PL ATELE T MCH 27.9 pg 26.6-3 3.0 Not Available [facility] [address] [place], [address], 05/08/2021 08:25:08 05/07/20 21 05/08/2021 CBC WITH DIFFE RENTI AL/PL ATELE T MCHC 33.3 g/dL 31.5-3 5.7 Not Available [facility] [address] [place], [address], 05/08/2021 08:25:08 05/07/20 21 05/08/2021 CBC WITH DIFFE RENTI AL/PL ATELE T RDW 14.2 % 11.7-1 5.4 Not Available [facility] [address] [facility], [place], [address], 05/08/2021 08:25:08 05/07/20 21 05/08/2021 CBC WITH DIFFE RENTI AL/PL ATELE T platelets 335 x10e3 /uL 150-45 0 Not Available [facility] [address] [facility], [place], [address], 05/08/2021 08:25:08 05/07/20 21 05/08/2021 CBC WITH DIFFE RENTI AL/PL ATELE T neutrophils 56 % not estab. Not Available [facility] [address] [facility], [place], [address], 05/08/2021 08:25:08 05/07/20 21 05/08/2021 CBC WITH DIFFE RENTI AL/PL ATELE T lymphs 35 % not estab. Not Available [facility] [address] [facility], [place], [address], 05/08/2021 08:25:08 05/07/20 21 05/08/2021 CBC WITH DIFFE RENTI AL/PL ATELE T monocytes 5 % not estab. Not Available [facility] [address] [facility], [place], [address], 05/08/2021 08:25:08 05/07/20 21 05/08/2021 CBC WITH DIFFE RENTI AL/PL ATELE T eos 3 % not estab. Not Available [facility] [address] [facility], [place], [address], 05/08/2021 08:25:08 05/07/20 21 05/08/2021 CBC WITH DIFFE RENTI AL/PL ATELE T basos 1 % not estab. Not Available [facility] [address] [facility], [place], [address], 05/08/2021 08:25:08 05/07/20 21 05/08/2021 CBC WITH DIFFE RENTI AL/PL ATELE T immature cells ASSURANCE SENIOR Not Available [facility] [address] [place], [address], 05/08/2021 08:25:08 05/07/20 21 05/08/2021 CBC WITH DIFFE RENTI AL/PL ATELE T neutrophils (absolute) 7.2 x10e3 /uL 1.4-7. 0 above high normal Not Available [facility] [address] [place], [address], 05/08/2021 08:25:08 05/07/20 21 05/08/2021 CBC WITH DIFFE RENTI AL/PL ATELE T lymphs (absolute) 4.6 x10e3 /uL 0.7-3. 1 above high normal Not Available [facility] [address] [place], [address], 05/08/2021 08:25:08 05/07/20 21 05/08/2021 CBC WITH DIFFE RENTI AL/PL ATELE T monocytes(ab solute) 0.7 x10e3 /uL 0.1-0. 9 Not Available [facility] [address] [place], [address], 05/08/2021 08:25:08 05/07/20 21 05/08/2021 CBC WITH DIFFE RENTI AL/PL ATELE T eos (absolute) 0.4 x10e3 /uL 0.0-0. 4 Not Available [facility] [address] [place], [address], 05/08/2021 08:25:08 05/07/20 21 05/08/2021 CBC WITH DIFFE RENTI AL/PL ATELE T baso (absolute) 0.2 x10e3 /uL 0.0-0. 2 Not Available [facility] [address] [place], [address], 05/08/2021 08:25:08 05/07/20 21 05/08/2021 CBC WITH DIFFE RENTI AL/PL ATELE T immature granulocytes 0 % not estab. Not Available [facility] [address] [facility], [place], [address], 05/08/2021 08:25:08 05/07/20 21 05/08/2021 CBC WITH DIFFE RENTI AL/PL ATELE T immature grans (abs) 0.0 x10e3 /uL 0.0-0. 1 Not Available [facility] [address] [facility], [place], [address], 05/08/2021 08:25:08 05/07/20 21 05/08/2021 CBC WITH DIFFE RENTI AL/PL ATELE T NRBC ASSURANCE SENIOR Not Available [facility] [address] [facility], [place], [address], 05/08/2021 08:25:08 05/07/20 21 05/08/2021 CBC WITH DIFFE RENTI AL/PL ATELE T hematology comments: ASSURANCE SENIOR Not Available [facility] [address] [facility], [place], [address], 05/08/2021 08:25:08 05/07/20 21 05/08/2021 COMP. METAB OLIC PANEL (14) glucose 97 mg/dL 65-99 Not Available [facility] [address] [place], [address], 05/08/2021 08:25:09 05/07/20 21 05/08/2021 COMP. METAB OLIC PANEL (14) BUN 18 mg/dL 6-24 Not Available [facility] [address] [place], [address], 05/08/2021 08:25:09 05/07/20 21 05/08/2021 COMP. METAB OLIC PANEL (14) creatinine 1.20 mg/dL 0.57-1 .00 above high normal Not Available [facility] [address] [place], [address], 05/08/2021 08:25:09 05/07/20 21 05/08/2021 COMP. METAB OLIC PANEL (14) eGFR if nonafricn AM 54 mL/mi n/1.7 3 >59 below low normal Not Available [facility] [address] [facility], [place], [address], 05/08/2021 08:25:09 05/07/20 21 05/08/2021 COMP. METAB [...] a race varia ble. Not Available [facility] [address] [facility], [place], [address], 05/08/2021 08:25:09 05/07/20 21 05/08/2021 COMP. METAB OLIC PANEL (14) BUN/creatini ne ratio 15 9-23 Not Available [facility] [address] [facility], [place], [address], 05/08/2021 08:25:09 05/07/20 21 05/08/2021 COMP. METAB OLIC PANEL (14) sodium 139 mmol/ L 134-14 4 Not Available [facility] [address] [place], [address], 05/08/2021 08:25:09 05/07/20 21 05/08/2021 COMP. METAB OLIC PANEL (14) potassium 4.3 mmol/ L 3.5-5. 2 Not Available [facility] [address] [place], [address], 05/08/2021 08:25:09 05/07/20 21 05/08/2021 COMP. METAB OLIC PANEL (14) chloride 100 mmol/ L 96-106 Not Available [facility] [address] [place], [address], 05/08/2021 08:25:09 05/07/20 21 05/08/2021 COMP. METAB OLIC PANEL (14) carbon dioxide, total 23 mmol/ L 20-29 Not Available [facility] [address] [place], [address], 05/08/2021 08:25:09 05/07/20 21 05/08/2021 COMP. METAB OLIC PANEL (14) calcium 9.4 mg/dL 8.7-10 .2 Not Available [facility] [address] [facility] [place], [address], 05/08/2021 08:25:09 05/07/20 21 05/08/2021 COMP. METAB OLIC PANEL (14) protein, total 7.4 g/dL 6.0-8. 5 Not Available [facility] [address] [facility] [place], [address], 05/08/2021 08:25:09 05/07/20 21 05/08/2021 COMP. METAB OLIC PANEL (14) albumin 4.3 g/dL 3.8-4. 8 Not Available [facility] [address] [facility] [place], [address], 05/08/2021 08:25:09 05/07/20 21 05/08/2021 COMP. METAB OLIC PANEL (14) globulin, total 3.1 g/dL 1.5-4. 5 Not Available [facility] [address] [place], [address], 05/08/2021 08:25:09 05/07/20 21 05/08/2021 COMP. METAB OLIC PANEL (14) A/G ratio 1.4 1.2-2. 2 Not Available [facility] [address] [place], [address], 05/08/2021 08:25:09 05/07/20 21 05/08/2021 COMP. METAB OLIC PANEL (14) bilirubin, total <0.2 mg/dL 0.0-1. 2 Not Available [facility] [address] [place], [address], 05/08/2021 08:25:09 05/07/20 21 05/08/2021 COMP. METAB OLIC PANEL (14) alkaline phosphatase 126 IU/L 44-121 above high normal Ple ase note refer ence inter romie gustafson e Not Available [facility] [address] [facility] [place], [address], 05/08/2021 08:25:09 05/07/20 21 05/08/2021 COMP. METAB OLIC PANEL (14) AST (SGOT) 29 IU/L 0-40 Not Available [facility] [address] [facility] [place], [address], 05/08/2021 08:25:09 05/07/20 21 05/08/2021 COMP. METAB OLIC PANEL (14) ALT (SGPT) 37 IU/L 0-32 above high normal Not Available [facility] [address] [facility] [place], [address], 05/08/2021 08:25:09 05/07/20 21 05/08/2021 LIPID PANEL W/ CHOL/ HDL RATIO cholesterol, total 225 mg/dL 100-19 9 above high normal Not Available [facility] [address] [place], [address], 05/08/2021 08:25:11 05/07/20 21 05/08/2021 LIPID PANEL W/ CHOL/ HDL RATIO triglyceride s 356 mg/dL 0-149 above high normal Not Available [facility] [address] [place], [address], 05/08/2021 08:25:11 05/07/20 21 05/08/2021 LIPID PANEL W/ CHOL/ HDL RATIO HDL cholesterol 43 mg/dL >39 Not Available [facility] [address] [place], [address], 05/08/2021 08:25:11 05/07/20 21 05/08/2021 LIPID PANEL W/ CHOL/ HDL RATIO VLDL cholesterol michelle 62 mg/dL 5-40 above high normal Not Available [facility] [address] [place], [address], 05/08/2021 08:25:11 05/07/20 21 05/08/2021 LIPID PANEL W/ CHOL/ HDL RATIO LDL chol calc ([facility]) 120 mg/dL 0-99 above high normal Not Available [facility] [address] [place], [address], 05/08/2021 08:25:11 05/07/20 21 05/08/2021 LIPID PANEL W/ CHOL/ HDL RATIO comment: ASSURANCE SENIOR Not Available [facility] [address] [place], [address], 05/08/2021 08:25:11 05/07/20 21 05/08/2021 LIPID PANEL W/ CHOL/ HDL RATIO T. chol/HDL ratio 5.2 ratio 0.0-4. 4 above high normal T. Chol/ HDL Ratio Men Women 1/2 Avg.R isk 3.4 3.3 Avg.R isk 5.0 4.4 2X Avg.R isk 9.6 7.1 3X Avg.R isk 23.4 11.0 Not Available [facility] [address] [facility], [place], [address], 05/08/2021 08:25:11 05/07/20 21 05/08/2021 HEMOG LOBIN A1C hemoglobin A1C 6.6 % 4.8-5. 6 above high normal Predi abete s: 5.7 - 6.4 Diabe twan: >6.4 Glyce talia contr ol for adult s with diabe twan: <7.0 Not Available [facility] [address] [place], [address], 05/08/2021 08:25:12 10/02/19 22 10/02/2021 LIPID PANEL W/ CHOL/ HDL RATIO cholesterol, total 211 mg/dL 100-19 9 above high normal Not Available [facility] [address] [place], [address], 10/02/2021 08:21:36 10/02/19 22 10/02/2021 LIPID PANEL W/ CHOL/ HDL RATIO triglyceride s 207 mg/dL 0-149 above high normal Not Available [facility] [address] [place], [address], 10/02/2021 08:21:36 10/02/19 22 10/02/2021 LIPID PANEL W/ CHOL/ HDL RATIO HDL cholesterol 41 mg/dL >39 Not Available [facility] [address] [place], [address], 10/02/2021 08:21:36 10/02/19 22 10/02/2021 LIPID PANEL W/ CHOL/ HDL RATIO VLDL cholesterol michelle 37 mg/dL 5-40 Not Available [facility] [address] [place], [address], 10/02/2021 08:21:36 10/02/19 22 10/02/2021 LIPID PANEL W/ CHOL/ HDL RATIO LDL chol calc ([facility]) 133 mg/dL 0-99 above high normal Not Available [facility] [address] [facility], [place], [address], 10/02/2021 08:21:36 10/02/19 22 10/02/2021 LIPID PANEL W/ CHOL/ HDL RATIO comment: ASSURANCE SENIOR Not Available [facility] [address] [facility], [place], [address], 10/02/2021 08:21:36 10/02/19 22 10/02/2021 LIPID PANEL W/ CHOL/ HDL RATIO T. chol/HDL ratio 5.1 ratio 0.0-4. 4 above high normal T. Chol/ HDL Ratio Men Women 1/2 Avg.R isk 3.4 3.3 Avg.R isk 5.0 4.4 2X Avg.R isk 9.6 7.1 3X Avg.R isk 23.4 11.0 Not Available [facility] [address] [facility], [place], [address], 10/02/2021 08:21:36 10/02/19 22 10/02/2021 HEMOG LOBIN A1C hemoglobin A1C 6.8 % 4.8-5. 6 above high normal Predi abete s: 5.7 - 6.4 Diabe twan: >6.4 Glyce talia contr ol for adult s with diabe twan: <7.0 Not Available [facility] [address] [facility], [place], [address], 10/02/2021 08:21:37 01/18/20 20 01/18/2020 US, abdom en, compl ete No observ ation record ed. [address] (Imaging) [facility] [address], [place], [address], 07/13/2020 22:43:55 09/20/19 22 09/19/2021 MRI, lumba r spine , w/o contr ast No observ ation record ed. [address], [place], [address], 09/22/2021 09:00:38 09/20/19 22 09/19/2021 MRI, lumba r spine , w/o contr ast No observ ation record ed. [place] [id number] [facility] [address], [place], [address], 09/22/2021 09:01:03 11/15/19 22 11/14/2021 MRI, thora cic spine , w/o contr ast No observ ation record ed. [address], [place], [address], 11/18/2021 08:58:30 Result Notes None recorded. Problems Name Problem SNOMED Code Status Onset Date Resolution Date Notes Provider Name and Address Organization Details Recorded Time Body mass index 40+ - severely obese 557658007 Active 2017 Cassie Larson PA-C Attn: Accounting ,[address] [place], [address] , [place] 8 10:29:42 Atypical squamous cells of undeterm ined signific ance on cervical Papanico laou smear 059792817 Active 2017 ASCUS and HPV+ on 11/23/17 - followed by Dr. Karma Larson PA-C Attn: Accounting ,[address] [place], [address] , [place] 8 10:39:49 [facility] hyperten kaila 79947583 Active 2020 UMER STUART Attn: Accounting ,[address] [place], [address] , [place] [facility] 1 16:11:17 Neuropat hy 843222227 Active 2020 UMER STUART Attn: Accounting ,[address] [place], [address] , [place] [facility] 1 16:13:07 Supraven tricular tachycar sheila 8000529 Active 2021 UMER STUART Attn: Accounting ,[address] [place], [address] , [place] 2 14:36:15 Hyperlip idemia 48104739 Active 2021 UMER STUART Attn: Accounting ,[address] [place], [address] , [place] 2 15:21:39 HPV - Human papillom avirus test positive Active 2016 Followed by UMER Fleming Attn: Accounting ,[address] [place], [address] , [place] 2 14:00:08 Generali zed anxiety disorder 18038575 Active 2016 Cassie Larson PA-C Attn: Accounting ,[address] [place], [address] , [place] 7 15:59:30 Severe depressi on 144277636 Active 2016 UMER STUART Attn: Accounting ,[address] [place], [address] , [place] 2 14:00:02 Generali zed aches and pains 80826550 Active 2016 UMER STUART Attn: Accounting ,[address] [place], [address] , [place] 2 13:59:58 Toothach e 87340584 Completed 201605/01/2021 UMER STUART Attn: Accounting ,[address] [place], [address] , [place] 1 16:12:49 Edema of lower extremit y 301612116 Active 2016 Cassie Larson PA-C Attn: Accounting ,[address] [facility], [place], [address] , [facility] - [facility] 7 15:06:33 Diabetes mellitus 79854366 Active 2016 Rula Goff MD Attn: Accounting ,[address] [facility], [place], [address] , [facility] - [facility] 9 15:48:20 Pain of left hip joint 00401898611 9100 Active 2016 Cassie Larson PA-C Attn: Accounting ,[address] [facility], [place], [address] , [facility] - [facility] 7 12:15:36 Upper respirat ory infectio n 14776360 Completed 201605/01/2021 UMER STUART Attn: Accounting ,[address] [facility], [place], [address] , [facility] - SI 1 16:12:54 Obesity 634305778 Completed 201601/05/2018 Cassie Larson PA-C Attn: Accounting ,[address] [facility], [place], [address] , [facility] - [facility] 8 10:29:31 Problem Notes None recorded. Procedures Surgical History Date Name Laterality Status Provider Name and Address Organization Details Recorded Time 07/22/19 20 Date of Last Pap Smear completed Rona Hector MA [facility] 11/16/2019 12:07:35 09/20/19 14 Cholecystectomy completed Martin Morton [facility] 12/31/19 17 14:42:49 Imaging Results None recorded. [...] 1 TABLET BY MOUTH TWICE A DAY 08/15/ 2022 active Not Available Not Available Not Avai [...] completed Not Available Not Available Not Available Crawford Vitamin A & D 400 unit-5000 unit [...] Available Not Available Not Available Microgest in 1.5/30 (21) 1.5 mg-30 mcg tablet 11/15 completed [...] active Not Available Not Available Not Avai labradha pregabali n 50 mg capsule TAKE 1 [...] Not Available Not Available Not Available Dasetta 135 (28) 1 mg-35 mcg tablet Take 1 tablet every day by oral route.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
--- OUTSIDE RECORDS SUMMARY | 2024-12-27 02:09 | XMS_ITS | Data Portability ---
Author Organization [place] - [facility] OFFICE Address [address] [place] [address] Assessment No assessment recorded. Plan of Treatment [...] By Organization Details Last Modified Time 05/30/2019 [id number] Weight loss 20 pounds Exercise advised Low cholesterol diet advised Low sodium diet advised Not available 05/30/2019 14:53:13 Scribed by Angelica Lopez PA-C Not available 05/30/2019 14:53:38 07/11/2019 [id number] Weight loss 20 pounds Exercise advised Low [...] 2018 12:29:10 06/25/19 20 06/23/2019 , echoc arfranciscoo gram No observ ation record ed. [facility] [address] [place] [address] Dr Gutiérrez, [place], [address], 07/09/2019 12:54:59 06/26/19 20 06/23/2019 , echoc ardio gram No observ ation record ed. hmesto Not Available 2019 12:59:31 06/29/19 20 06/23/2019 tread mill nucle ar stres s test (PROC ) No observ ation record ed. hmesto Not Available 2019 12:57:57 Result Notes None recorded. Problems Name Problem SNOMED Code Status Onset Date Resolution Date Notes Provider Name and Address Organization Details Recorded Time Supraventricul ar tachycardia 8424066 Active 2018 Hala Tigre null, [place] - [facility] 9 04:34:05 Essential hypertension 88962315 Active 2018 Hala [place] [facility] 9 04:34:19 Gastroesophage al reflux disease 364180763 Active 2018 H[place] [facility] 9 04:34:25 Type 2 diabetes mellitus 67488704 Active 2018 H[place] [facility] 9 04:34:37 Anxiety 46898514 Active 2018 H[place] [facility] 9 04:34:47 Chronic back pain 532317376 Active 2018 H[place] [facility] 9 04:34:58 Hyperlipidemia 50625739 Active 2018 H[place] [facility] 9 04:35:07 Kidney stone 43882114 Active 2018 Hala [place] [facility] 9 04:35:19 Cyst of ovary 78426813 Active 2018 H[place] [facility] 9 04:35:41 Numbness of hand 883716944 Active 2018 Hala Tigre [place] [facility] 9 04:36:05 Endocarditis 90607883 Active 2018 Yoselin Zhang null, [place] - [facility] 9 13:10:37 Diabetes mellitus 11795632 [facility] 2018 [facility] 13:11:02 Sleep pattern disturbance 61443529 Active 2019 Yoselin Zhang [facility] 0 15:48:07 Problem Notes None recorded. Medical [...] in Arterial blood by Pulse oximetry Systolic And Diastolic Provider Name and Address Organization Details Last Updated DateTime 0 170.18 cm 37.9 kg/m2 550462. 35 g 76 /min 98 % 98 % 110/70 mm[Hg] [facility] 0 16:16:08 Date Recorded Body height Body mass index (BMI) Body weight Heart rate Oxygen saturation Oxygen saturation in Arterial blood by Pulse oximetry Systolic And Diastolic Provider Name and Address Organization Details Last Updated DateTime 9 170.18 cm 39.2 kg/m2 284930. 09 g 76 /min 99 % 99 % 130/82 mm[Hg] [facility] 9 14:14:44 Social History Question Answer Notes LastModified by [employer] Details LastModified Time Tobacco Smoking Status Never Smoker Not Available [facility] 04/23/2020 03:30:40 Which Illicit Or Recreational Drugs Have You Used? None [id number] Information not available 04/23/2020 How Much Tobacco Do You Smoke? No [id number] Information not available 04/23/2020 How Many Years Have You Smoked Tobacco? 0 [id number] Information not available 04/23/2020 Sex: Unknown Functional Status Question Answer Note LastModified by [employer] Details LastModified Time What is your level of alcohol consumption? None [id number] Information not available 04/23/2020 Do you or have you ever used smokeless tobacco? Never used smokeless tobacco [id number] Information not available 04/23/2020 Do you or have you ever used e-cigarettes or vape? Never used electronic cigarettes [id number] Information not available 04/23/2020 Mental Status None [...] History Condition Response Diabetes Y Hyperlipidemia Y GERD/Reflux Y Arrhythmia Y Hypertension Y Gynecological HistoryNo gynecological history recorded. Obstetrics History GPAL:G 0 P 0 0 0 0 Past Encounters Encounter ID Performer Location Encounter Start Date Encounter Closed Date Diagnosis/Indication Diagnosis SNOMED-CT Code Diagnosis ICD10 Code Diagnosis Note [id number] Lencho Canseco MD [facility] OFFICE [address] [place] [address] 05/30/2019 14:03:57 06/03/2019 10:11:15 Edema of lower extremity 166685070 R60.0 Cr is 0.88 05/23/19. She may resume Lasix 40mg daily. Will order echo to evaluate for structural disease. Swelling is R>L; will order venous reflux study if echo is normal. Dyspnea on exertion 6084 5006 R06.09 Echo to evaluate for structural disease. Supraventr icular tachycardia 7089032 I47.1 Recent diagnosis, hospital admission 05/13/2019 . Episodes of palpitatio ns over past 2 weeks, last seconds. Symptoms are not limiting, fairly well controlled on Metoprolol . Treadmill Myoview Stress test, to evaluate exercise induced symptoms. Continue Metoprolol . Continue reduced caffeine intake. Consider mobile telemetry, and possible ablation if symptoms persist or worsen. Essential hypertension 69261787 I10 Controlled . Continue medication s. Hyperlipidemia 58443291 E78.5 Needs to keep LDL less than 100, and HDL more than 40 Will get fasting lipids for follow up Acute inju ry of kidney 1675488387 3629946 N17.9 05/23/2019 Cr 0.88. [id number] Lencho Canseco MD [facility] OFF[facility] [address] [place] [address] 07/11/2019 15:54:25 07/11/2019 17:28:42 Essential hypertension 00089251 I10 Controlled . Continue medication s. Sleep tyesha obie disturbance 84662593 G47.9 Will order sleep study to evaluate for KEVIN. Supraventr icular tachycardia 5931314 I47.1 Recent diagnosis, hospital admission 05/13/2019 . Now on Metoprolol with fair control, reports 2-3 episodes of palpitatio ns lasting 30 min. She may take extra Metoprolol with symptoms. Also educated pt on vagal maneuvers Continue Metoprolol . Continue reduced caffeine intake. Consider mobile telemetry, and possible ablation if symptoms persist or worsen. Type 2 sheila betes mellitus without complication 501662151 E11.9 Treatment and evaluation by primary care [...] Black Member ID Guarantor Name 05/17/2020 1 [facility] - DOS PRIOR TO 2020 (MEDICAID REPLACEMENT - HMO) Apryl Pham [id number] Apryl Pham Notes Date Note Type Note Provider Name and Address Organization Details Recorded Time 05/30/2019 text/html 05/30/19 CC : palpitations 48 years-old Female with h/o Hypertension, Hyperlipidemia and Type 2 Diabetes mellitus is here for hospital follow up . She was in [facility] in 05/13/19 because of Subraventricular tachycardia . [...] (age 70s) and uncle (age 50s) with NM Results from this visit, or from the [...] , CR 0.88 , Lencho Canseco MD [address] [place], [address], [place] [facility] 06/03/2019 10:11:13 07/11/2019 text/html 07/11/19 CC : palpitations 48 years-old Female with h/o Hypertension, Hyperlipidemia and Type 2 Diabetes mellitus is here for hospital follow up . She was in [facility] in 05/13/19 because of Supraventricular tachycardia . [...] (age 70s) and uncle (age 50s) with NM *Had negative myocardial perfusion study done in [...] Attachment available electrocardiogram 05-30-2019 EKG, 05/30/19: Anteroseptal NM, age undetermined, mu unknownelectrocardiogr am 05-30-2019 Guilherme brunner [place] - [facility] 07/11/2019 17:28:40 OBGyn Episode No OBEpisode recorded.
[2024-12-27 07:57] VITALS: BP 129/75; PULSE 75; RESP 18; TEMP 36.3; O2SAT 100; BMI 36.8
[2024-12-27] MEDS: LACTATED RINGERS 1,000 ML 150 ML IV CONT (08:06)
--- NOTE | 2024-12-27 08:26 | P.PNAN_ITS ---
Anes - Initial Pre Proc Eval Procedure: Operation Date: 12/27/24 09:00 Proposed Procedures p Esophagogastroduodenoscopy EGD - Tony Robertson MD Date/Time: 12/27/24 08:26 Surgeon: Tony Robertson MD Pre Op Diagnosis: Hx of other diseases of the digestive system Patient Data Age: 54 Gender: F Height: 1.7 m Weight: 106.6 kg Last Vital Signs Temp 97.3 F L 12/27/24 07:57 Pulse 75 12/27/24 07:57 Resp 18 12/27/24 07:57 BP 129/75 12/27/24 07:57 Pulse Ox 100 12/27/24 07:57 O2 Del Method Room Air 12/27/24 07:57 Allergies Allergy/AdvReac Type Severity Reaction Status Date / Time mold Allergy Itching, Verified 12/06/24 14:31 WATERY EYES pollen extracts Allergy Itching, Verified 12/06/24 14:31 WATERY EYES Home Medications ?Medication ?Instructions ?Recorded ?Confirmed ?Type duloxetine 60 mg capsule,delayed 60 mg PO BID 05/13/19 12/27/24 History release sprinkle ergocalciferol (vitamin D2) 1,250 50,000 unit PO WEEKLY 05/13/19 12/27/24 History mcg (50,000 unit) capsule (Vitamin D2) famotidine 20 mg tablet 20 mg PO BID PRN Acid Reflux 05/13/19 12/06/24 History hydroxyzine HCl 50 mg BYMOUTH TID PRN Anxiety 05/13/19 12/27/24 History buspirone 15 mg tablet 15 mg PO BID 04/07/22 12/27/24 History pregabalin 150 mg capsule 200 mg PO TID 04/07/22 12/06/24 History cilostazol 100 mg tablet 100 mg PO BID 05/26/23 12/27/24 History dulaglutide 1.5 mg/0.5 mL 1.5 mg subcut WEEKLY 05/26/23 12/06/24 History subcutaneous pen injector (Trulicity) hydrochlorothiazide 25 mg tablet 25 mg PO DAILY 05/26/23 12/27/24 History ibuprofen 400 mg tablet 400 mg PO Q6H PRN Pain 05/26/23 12/06/24 History metformin 500 mg tablet 500 mg PO BID 05/26/23 12/27/24 History rosuvastatin 5 mg tablet 5 mg PO HS 05/26/23 12/06/24 History pregabalin 200 mg capsule 200 mg PO Q8H 08/09/24 12/27/24 History pantoprazole 40 mg tablet,delayed 40 mg PO QAM 1 month #30 tabs 08/20/24 12/27/24 Rx release dulaglutide 3 mg/0.5 mL 3 mg subcut WEEKLY 12/06/24 12/27/24 History subcutaneous pen injector (Trulicity) atorvastatin 10 mg tablet 10 mg PO QPM 12/27/24 12/27/24 History Laboratory Tests 12/27/24 08:04 POC Capillary Glucose 123 H mg/dl (65-105) Patient hx anesthesia problems: none Family hx anesthesia problems: none Results Review: All pre-operative results and documents have been reviewed as part of the pre- operative evaluation. [facility] Past Medical History Medical History DM2 (diabetes mellitus, type 2) Diabetic neuropathy Depression Numbness in both hands Knee pain, left Hip pain, left Back pain Kidney stone Endometriosis History of HPV infection Ovarian cyst Bilateral GERD (gastroesophageal reflux disease) HTN (hypertension) HLD (hyperlipidemia) Anxiety Diabetes Surgical History Surgical History History of incisional hernia repair Open periumbilical reducible incisional hernia repair (defect 2 cm) with Bard Ventralex ST mesh (6.4cm [place]). on 01/03/24 History of loop electrical excision procedure (LEEP) History of cholecystectomy Family History Family History Mother Family history of kidney disease Family history of diabetes mellitus in first degree relative Sibling Family history of diabetes mellitus in first degree relative Patient's brother is in good health Other Cerebrovascular accident Family history of allergic disorder Family history of cardiovascular disease Hypertension Social History Social History Social History: The patient is single. She does not have a durable power assistant city attorney. She does need to have to be a full code. She has no children. She works in the bakery at [employer] Smoking status: Never smoker Alcohol intake: current Alcohol use details: DOES NOT DRINK NOW Substance use: never Substance use type: does not use Other substance usage details: LAST USE 2 YRS AGO Do You Feel Safe in your Home?: Yes Lack of Transportation: No Lack of Food: Sometimes True Current Housing: I Have Housing Concerned About Future Housing: No Difficulty Paying Gas/Electric Bills: No Difficulty Paying for Meds: No Currently Unemployed: No Education: Associate Degree Difficulty w/ Childcare or Family Care: No Living arrangements: with family Occupation/Education: occupation Additional occupation/education comments: [employer] at [employer] Gender identity (if verbalized by the patient): Female Spiritual care concerns: No Agree to blood products: Yes Anes - Eval Final PreProcedure Day of Procedure 12/27/24 08:26 Patient weight: obese Lungs: normal air movement Airway: Mallampati scale class II and special considerations (Missing many teeth, upper incisor. ) Neurological: alert and oriented Last oral intake: >/= 8 hours ASA classification: III Emergent: no Anesthetic plan: proceed Anesthesia type and monitoring: general GIVS and standard monitoring Results Review: All pre-operative results and documents have been reviewed as part of the pre-operative evaluation. HTN, hyperlipidemia, DM fsbs 123, hx of PUD. Informed Consent: The patient's anesthetic plan and its attendant risks and benefits were discussed with the patient/family/POA. Questions were solicited and answers provided to the satisfaction of the patient/family/POA.
--- NOTE | 2024-12-27 08:35 | P.HP_ITS ---
History of Present Illness History of Present Illness Consent: Risks, benefits, and alternatives have been discussed and questions answered. Patient agrees to proceed with procedure. Chief complaint: Hx of other diseases of the digestive system Narrative: Apryl Pham is a 54 year old female with gerd and ulcerative esophagitis 07/2024 better with ppi Review of Systems Review of Systems: All systems reviewed & are unremarkable except as noted in HPI and below PMFSH Past Medical History Medical History DM2 (diabetes mellitus, type 2) Diabetic neuropathy Depression Numbness in both hands Knee pain, left Hip pain, left Back pain Kidney stone Endometriosis History of HPV infection Ovarian cyst Bilateral GERD (gastroesophageal reflux disease) HTN (hypertension) HLD (hyperlipidemia) Anxiety Diabetes Surgical History Surgical History History of incisional hernia repair Open periumbilical reducible incisional hernia repair (defect 2 cm) with Bard Ventralex ST mesh (6.4cm [place] on 01/03/24 History of loop electrical excision procedure (LEEP) History of cholecystectomy Family History Family History Mother Family history of kidney disease Family history of diabetes mellitus in first degree relative Sibling Family history of diabetes mellitus in first degree relative Patient's brother is in good health Other Cerebrovascular accident Family history of allergic disorder Family history of cardiovascular disease Hypertension Social History Social History Social History: The patient is single. She does not have a durable power market developer. She does need to have to be a full code. She has no children. She works in the bakery at [employer] Smoking status: Never smoker Alcohol intake: current Alcohol use details: DOES NOT DRINK NOW Substance use: never Substance use type: does not use Other substance usage details: LAST USE 2 YRS AGO Do You Feel Safe in your Home?: Yes Lack of Transportation: No Lack of Food: Sometimes True Current Housing: I Have Housing Concerned About Future Housing: No Difficulty Paying Gas/Electric Bills: No Difficulty Paying for Meds: No Currently Unemployed: No Education: Associate Degree Difficulty w/ Childcare or Family Care: No Living arrangements: with family Occupation/Education: occupation 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 Gender identity (if verbalized by the patient): Female Spiritual care concerns: No Agree to blood products: Yes Meds Home Medications and Allergies Home Medications ?Medication ?Instructions ?Recorded ?Confirmed ?Type duloxetine 60 mg capsule,delayed 60 mg PO BID 05/13/19 12/27/24 History release sprinkle ergocalciferol (vitamin D2) 1,250 50,000 unit PO WEEKLY 05/13/19 12/27/24 History mcg (50,000 unit) capsule (Vitamin D2) famotidine 20 mg tablet 20 mg PO BID PRN Acid Reflux 05/13/19 12/06/24 History hydroxyzine HCl 50 mg BYMOUTH TID PRN Anxiety 05/13/19 12/27/24 History buspirone 15 mg tablet 15 mg PO BID 04/07/22 12/27/24 History pregabalin 150 mg capsule 200 mg PO TID 04/07/22 12/06/24 History cilostazol 100 mg tablet 100 mg PO BID 05/26/23 12/27/24 History dulaglutide 1.5 mg/0.5 mL 1.5 mg subcut WEEKLY 05/26/23 12/06/24 History subcutaneous pen injector (Trulicity) hydrochlorothiazide 25 mg tablet 25 mg PO DAILY 05/26/23 12/27/24 History ibuprofen 400 mg tablet 400 mg PO Q6H PRN Pain 05/26/23 12/06/24 History metformin 500 mg tablet 500 mg PO BID 05/26/23 12/27/24 History rosuvastatin 5 mg tablet 5 mg PO HS 05/26/23 12/06/24 History pregabalin 200 mg capsule 200 mg PO Q8H 08/09/24 12/27/24 History pantoprazole 40 mg tablet,delayed 40 mg PO QAM 1 month #30 tabs 08/20/24 5 Rx release dulaglutide 3 mg/0.5 mL 3 mg subcut WEEKLY 12/06/24 12/27/24 History subcutaneous pen injector (Trulicity) atorvastatin 10 mg tablet 10 mg PO QPM 12/27/24 12/27/24 History Allergies Allergy/AdvReac Type Severity Reaction Status Date / Time mold Allergy Itching, Verified 12/06/24 14:31 WATERY EYES pollen extracts Allergy Itching, Verified 12/06/24 14:31 WATERY EYES Vital Signs Vital Signs - 24 hr 12/27/24 07:57 Temperature 97.3 F L Pulse Rate 75 Respiratory Rate 18 Blood Pressure 129/75 Pulse Oximetry 100 Oxygen Delivery Room Air Exam Const: General: comfortable and no acute distress HENMT: Face/Nose/Sinus: Normal nares present Eyes: General: appearance normal, both eyes and all related structures Neck: Neck: no JVD Resp: Auscultation: clear to auscultation bilaterally Cardio: Rate: regular rate Rhythm: regular rhythm GI: Inspection: non-distended GI Palp: Yes Soft to palpation Skin: General skin exam: normal color Neuro: Speech: normal speech Extrem: General: normal to inspection Psych: Mental Status: mental status grossly normal Assessment and Plan Assessment and plan (1) GERD (gastroesophageal reflux disease): Code(s): K21.9 - Gastro-esophageal reflux disease without esophagitis Status: Chronic Assessment and Plan: egd better with ppi
[2024-12-27 08:42] VITALS: BP 122/68; PULSE 76; RESP 22; O2SAT 97
--- NOTE | 2024-12-27 08:42 | S_PTH ---
PATIENT: Apryl Pham LOC: [facility]#:[id number] AGE/SX: 54/F ROOM: RE12/27/[address]: Tony Robertson MD : 1970 BED: DIS: 12/27/2024 SPEC #: [id number] RECD: 12/27/24 10:06 STATUS: ROSE REDimas #: [id number] JESSICA: 12/27/24 08:[address]: Tony Robertson DEPT: [facility] Surgical RECD BY: Annel Burleson ENTERED: 12/27/24 10:06 SP TYPE: Surgical OTHR DR: Harjit Devlin MD Tissues: A - Esophageal Biopsy Procedures: Hematoxylin and Eosin Stain Gross and Microscopic Level 4
[2024-12-27 08:52] VITALS: BP 126/67; PULSE 70; RESP 22; O2SAT 97
[2024-12-27 09:02] VITALS: BP 116/70; PULSE 70; RESP 20; O2SAT 99
== END 2024-12-27 09:13 | disposition home or self-care (01) ==
PROVIDERS: PCP Family Medicine; Referring Provider Internal Medicine Gastroenterology; Visit Provider Internal Medicine Gastroenterology
PROC: 0DJ08ZZ Inspection of Upper Intestinal Tract, Via Natural or Artificial Opening Endoscopic (ICD-10-PCS; CPT 43239; principal; 2024-12-27 09:00)
DX: K21.00 Gastro-esophageal reflux disease with esophagitis, without bleeding (principal); K44.9 Diaphragmatic hernia without obstruction or gangrene; I10 Essential (primary) hypertension; E78.5 Hyperlipidemia, unspecified; F41.9 Anxiety disorder, unspecified; E11.40 Type 2 diabetes mellitus with diabetic neuropathy, unspecified; F32.A Depression, unspecified; N80.9 Endometriosis, unspecified; E66.9 Obesity, unspecified; Z68.36 Body mass index [BMI] 36.0-36.9, adult; Z79.85 Long-term (current) use of injectable non-insulin antidiabetic drugs; Z79.1 Long term (current) use of non-steroidal anti-inflammatories (NSAID); Z79.84 Long term (current) use of oral hypoglycemic drugs; Z98.890 Other specified postprocedural states; Z90.49 Acquired absence of other specified parts of digestive tract; Z87.442 Personal history of urinary calculi; Z87.11 Personal history of peptic ulcer disease; Z87.19 Personal history of other diseases of the digestive system; Z82.49 Family history of ischemic heart disease and other diseases of the circulatory system
CPT/HCPCS: 43239; 82948; 88305; J2704; J7120